=== PATIENT | female | born 1940 | race Caucasian/White ===

== ENCOUNTER 2017-02-08 01:44 | Emergency (ER) | payer MEDICARE, MEDICAID ==
[2017-02-08] MEDS ORDERED: LORazepam 2 MG/ML MDV IVPUSH ONE (02:10)
--- NOTE | 2017-02-08 02:16 | EDM.PDOC ---
ED HISTORY OF PRESENT ILLNESS - General Chief Complaint: Chest Pain Stated Complaint: Chest pain Time Seen by Provider: 02/08/17 02:05 Source of Information: Reports: Patient, EMS, custodial records - History of Present Illness INITIAL COMMENTS - FREE TEXT/NARRATIVE: patient brought over from care center by ambulance for chest pain. pain is localized to sternum does not radiate. onset was sudden. in route she was given ASA and also a nitro with no change in pain. no nausea, vomiting, SOB, diaphoresis. 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 - Related Data Allergies/ADRs: Allergies Allergy/AdvReac Type Severity Reaction Status Date / Time erythromycin base Allergy cannot Verified 12/22/16 23:35 [Erythromycin Base] remember] hydrochlorothiazide Allergy Cannot Verified 12/22/16 23:35 Remember Penicillins Allergy Cannot Verified 12/22/16 23:35 Remember Sulfa (Sulfonamide Allergy Cannot Verified 12/22/16 23:35 Antibiotics) Remember trimethoprim Allergy Cannot Verified 12/22/16 23:35 Remember Home Meds: Home Meds Acetaminophen [Acetaminophen Extra Strength] 500 mg PO BID 04/02/14 [History] Calcium Carbonate/Vitamin D3 [Calcium 250+D] 1 tab PO BID 04/02/14 [History] Cyanocobalamin (Vitamin B-12) [Vitamin B-12] 1,000 mcg PO DAILY 04/02/14 [ History] Docusate Sodium/Sennosides [Senna Plus] 2 tab PO BID 04/02/14 [History] Folic Acid 1 mg PO BEDTIME 04/02/14 [History] Gabapentin [Neurontin] 800 mg PO TID 04/02/14 [History] Levothyroxine [Synthroid] 50 mcg PO DAILY 04/02/14 [History] Losartan [Cozaar] 50 mg PO DAILY 04/02/14 [History] Multivitamin [Multi-Vitamin Daily] 1 tab PO DAILY 04/02/14 [History] Ranitidine [Zantac] 150 mg PO DAILY 04/02/14 [History] carBAMazepine [Carbatrol] 300 mg PO BID 04/02/14 [History] carBAMazepine [TEGretol XR] 200 mg PO BID 04/02/14 [History] Acetaminophen [Tylenol] 325 mg PO Q4HR PRN 09/28/14 [History] Bisacodyl [Dulcolax] 5 mg PO DAILY PRN 09/28/14 [History] Zinc Oxide [Desitin] 1 gm TOP DAILY 09/28/14 [History] Cranberry Fruit Concentrate [Cranberry] 450 mg PO TID 06/30/16 [History] Magnesium 250 mg PO DAILY 06/30/16 [History] Polyethylene Glycol 3350 [MiraLAX] 17 gm PO DAILY 06/30/16 [History] Trolamine Salicylate/Aloe Vera [Aspercreme 10%] 1 gm TOP BID 06/30/16 [History] Bisacodyl [Biscolax] 10 mg RC DAILY PRN 12/23/16 [History] Cyclobenzaprine [Flexeril] 5 mg PO DAILY 12/23/16 [History] Cyclobenzaprine [Flexeril] 5 mg PO Q8HR PRN 12/23/16 [History] Gabapentin [Neurontin] 200 mg PO TID 12/23/16 [History] Polyvinyl Alcohol/Povidone [Hm Artificial Tears Eye Drops] 1 drop EYEBOTH BID [History] Acetaminophen/HYDROcodone [[place] 325-5 MG] 0.5 tab PO BID #1 tablet 12/25/16 [Rx ] Nitrofurantoin Monohyd/M-Cryst [IJD: Nitrofurantoin Haakon-MCR] 100 mg PO BID #8 capsule 12/25/16 [Rx] Past Medical History HEENT History: Reports: Other (see below) Other HEENT History: Dry Eyes Cardiovascular History: Reports: Hypertension Gastrointestinal History: Reports: Chronic constipation, GERD Genitourinary History: Reports: Urinary incontinence, UTI, recurrent Musculoskeletal History: Reports: Osteoporosis, Other (see below) Other Musculoskeletal History: Chronic Pain. Flaccid Hemiplegia affecting right dominant side Neurological History: Reports: Cerebral palsy, Seizure, Other (see below) Other Neuro History: Aphasia (following unspecified Cerebrovascular Disease), flaccid hemiplegia affecting right dominant side, localization-related symptomatic epilepsy and epileptic syndromes with complex partial seizures, not intractable, without status epilepticus Psychiatric History: Reports: Other (see below) Other Psychiatric History: Unspecified Dementia Endocrine/Metabolic History: Reports: Hypothyroidism, Osteoporosis Hematologic History: Reports: Anemia Dermatologic History: Reports: Other (see below) Other Dermatologic History: contact dermatitis - Infectious Disease History Infectious Disease History: Reports: MRSA Other Infectious Disease History: hx of mrsa and ltc isolation Social & Family History - Family History Family Medical History: Unobtainable - Tobacco Use Smoking Status *Q: Never Smoker Second Hand Smoke Exposure: No - Caffeine Use Caffeine Use: Reports: None - Alcohol Use Days Per Week of Alcohol Use: 0 - Recreational Drug Use Recreational Drug Use: No ED ROS GENERAL - Review of Systems Review Of Systems: ROS reveals no pertinent complaints other than HPI. ED EXAM, GENERAL - Physical Exam Exam: See Below Exam Limited By: Language barrier Respiratory/Chest: no respiratory distress, lungs clear, normal breath sounds, other (chest tender upon palpation to sternum area) Cardiovascular: normal peripheral pulses, regular rate, rhythm, no gallop, tachycardia GI/Abdominal: normal bowel sounds, soft Skin Exam: Warm, Dry, Intact EKG INTERPRETATION EKG Date: 02/08/17 Time: 02:05 Rhythm: other (sinus tach) [place]: normal P-wave: present QRS: normal ST-T: normal QT: normal Course - Vital Signs Last Recorded V/S: Last Vital Signs Temp 35.8 C 02/08/17 01:45 Pulse 108 H 02/08/17 01:45 Resp 18 02/08/17 01:45 BP 147/95 H 02/08/17 01:45 Pulse Ox 95 02/08/17 01:45 - Orders/Labs/Meds Orders: Active Orders 24 hr Category Date Time Status EKG 12 Lead [EKG Documentation Completion] [RC] STAT Care 02/08/17 02:08 Active Labs: Laboratory Tests 02/08/17 02/08/17 02/08/17 Range/Units 02:30 02:30 02:30 WBC 6.5 (4.0-10.0) x10^3/uL RBC 3.14 L (4.00-5.50) x10^6/uL Hgb 9.5 L (12.0-16.0) g/dL Hct 30.0 L (33.0-47.0) % MCV 95.5 H (78.0-93.0) fL MCH 30.3 (26.0-32.0) pg MCHC 31.7 L (32.0-36.0) g/dL RDW Coeff of Gabrielle 13.3 (10.0-15.0) % Plt Count 344 (130-400) x10^3/uL Neut % (Auto) 65.8 (50.0-80.0) % Lymph % (Auto) 14.4 L (25.0-50.0) % Haakon % (Auto) 9.8 (2.0-11.0) % Eos % (Auto) 9.4 H (0.0-4.0) % Baso % (Auto) 0.6 (0.2-1.2) % Sodium 142 (136-145) mmol/L Potassium 3.8 (3.5-5.1) mmol/L Chloride 106 (98-107) mmol/L Carbon Dioxide 28 (21-32) mmol/L BUN 27 H (7-18) mg/dL Creatinine 1.2 H (0.55-1.02) mg/dL Est Cr Clr Drug Dosing TNP Estimated GFR (MDRD) 44 Glucose 109 H (74-106) mg/dL Calcium 9.1 (8.5-10.1) mg/dL Corrected Calcium 9.74 (8.5-10.1) mg/dL Total Bilirubin 0.2 (0.2-1.0) mg/dL AST 16 (15-37) U/L ALT 18 (14-59) U/L Alkaline Phosphatase 102 (46-116) U/L Creatine Kinase 24 L (26-192) U/L Troponin I < 0.017 (<=0.056) ng/mL Total Protein 6.8 (6.4-8.2) g/dL Albumin 3.2 L (3.4-5.0) g/dL Globulin 3.6 Albumin/Globulin Ratio 0.89 Meds: Medications Discontinued Medications Generic Name Dose Route Start Last Admin Trade Name Freq PRN Reason Stop Dose Admin Al Hydroxide/Mg Hydroxide 30 ml 02/08/17 02:18 02/08/17 02:30 Gi Cocktail PO 02/08/17 02:19 30 ml ONETIME ONE Administration Lorazepam 0.5 mg 02/08/17 02:10 02/08/17 02:44 Ativan IVPUSH 02/08/17 02:11 0.5 mg ONETIME ONE Administration Departure - Departure Time of Disposition: 03:20 Disposition: DC/[facility]fer to [facility] Reason for Transfer *Q: Other Condition: good Clinical Impression: Esophagitis, Gastroesophageal reflux disease Forms: ED Department Discharge - Problem List & Annotations (1) Gastritis SNOMED Code(s): 4145881 Code(s): K29.70 - GASTRITIS, UNSPECIFIED, WITHOUT BLEEDING Status: Acute Priority: Medium Qualifiers: Chronicity: acute - My Orders Last 24 Hours: My Active Orders 02/08/17 02:08 EKG 12 Lead [EKG Documentation Completion] [RC] STAT - Assessment/Plan Last 24 Hours: My Active Orders 02/08/17 02:08 EKG 12 Lead [EKG Documentation Completion] [RC] STAT Plan: discharge back to [facility]. use antacids PRN omeprazole 20mg daily.
[2017-02-08] MEDS ORDERED: GI Cocktail Oral Solution 30 ML PO ONE (02:18)
[2017-02-08 03:01] LABS: CHLORIDE,CL 106 mmol/L (98-107); SODIUM,NA 142 mmol/L (136-145)
[2017-02-08 06:17] VITALS: BP 118/64
== END 2017-02-08 03:45 ==
LOC: VM.ED 01:44
DX: K20.9 Esophagitis, unspecified (principal); K21.9 Gastro-esophageal reflux disease without esophagitis; I10 Essential (primary) hypertension; Z88.8 Allergy status to other drugs, medicaments and biological substances; Z79.899 Other long term (current) drug therapy; Z88.2 Allergy status to sulfonamides
CPT/HCPCS: 36415; 80053; 82550; 84484; 85025; 93005; 96374; 99285; A9270; J2060

== ENCOUNTER 2017-04-22 21:10 | Emergency (ER) | payer MEDICARE, MEDICAID ==
[2017-04-22] MEDS ORDERED: Sodium Chloride 0.9% 10 ML Syringe FLUSH PRN (21:26)
[2017-04-22] MEDS ORDERED: Sodium Chloride 0.9% 1,000 ML IV SCH (21:30)
--- NOTE | 2017-04-22 21:49 | EDM.PDOC ---
ED HPI GENERAL MEDICAL PROBLEM - General Chief Complaint: Genitourinary Problem Stated Complaint: Possible UTI Time Seen by Provider: 04/22/17 21:11 Source of Information: Reports: EMS Notes Reviewed, Jail Records, RN, RN Notes Reviewed History Limitations: Reports: No Limitations - History of Present Illness INITIAL COMMENTS - FREE TEXT/NARRATIVE: Patient is brought to the ED at [facility] via EMS for possible UTI, fever, and tachycardia. According to [facility] records, patient had been running a low grade temp and seemed more lethargic that usual most of the day. [facility] staff felt the patient needed further assessment and work up, so she was brought to the ED. 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 Patient is very slow to respond. She is able to respond by one-word answers. Onset: Today - Related Data Allergies Allergy/AdvReac Type Severity Reaction Status Date / Time erythromycin base Allergy cannot Verified 12/22/16 23:35 [Erythromycin Base] remember] hydrochlorothiazide Allergy Cannot Verified 12/22/16 23:35 Remember Penicillins Allergy Cannot Verified 12/22/16 23:35 Remember Sulfa (Sulfonamide Allergy Cannot Verified 12/22/16 23:35 Antibiotics) Remember trimethoprim Allergy Cannot Verified 12/22/16 23:35 Remember Home Meds: Home Meds Acetaminophen [Acetaminophen Extra Strength] 500 mg PO BID 04/02/14 [History] Calcium Carbonate/Vitamin D3 [Calcium 250+D] 1 tab PO BID 04/02/14 [History] Cyanocobalamin (Vitamin B-12) [Vitamin B-12] 1,000 mcg PO DAILY 04/02/14 [ History] Docusate Sodium/Sennosides [Senna Plus] 2 tab PO BID 04/02/14 [History] Folic Acid 1 mg PO BEDTIME 04/02/14 [History] Gabapentin [Neurontin] 800 mg PO TID 04/02/14 [History] Levothyroxine [Synthroid] 50 mcg PO DAILY 04/02/14 [History] Losartan [Cozaar] 50 mg PO DAILY 04/02/14 [History] Multivitamin [Multi-Vitamin Daily] 1 tab PO DAILY 04/02/14 [History] Ranitidine [Zantac] 150 mg PO DAILY 04/02/14 [History] carBAMazepine [Carbatrol] 300 mg PO BID 04/02/14 [History] carBAMazepine [TEGretol XR] 200 mg PO BID 04/02/14 [History] Acetaminophen [Tylenol] 325 mg PO Q4HR PRN 09/28/14 [History] Bisacodyl [Dulcolax] 5 mg PO DAILY PRN 09/28/14 [History] Zinc Oxide [Desitin] 1 gm TOP DAILY 09/28/14 [History] Cranberry Fruit Concentrate [Cranberry] 450 mg PO TID 06/30/16 [History] Magnesium 250 mg PO DAILY 06/30/16 [History] Polyethylene Glycol 3350 [MiraLAX] 17 gm PO DAILY 06/30/16 [History] Trolamine Salicylate/Aloe Vera [Aspercreme 10%] 1 gm TOP BID 06/30/16 [History] Bisacodyl [Biscolax] 10 mg RC DAILY PRN 12/23/16 [History] Cyclobenzaprine [Flexeril] 5 mg PO DAILY 12/23/16 [History] Cyclobenzaprine [Flexeril] 5 mg PO Q8HR PRN 12/23/16 [History] Gabapentin [Neurontin] 200 mg PO TID 12/23/16 [History] Polyvinyl Alcohol/Povidone [Hm Artificial Tears Eye Drops] 1 drop EYEBOTH BID [History] Acetaminophen/HYDROcodone [[place] 325-5 MG] 0.5 tab PO BID #1 tablet 12/25/16 [Rx ] Nitrofurantoin Monohyd/M-Cryst [IJD: Nitrofurantoin [place]-MCR] 100 mg PO BID #8 capsule 12/25/16 [Rx] Omeprazole 20 mg PO DAILY #30 cap.cr 02/08/17 [Rx] Ciprofloxacin HCl [Cipro] 500 mg PO BID #10 tablet 04/22/17 [Rx] Past Medical History HEENT History: Reports: Other (See Below) Other HEENT History: Dry Eyes Cardiovascular History: Reports: Hypertension Gastrointestinal History: Reports: Chronic Constipation, GERD Genitourinary History: Reports: Urinary Incontinence, UTI, Recurrent Musculoskeletal History: Reports: Osteoporosis, Other (See Below) Other Musculoskeletal History: Chronic Pain. Flaccid Hemiplegia affecting right dominant side Neurological History: Reports: Cerebral Palsy, Seizure, Other (See Below) Other Neuro History: Aphasia (following unspecified Cerebrovascular Disease), flaccid hemiplegia affecting right dominant side, localization-related symptomatic epilepsy and epileptic syndromes with complex partial seizures, not intractable, without status epilepticus Psychiatric History: Reports: Other (See Below) Other Psychiatric History: Unspecified Dementia Endocrine/Metabolic History: Reports: Hypothyroidism, Osteoporosis Hematologic History: Reports: Anemia Dermatologic History: Reports: Other (See Below) Other Dermatologic History: contact dermatitis - Infectious Disease History Infectious Disease History: Reports: MRSA Other Infectious Disease History: hx of mrsa and ltc isolation Social & Family History - Family History Family Medical History: Noncontributory - Tobacco Use Smoking Status *Q: Never Smoker Second Hand Smoke Exposure: No - Caffeine Use Caffeine Use: Reports: None - Alcohol Use Days Per Week of Alcohol Use: 0 - Recreational Drug Use Recreational Drug Use: No ED ROS GENERAL - Review of Systems Review Of Systems: ROS reveals no pertinent complaints other than HPI. ( obtained from [facility] staff and EMS report) Constitutional: Reports: Fever. Denies: Chills, Weakness Respiratory: Denies: Shortness of Breath, Cough Cardiovascular: Denies: Chest Pain, Palpitations GI/Abdominal: Denies: Abdominal Pain, Nausea, Vomiting : Reports: Pain Skin: Reports: No Symptoms Neurological: Reports: Other (seemed a little more lethargic) ED EXAM, RENAL/ - Physical Exam Exam: See Below Exam Limited By: No Limitations General Appearance: Alert, No Apparent Distress Respiratory/Chest: No Respiratory Distress, Lungs Clear, Normal Breath Sounds Cardiovascular: Normal Peripheral Pulses, Regular Rate, Rhythm, Tachycardia GI/Abdominal: Soft, Non-Tender, Abnormal Bowel Sounds (Hypoactive) (Female) Exam: Deferred Neurological: Alert, Other (unable to fully asses due to previous CVA; patient is able to answer with one word answers) Skin Exam: Warm, Dry, Intact, Normal Color, No Rash Course - Orders/Labs/Meds Orders: Active Orders 24 hr Category Date Time Status Ciprofloxacin in D5W [Cipro in D5W 400 MG/200 ML] 400 Med 04/22/17 22:29 Ordered mg Premix Bag 1 bag IV ONETIME Sodium Chloride 0.9% [Normal Saline] 1,000 ml Med 04/22/17 21:30 Active IV ASDIRECTED Sodium Chloride 0.9% [Saline Flush] Med 04/22/17 21:26 Active 10 ml FLUSH ASDIRECTED PRN Peripheral IV Insertion Adult [OM.PC] Routine Oth 04/22/17 21:26 Ordered Medication Orders Sodium Chloride (Normal Saline) 1,000 mls @ 999 mls/hr IV ASDIRECTED ELLIOTT Sodium Chloride (Saline Flush) 10 ml FLUSH ASDIRECTED PRN PRN Reason: Keep Vein Open Labs: Laboratory Tests 04/22/17 04/22/17 04/22/17 Range/Units 21:51 21:51 21:51 WBC 12.8 H (4.0-10.0) x10^3/uL RBC 3.14 L (4.00-5.50) x10^6/uL Hgb 9.3 L (12.0-16.0) g/dL Hct 28.5 L (33.0-47.0) % MCV 90.8 D (78.0-93.0) fL MCH 29.6 (26.0-32.0) pg MCHC 32.6 (32.0-36.0) g/dL RDW Coeff of Gabrielle 13.4 (10.0-15.0) % Plt Count 314 (130-400) x10^3/uL Neut % (Auto) 86.8 H (50.0-80.0) % Lymph % (Auto) 6.7 L (25.0-50.0) % [place] % (Auto) 4.8 (2.0-11.0) % Eos % (Auto) 1.5 (0.0-4.0) % Baso % (Auto) 0.2 (0.2-1.2) % Sodium 143 (136-145) mmol/L Potassium 4.5 (3.5-5.1) mmol/L Chloride 109 H (98-107) mmol/L Carbon Dioxide 24 (21-32) mmol/L BUN 30 H (7-18) mg/dL Creatinine 1.1 H (0.55-1.02) mg/dL Est Cr Clr Drug Dosing TNP Estimated GFR (MDRD) 48 Glucose 119 H (74-106) mg/dL Lactic Acid 1.9 (0.4-2.0) mmol/L Calcium 8.9 (8.5-10.1) mg/dL C-Reactive Protein 4.1 H (<=0.9) mg/dL Urine Color (YELLOW) Urine Appearance (CLEAR) Urine pH (5.0-8.0) Ur Specific [place] Urine Protein (NEGATIVE) mg/dL Urine Glucose (UA) (NEGATIVE) mg/dL Urine Ketones (NEGATIVE) mg/dL Urine Occult Blood (NEGATIVE) Urine Nitrite (NEGATIVE) Urine Bilirubin (NEGATIVE) Urine Urobilinogen (0.2) EU/dL Ur Leukocyte Esterase (NEGATIVE) Urine RBC (NOT SEEN) /HPF Urine WBC (NOT SEEN) /HPF Ur Squamous Epith Cells (NEGATIVE) /HPF Amorphous Sediment Urine Bacteria (NEGATIVE) /HPF Urine Mucus (NEGATIVE) /LPF 04/22/17 Range/Units 21:51 WBC (4.0-10.0) x10^3/uL RBC (4.00-5.50) x10^6/uL Hgb (12.0-16.0) g/dL Hct (33.0-47.0) % MCV (78.0-93.0) fL MCH (26.0-32.0) pg MCHC (32.0-36.0) g/dL RDW Coeff of Gabrielle (10.0-15.0) % Plt Count (130-400) x10^3/uL Neut % (Auto) (50.0-80.0) % Lymph % (Auto) (25.0-50.0) % [place] % (Auto) (2.0-11.0) % Eos % (Auto) (0.0-4.0) % Baso % (Auto) (0.2-1.2) % Sodium (136-145) mmol/L Potassium (3.5-5.1) mmol/L Chloride (98-107) mmol/L Carbon Dioxide (21-32) mmol/L BUN (7-18) mg/dL Creatinine (0.55-1.02) mg/dL Est Cr Clr Drug Dosing Estimated GFR (MDRD) Glucose (74-106) mg/dL Lactic Acid (0.4-2.0) mmol/L Calcium (8.5-10.1) mg/dL C-Reactive Protein (<=0.9) mg/dL Urine Color Light yellow (YELLOW) Urine Appearance Turbid H (CLEAR) Urine pH 7.0 (5.0-8.0) Ur Specific [place] 1.020 Urine Protein 30 H (NEGATIVE) mg/dL Urine Glucose (UA) Negative (NEGATIVE) mg/dL Urine Ketones Negative (NEGATIVE) mg/dL Urine Occult Blood Trace-lysed H (NEGATIVE) Urine Nitrite Negative (NEGATIVE) Urine Bilirubin Negative (NEGATIVE) Urine Urobilinogen 0.2 (0.2) EU/dL Ur Leukocyte Esterase Small H (NEGATIVE) Urine RBC 0-5 (NOT SEEN) /HPF Urine WBC 10-20 H (NOT SEEN) /HPF Ur Squamous Epith Cells Few H (NEGATIVE) /HPF Amorphous Sediment Many Urine Bacteria Many H (NEGATIVE) /HPF Urine Mucus Few H (NEGATIVE) /LPF Meds: Medications Generic Name Dose Route Start Last Admin Trade Name Freq PRN Reason Stop Dose Admin Sodium Chloride 1,000 mls @ 999 mls/hr 04/22/17 21:30 Normal Saline IV ASDIRECTED ELLIOTT Sodium Chloride 10 ml 04/22/17 21:26 Saline Flush FLUSH ASDIRECTED PRN Keep Vein Open Departure - Departure Time of Disposition: 22:25 Disposition: DC/[facility]fer to [facility] Condition: good Clinical Impression: Dehydration Urinary tract infection Qualifiers: Urinary tract infection type: acute cystitis Hematuria presence: with hematuria Qualified Code(s): N30.01 - Acute cystitis with hematuria - Discharge Information Prescriptions: Ciprofloxacin HCl [Cipro] 500 mg PO BID #10 tablet Instructions: Urinary Tract Infection, Adult Referrals: Ivy Olson DO [Primary Care Provider] - Forms: ED Department Discharge Additional Instructions: 1. Stay well hydrated and rest 2. Take medications for the full coarse, even if you are feeling better 3. Recommend drinking cranberry juice 4. See your Primary as symptoms warrant - Problem List Review Problem List Initiated/Reviewed/Updated: Yes - My Orders Last 24 Hours: My Active Orders 04/22/17 21:26 Sodium Chloride 0.9% [Saline Flush] 10 ml FLUSH ASDIRECTED PRN Peripheral IV Insertion Adult [OM.PC] Routine 04/22/17 21:30 Sodium Chloride 0.9% [Normal Saline] 1,000 ml IV ASDIRECTED 04/22/17 22:29 Ciprofloxacin in D5W [Cipro in D5W 400 MG/200 ML] 400 mg Premix Bag 1 bag IV ONETIME - Assessment/Plan Last 24 Hours: My Active Orders 04/22/17 21:26 Sodium Chloride 0.9% [Saline Flush] 10 ml FLUSH ASDIRECTED PRN Peripheral IV Insertion Adult [OM.PC] Routine 04/22/17 21:30 Sodium Chloride 0.9% [Normal Saline] 1,000 ml IV ASDIRECTED 04/22/17 22:29 Ciprofloxacin in D5W [Cipro in D5W 400 MG/200 ML] 400 mg Premix Bag 1 bag IV ONETIME
[2017-04-22 22:16] LABS: CHLORIDE,CL 109 mmol/L (98-107); SODIUM,NA 143 mmol/L (136-145)
[2017-04-22] MEDS ORDERED: Ciprofloxacin in D5W 400 MG in Premix Bag 1 BAG IV ONE ×2 (22:29)
[2017-04-22 22:46] VITALS: BP 120/73
== END 2017-04-23 00:30 ==
LOC: VM.ED 21:10
DX: N30.01 Acute cystitis with hematuria (principal); E86.0 Dehydration; I10 Essential (primary) hypertension; K59.00 Constipation, unspecified; K21.9 Gastro-esophageal reflux disease without esophagitis; E03.9 Hypothyroidism, unspecified; D64.9 Anemia, unspecified; M81.0 Age-related osteoporosis without current pathological fracture; Z88.1 Allergy status to other antibiotic agents; Z88.0 Allergy status to penicillin; Z88.8 Allergy status to other drugs, medicaments and biological substances; Z88.2 Allergy status to sulfonamides; Z79.899 Other long term (current) drug therapy; Z87.440 Personal history of urinary (tract) infections
CPT/HCPCS: 36415; 80048; 81001; 83605; 85025; 86140; 96361; 96365; 99283; 99285; J0744; J7030

== ENCOUNTER 2018-02-05 15:34 | Inpatient (IN) | payer MEDICARE, MEDICAID ==
[2018-02-05] MEDS ORDERED: Levofloxacin/Dextrose 5%-Water 500 MG in Premix Bag 1 BAG IV SCH (16:00)
[2018-02-05] MEDS: Lactated Ringers 1,000 ML IV SCH (16:51)
[2018-02-05] MEDS ORDERED: Bisacodyl 10 MG Supp RECTAL PRN (17:33)
[2018-02-05] MEDS ORDERED: Cyclobenzaprine 10 MG Tab PO PRN (17:33)
[2018-02-05] MEDS ORDERED: Aluminum Hydroxide/Magnesium Hydroxide/Simethicone Susp 30 ML Cup PO PRN (17:33)
[2018-02-05] MEDS ORDERED: Acetaminophen 325 MG Tab PO PRN (17:33)
[2018-02-05] MEDS ORDERED: Bisacodyl 5 MG Tab PO PRN (17:33)
[2018-02-05] MEDS ORDERED: guaiFENesin/Dextromethorphan 100-10 MG/5 ML Soln 10 ML Cup PO PRN (17:33)
[2018-02-05 19:00] LABS: CHLORIDE,CL 105 mmol/L (98-107); SODIUM,NA 145 mmol/L (136-145)
[2018-02-05] MEDS ORDERED: carBAMazepine 100 MG Cap.ER PO SCH (20:00)
[2018-02-05] MEDS: Gabapentin 100 MG Cap PO SCH (20:45)
[2018-02-05] MEDS: carBAMazepine 100 MG Cap.ER PO SCH (20:45)
[2018-02-05] MEDS: Folic Acid 1 MG Tab PO SCH (20:45)
[2018-02-05] MEDS: Calcium Carbonate/Vitamin D3 1250 MG-200 Unit Tab PO SCH (20:45)
[2018-02-05] MEDS: Gabapentin 400 MG Cap PO SCH (20:45)
[2018-02-05] MEDS: Acetaminophen 500 MG Tab PO SCH (20:45)
[2018-02-05] MEDS: Enoxaparin 30 MG/0.3 ML Syringe SUBCUT SCH (21:06)
[2018-02-05] MEDS: Menthol/Methyl Salicylate 85 GM Tube TOP SCH (21:08)
--- NOTE | 2018-02-06 00:27 | HP ---
HISTORY OF PRESENT ILLNESS: The patient presented to the clinic feeling quite weak, fatigued with low blood pressure, elevated pulse, and low-grade temperature. To note, the patient was seen a week ago for weakness and decline of health, was seen by Melissa Larson on 01/27/2018 and found to have UTI with urinalysis showing cloudy urine, greater than 50 white blood cells per high- powered field, 3 to 5 red blood cells, few epithelial cells, many bacteria, white blood cells in clumps, crystals. No urine culture was done. She was placed on Cipro 250 b.i.d. for 5 days and told to push fluids. Assistant Passenger Locomotive Engineer from the [facility] said that the patient has been declining of health for the past month, feeling more weaker, confused, and unable to sit up. Today, she had had a loose stool right before lunch, but it is unclear if she has had multiple loose stools. The patient has had a history of MRSA before, but not C. difficile. The patient has poor swallowing in the past 24 hours. Her urine has been extremely foul smelling. She has been incontinent. She sleeps and naps quite a bit. Family is concerned about wanting her hospitalized, but nobody attended her today other than the [facility] Attendant. It was noted at the [facility], her blood pressure was 82/51, pulse was 115, temperature 99.4, respiratory rate 20, and sats are 96%. The patient had last been admitted for urosepsis in 12/2016. MEDICATIONS: The patient is currently on acetaminophen 325 1 every 4 hours as needed for fever, acetaminophen 500 mg 2 pills twice a day, Aspercreme lotion 10% to neck twice a day, bisacodyl tablet Delayed Release 5 mg p.r.n. constipation, bisacodyl suppository 10 mg as needed for constipation, calcium citrate with vitamin D 315/250 1 tablet twice a day, carbamazepine Extended Release 300 mg twice a day, Cozaar 50 mg 1 pill daily, cranberry 425 mg 1 pill 3 times a day, Desitin ointment applied to sabra-area 1 time a day, ferrous gluconate 1 pill 1 time a day, Flexeril 5 mg every 8 hours as needed for muscle spasm, Flexeril 5 mg 1 pill daily, folic acid 1 mg 1 pill daily, Good Sense Artificial Tears 1 drop both eyes twice a day, levothyroxine 50 mcg 1 pill daily, Maalox 10 mL p.r.n. upset stomach, magnesium 250 mg 1 pill a day, MiraLAX 17 g by mouth daily, multivitamin 1 pill a day, Neurontin 100 mg 2 pills 3 times a day, Neurontin 800 mg 1 pill 3 times a day, omeprazole 20 mg 1 pill a day, senna plus 2 tablets twice a day, Tegretol Extended Release 2 capsules by mouth 2 times a day, Tussin DM 10 mL q.4 h. p.r.n., and vitamin C 250 mg 1 pill daily. ALLERGIES: Erythromycin, hydrochlorothiazide, penicillin, trimethoprim sulfa antibiotics. Her diet is regular. Code level status is 1. The patient is in a wheelchair. PAST MEDICAL HISTORY: The patient has dementia with mental retardation with cognitive function declining. 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, she has had right femur fracture, Achilles tendon lengthening surgery at [facility] in 1993, she has had atrophic vaginitis, hallux valgus, hyponatremia in the past, hypertension, eczema, urticaria, heartburn, she has had MRSA and she had a furuncle; also had urine on 03/2015 and 11/2016, she has had urge incontinence, improved with Ditropan, in the past, she has osteoporosis, she has had mild anemia, hypothyroidism, femur fracture in 1991, lichen simplex chronicus, nocturnal leg cramps, cataracts, constipation, chronic pain, prediabetes, and partial symptomatic epilepsy with complex partial seizures, not intractable. PAST SURGICAL HISTORY: 02/1992 had shortening of her leg, she had breast biopsy in 1999. VACCINATIONS: She had Pneumovax 23 in 2006, tetanus in 1999, she has had pneumococcal 13 on 09/26/2016, and Tdap on 12/23/2016. She has not had a Zostavax shot. FAMILY HISTORY: Mother has had cataracts. Otherwise, remainder of family history is negative. SOCIAL HISTORY: The patient had lived with her parents until she was younger. She moved to [facility] in [facility] since 1990 until 2013, she had moved to [facility]. Her father is a retired cruz, lives on a [place] nearby. The patient sees Dr. Mccormack for seizure disorder, usually in a wheelchair, she can raise herself from the sink. REVIEW OF SYSTEMS: The patient has mild dysarthria, weakness, and some difficulty swallowing. No coughing. She denies pain right now. She is hemiparetic on the right-side with contractures. She has had a loose stool today. No cramping. She generally feels weak. She is not able to offer any history. History is obtained from caregiver who accompanies her today. PHYSICAL EXAMINATION: Vital Signs: Her vital signs show that her blood pressure here is 110/64, temperature is 99.3, pulse is 118, and sats are 94% on room air. General: The patient is sitting in a wheelchair. She is weak. She is leaning off to the right-side. She has a facial droop on one side. HEENT: Her pupils are equal and reactive to light. Mucous membranes are dry in her mouth. Heart: Tachycardic. Lungs: Have diminished breath sounds on bases. I do not appreciate any crackles or wheezes. The patient has a very difficult time sitting forward in a wheelchair. Abdomen: Bowel sounds are present. Soft, nontender. Extremities: No edema. Her right leg is in a brace as well as has an elevated shoe. Left leg, she can move around. Neurologic: She is hemiparetic on the right-side. She is intellectually delayed. She has had previous seizure disorder. Psych: She has had some dysarthria, difficult to tell her mood. IMPRESSION: 1. Sepsis, suspect urosepsis. 2. Tachycardia. 3. Hypotension. 4. Dehydration, mild. 5. Seizure disorder. 6. Hypertension. 7. Hypothyroidism. 8. Osteoporosis. PLAN: Because the patient has abnormal vital signs and recently treated for outpatient bladder infection, I do feel she should be placed on inpatient care to be closely monitored. She needs IV hydration. We will place her on IV Levaquin due to her multiple allergies. She will be placed on Lovenox for DVT prophylaxis. We will check an EKG on her. Because of her increasing weakness, we will make certain that her levels of her seizure medications are within normal range. The patient's code level status is full level code and this is confirmed with the [facility]. The patient will be cared for by myself tomorrow and on-call provider and she will be turned over to Dr. Ivy Olson's care when she returns on 02/09/2018 if she is still here. Lab was delayed and results not available at time of dictation. GM02/05/2018 17:04:00 MODL: 02/06/2018 00:12:27 /[id number] MTDD
[2018-02-06] MEDS: Lactated Ringers 1,000 ML IV SCH ×2 (04:55→15:10)
[2018-02-06] MEDS ORDERED: Levothyroxine 50 MCG Tab PO SCH (08:00)
[2018-02-06] MEDS: Cyclobenzaprine 10 MG Tab PO SCH (08:00)
[2018-02-06] MEDS ORDERED: Omeprazole 20 MG Cap.CR PO SCH (08:00)
[2018-02-06] MEDS: Ascorbic Acid 500 MG Tab PO SCH (08:02)
[2018-02-06] MEDS: Calcium Carbonate/Vitamin D3 1250 MG-200 Unit Tab PO SCH ×2 (08:06→20:27)
[2018-02-06] MEDS: Polyethylene Glycol 3350 Powder 17 GM Packet PO SCH (08:07)
[2018-02-06] MEDS: Ferrous Sulfate 325 MG Tab PO SCH (08:08)
[2018-02-06] MEDS: carBAMazepine 100 MG Cap.ER PO SCH ×2 (08:09→20:26)
[2018-02-06] MEDS: Gabapentin 100 MG Cap PO SCH ×3 (08:11→20:27)
[2018-02-06] MEDS: Gabapentin 400 MG Cap PO SCH ×3 (08:11→20:27)
[2018-02-06] MEDS: Acetaminophen 500 MG Tab PO SCH ×2 (08:12→20:26)
[2018-02-06] MEDS: Magnesium Oxide 400 MG Tab PO SCH (08:13)
[2018-02-06] MEDS: Multivitamins with Iron/Calcium/Folic Acid/Minerals Tab PO SCH (08:14)
[2018-02-06] MEDS: Menthol/Methyl Salicylate 85 GM Tube TOP SCH ×2 (08:15→20:27)
[2018-02-06] MEDS: Losartan 50 MG Tab PO SCH (08:22)
[2018-02-06] MEDS: Enoxaparin 30 MG/0.3 ML Syringe SUBCUT SCH (08:23)
--- NOTE | 2018-02-06 09:25 | PN ---
Progress Note for CHERYLE JAMES Date: 02/06/2018 Room #: VM.218 SUBJECTIVE: The patient has had a stable night. She is a little bit more alert, arousable. She is not coughing or short of breath. She has only had one formed stool since being admitted. OBJECTIVE: Vital Signs: Her pulses stayed around 110 for her, the patient's pulse was strong, sinus rhythm. Her temperature is 37.2. Blood pressure is better at 126/68, respiratory rate 16, saturations are 95 on room air. General: The patient is more alert, sitting in the bed, does smile, does recognize me. Heart: Tachycardic. Lungs: Clear to auscultation. Abdomen: Soft. Extremities: Lower extremities are slender, thin. She is hemiparetic on the right side. LABORATORY DATA: Shows her white blood cell count is improved to 5.2 from 8.0, hemoglobin has dropped to 9.2 from 10.0, platelets are 423 with 68 segs, 1 band, 19 lymphocytes. Sodium was 144, potassium 3.8, creatinine is improved slightly to 1.3, BUN 20, glucose is 100. Lactic acid was normal on admit at 1.9; was checked 4 hours later, was 0.9. Her calcium was 10.2, which has improved. Her CRP was 20.1 on admission. IMPRESSION: 1. Systemic inflammatory response syndrome. 2. Most likely urosepsis. 3. Tachycardia with dehydration. 4. Dementia. PLAN: We will continue IV fluids at the same rate. We will continue her on Levaquin, but we will reduce her dose to 250 mg q.24 hours per pharmacy's recommendations and Dr. Mena will cover over the weekend, do anticipate she will probably need to stay over the weekend. GM02/06/2018 08:42:31 MODL: 02/06/2018 09:10:10 /[id number]
[2018-02-06] MEDS: Levofloxacin/Dextrose 5%-Water 250 MG in Premix Bag 1 BAG IV SCH (15:09)
[2018-02-06] MEDS: Dextran 70/Hypromellose/PF Ophth Soln 0.9 ML UD EYEBOTH SCH ×3 (15:46→20:29)
[2018-02-06] MEDS: Folic Acid 1 MG Tab PO SCH (20:27)
[2018-02-07] MEDS: Lactated Ringers 1,000 ML IV SCH (02:47)
[2018-02-07] MEDS: Omeprazole 20 MG Cap.CR PO SCH (06:04)
[2018-02-07] MEDS: Levothyroxine 50 MCG Tab PO SCH (06:05)
[2018-02-07] MEDS: Enoxaparin 30 MG/0.3 ML Syringe SUBCUT SCH (08:18)
[2018-02-07] MEDS: Calcium Carbonate/Vitamin D3 1250 MG-200 Unit Tab PO SCH ×2 (08:18→20:14)
[2018-02-07] MEDS: Acetaminophen 500 MG Tab PO SCH ×2 (08:19→20:14)
[2018-02-07] MEDS: Gabapentin 100 MG Cap PO SCH ×3 (08:19→20:14)
[2018-02-07] MEDS: Multivitamins with Iron/Calcium/Folic Acid/Minerals Tab PO SCH (08:19)
[2018-02-07] MEDS: Cyclobenzaprine 10 MG Tab PO SCH (08:20)
[2018-02-07] MEDS: Ferrous Sulfate 325 MG Tab PO SCH (08:20)
[2018-02-07] MEDS: Dextran 70/Hypromellose/PF Ophth Soln 0.9 ML UD EYEBOTH SCH ×2 (08:21→20:14)
[2018-02-07] MEDS: Gabapentin 400 MG Cap PO SCH ×3 (08:21→20:14)
[2018-02-07] MEDS: Losartan 50 MG Tab PO SCH (08:22)
[2018-02-07] MEDS: Ascorbic Acid 500 MG Tab PO SCH (08:22)
[2018-02-07] MEDS: Menthol/Methyl Salicylate 85 GM Tube TOP SCH ×2 (08:24→20:16)
[2018-02-07] MEDS: Magnesium Oxide 400 MG Tab PO SCH (08:24)
[2018-02-07] MEDS: carBAMazepine 100 MG Cap.ER PO SCH ×2 (08:25→20:14)
[2018-02-07] MEDS: Polyethylene Glycol 3350 Powder 17 GM Packet PO SCH (08:26)
--- NOTE | 2018-02-07 11:05 | PCM.PN ---
- General Info Date of Service: 02/07/18 Admission Dx/Problem (Free Text): History: Admitted 2 days ago with hypotension, fever, lethargy, presumed urosepsis. She says she feels better now but does not remember getting sick or coming to the hospital. Her creatinine is improved and her BP is normal, she is fairly alert now. She is getting IV fluid but had good intake of food and fluids this morning. She is getting IV Levaquin because initially she was not able to take in orally very well. Exam: -She remembers me and speaks clearly and smiles appropriately, seems oriented, although she is known to have mild dementia along with her mild intellectual disability -Lungs clear -Heart sounds normal and regular, VS OK Impression: -Urosepsis with hypotension and fever, now improved Plan: -Switch to saline lock plus regular diet -Plan to switch to oral Levaquin tomorrow and probably discharge on 02/09 - Patient Data Vitals - Most Recent: Last Vital Signs Temp 36.4 C 02/07/18 09:45 Pulse 89 02/07/18 09:45 Resp 16 02/07/18 09:45 BP 116/72 02/07/18 09:45 Pulse Ox 96 02/07/18 09:45 Weight - Most Recent: 65.227 kg I&O - Last 24 Hours: Intake & Output 02/06/18 02/07/18 02/07/18 22:59 06:59 14:59 Intake Total 1916 1627 425 Output Total 200 Balance 1716 1627 425 Lab Results Last 24 Hours: Laboratory Results - last 24 hr 02/05/18 02/06/18 02/07/18 Range/Units 18:04 14:25 07:01 WBC 5.3 (4.0-10.0) x10^3/uL RBC 2.64 L (4.00-5.50) x10^6/uL Hgb 8.3 L (12.0-16.0) g/dL Hct 26.2 L (33.0-47.0) % MCV 99.2 H (78.0-93.0) fL MCH 31.4 (26.0-32.0) pg MCHC 31.7 L (32.0-36.0) g/dL RDW Coeff of Gabrielle 13.4 (10.0-15.0) % Plt Count 400 (130-400) x10^3/uL Neut % (Auto) 66.5 (50.0-80.0) % Lymph % (Auto) 15.8 L (25.0-50.0) % [place] % (Auto) 11.4 H (2.0-11.0) % Eos % (Auto) 5.7 H (0.0-4.0) % Baso % (Auto) 0.6 (0.2-1.2) % Sodium (136-145) mmol/L Potassium (3.5-5.1) mmol/L Chloride (98-107) mmol/L Carbon Dioxide (21-32) mmol/L BUN (7-18) mg/dL Creatinine (0.55-1.02) mg/dL Est Cr Clr Drug Dosing mL/min Estimated GFR (MDRD) Glucose (74-106) mg/dL Calcium (8.5-10.1) mg/dL C-Reactive Protein (<=0.9) mg/dL Urine Color Yellow (YELLOW) Urine Appearance Slightly cloudy H (CLEAR) Urine pH 8.5 H (5.0-8.0) Ur Specific [place] 1.020 Urine Protein 30 H (NEGATIVE) mg/dL Urine Glucose (UA) Negative (NEGATIVE) mg/dL Urine Ketones Negative (NEGATIVE) mg/dL Urine Occult Blood Small H (NEGATIVE) Urine Nitrite Negative (NEGATIVE) Urine Bilirubin Negative (NEGATIVE) Urine Urobilinogen 0.2 (0.2) EU/dL Ur Leukocyte Esterase Large H (NEGATIVE) Urine RBC 10-20 H (NOT SEEN) /HPF Urine WBC Packed (NOT SEEN) /HPF Ur Squamous Epith Cells Moderate H (NEGATIVE) /HPF Urine Bacteria Many H (NEGATIVE) /HPF Urine Mucus Few H (NEGATIVE) /LPF Carbamazepine 9.8 (4.0-12.0) ug/mL //18 Range/Units 07:01 WBC (4.0-10.0) x10^3/uL RBC (4.00-5.50) x10^6/uL Hgb (12.0-16.0) g/dL Hct (33.0-47.0) % MCV (78.0-93.0) fL MCH (26.0-32.0) pg MCHC (32.0-36.0) g/dL RDW Coeff of Gabrielle (10.0-15.0) % Plt Count (130-400) x10^3/uL Neut % (Auto) (50.0-80.0) % Lymph % (Auto) (25.0-50.0) % [place] % (Auto) (2.0-11.0) % Eos % (Auto) (0.0-4.0) % Baso % (Auto) (0.2-1.2) % Sodium 140 (136-145) mmol/L Potassium 3.5 (3.5-5.1) mmol/L Chloride 105 (98-107) mmol/L Carbon Dioxide 28 (21-32) mmol/L BUN 16 (7-18) mg/dL Creatinine 1.2 H (0.55-1.02) mg/dL Est Cr Clr Drug Dosing 28.65 mL/min Estimated GFR (MDRD) 44 Glucose 95 (74-106) mg/dL Calcium 10.0 (8.5-10.1) mg/dL C-Reactive Protein 15.2 H (<=0.9) mg/dL Urine Color (YELLOW) Urine Appearance (CLEAR) Urine pH (5.0-8.0) Ur Specific [place] Urine Protein (NEGATIVE) mg/dL Urine Glucose (UA) (NEGATIVE) mg/dL Urine Ketones (NEGATIVE) mg/dL Urine Occult Blood (NEGATIVE) Urine Nitrite (NEGATIVE) Urine Bilirubin (NEGATIVE) Urine Urobilinogen (0.2) EU/dL Ur Leukocyte Esterase (NEGATIVE) Urine RBC (NOT SEEN) /HPF Urine WBC (NOT SEEN) /HPF Ur Squamous Epith Cells (NEGATIVE) /HPF Urine Bacteria (NEGATIVE) /HPF Urine Mucus (NEGATIVE) /LPF Carbamazepine (4.0-12.0) ug/mL David Results Last 24 Hours: Microbiology 02/06/18 05:00 Clostridium difficile (PCR) - Final Stool / Feces 02/05/18 18:04 Aerobic Blood Culture - Preliminary Blood - Venous - Lab Draw NO GROWTH AFTER 1 DAY Anaerobic Blood Culture - Preliminary NO GROWTH AFTER 1 DAY 02/05/18 17:46 Aerobic Blood Culture - Preliminary Blood - Venous NO GROWTH AFTER 1 DAY Anaerobic Blood Culture - Final Med Orders - Current: Current Medications Acetaminophen (Tylenol Extra Strength) 500 mg PO BID [facility] Last Admin: 02/07/18 08:19 Dose: 500 mg Acetaminophen (Tylenol) 325 mg PO Q4HR PRN PRN Reason: Pain/Fever Al Hydroxide/Mg Hydroxide (Mag-Al Plus) 10 ml PO DAILY PRN PRN Reason: reflux/upset stomach Artificial Tears (Tears Naturale Free) 1 each EYEBOTH BID [facility] Last Admin: 02/07/18 08:21 Dose: 1 each Ascorbic Acid (Vitamin C) 250 mg PO DAILY [facility] Last Admin: 02/07/18 08:22 Dose: 250 mg Bisacodyl (Dulcolax) 10 mg RECTAL DAILY PRN PRN Reason: Constipation Bisacodyl (Dulcolax) 5 mg PO DAILY PRN PRN Reason: Constipation Calcium Carbonate (Calcium Carbonate/Vitamin D 1250 Mg-200 Unit) 1 tab PO BID [facility] Last Admin: 02/07/18 08:18 Dose: 1 tab Carbamazepine (Tegretol Xr) 500 mg PO BID [facility] Last Admin: 02/07/18 08:25 Dose: 500 mg Cyclobenzaprine HCl (Flexeril) 5 mg PO DAILY [facility] Last Admin: 02/07/18 08:20 Dose: 5 mg Cyclobenzaprine HCl (Flexeril) 5 mg PO Q8HR PRN PRN Reason: Muscle Spasm Enoxaparin Sodium (Lovenox) 30 mg SUBCUT DAILY [facility] Last Admin: 02/07/18 08:18 Dose: 30 mg Ferrous Sulfate (Ferrous Sulfate) 325 mg PO DAILY [facility] Last Admin: 02/07/18 08:20 Dose: 325 mg Folic Acid (Folic Acid) 1 mg PO BEDTIME [facility] Last Admin: 02/06/18 20:27 Dose: 1 mg Gabapentin (Neurontin) 200 mg PO TID [facility] Last Admin: 02/07/18 08:19 Dose: 200 mg Gabapentin (Neurontin) 800 mg PO TID [facility] Last Admin: 02/07/18 08:21 Dose: 800 mg Guaifenesin/Dextromethorphan (Robitussin Dm) 10 ml PO Q4H PRN PRN Reason: cough and chest congestion Levofloxacin/Dextrose 250 mg/ (Premix) 50 mls @ 50 mls/hr IV Q24H [facility] Last Admin: 02/06/18 15:09 Dose: 50 mls/hr Levothyroxine Sodium (Synthroid) 50 mcg PO DAILY@0700 [facility] Last Admin: 02/07/18 06:05 Dose: 50 mcg Losartan Potassium (Cozaar) 50 mg PO DAILY [facility] Last Admin: 02/07/18 08:22 Dose: 50 mg Magnesium Oxide (Magnesium Oxide) 400 mg PO DAILY [facility] Last Admin: 02/07/18 08:24 Dose: 400 mg Methyl Salicylate (Icy Hot Cream) 0 gm TOP BID [facility] Last Admin: 02/07/18 08:24 Dose: Not Given Multi-Ingred Cream/Lotion/Oil/Oint (Zinc Oxide) 0 gm TOP QID PRN PRN Reason: Rash Multivitamins/Minerals (Thera M Plus) 1 tab PO DAILY [facility] Last Admin: 02/07/18 08:19 Dose: 1 tab Omeprazole (Omeprazole) 20 mg PO DAILY@0700 [facility] Last Admin: 02/07/18 06:04 Dose: 20 mg Polyethylene Glycol (Miralax) 17 gm PO DAILY [facility] Last Admin: 02/07/18 08:26 Dose: Not Given Senna/Docusate Sodium (Senna Plus) 2 tab PO BID [facility] Last Admin: 02/07/18 08:21 Dose: Not Given Discontinued Medications Carbamazepine (Tegretol Xr) 200 mg PO BID [facility] Lactated Ringer's (Ringers, Lactated) 1,000 mls @ 100 mls/hr IV ASDIRECTED [facility] Last Admin: 02/07/18 02:47 Dose: 100 mls/hr Levofloxacin/Dextrose 500 mg/ (Premix) 100 mls @ 100 mls/hr IV Q24H [facility] Last Admin: 02/05/18 18:40 Dose: 100 mls/hr Levothyroxine Sodium (Synthroid) 50 mcg PO DAILY [facility] Last Admin: 02/06/18 08:03 Dose: 50 mcg Omeprazole (Omeprazole) 20 mg PO DAILY [facility] Last Admin: 02/06/18 08:05 Dose: 20 mg - Problem List Review Problem List Initiated/Reviewed/Updated: Yes
[2018-02-07] MEDS: Levofloxacin/Dextrose 5%-Water 250 MG in Premix Bag 1 BAG IV SCH (15:51)
[2018-02-07] MEDS ORDERED: Sodium Chloride 0.9% 10 ML Syringe IV PRN (15:52)
[2018-02-07] MEDS: Folic Acid 1 MG Tab PO SCH (20:15)
[2018-02-08] MEDS: Levothyroxine 50 MCG Tab PO SCH (06:28)
[2018-02-08] MEDS: Omeprazole 20 MG Cap.CR PO SCH (06:28)
[2018-02-08] MEDS: Magnesium Oxide 400 MG Tab PO SCH (07:51)
[2018-02-08] MEDS: Gabapentin 400 MG Cap PO SCH ×3 (07:51→19:39)
[2018-02-08] MEDS: Multivitamins with Iron/Calcium/Folic Acid/Minerals Tab PO SCH (07:52)
[2018-02-08] MEDS: Ferrous Sulfate 325 MG Tab PO SCH (07:52)
[2018-02-08] MEDS: Calcium Carbonate/Vitamin D3 1250 MG-200 Unit Tab PO SCH ×2 (07:52→19:39)
[2018-02-08] MEDS: Ascorbic Acid 500 MG Tab PO SCH (07:54)
[2018-02-08] MEDS: carBAMazepine 100 MG Cap.ER PO SCH ×2 (07:54→19:39)
[2018-02-08] MEDS: Acetaminophen 500 MG Tab PO SCH ×2 (07:56→19:39)
[2018-02-08] MEDS: Losartan 50 MG Tab PO SCH (07:57)
[2018-02-08] MEDS: Gabapentin 100 MG Cap PO SCH ×3 (07:57→19:39)
[2018-02-08] MEDS: Cyclobenzaprine 10 MG Tab PO SCH (07:58)
[2018-02-08] MEDS: Enoxaparin 30 MG/0.3 ML Syringe SUBCUT SCH (07:59)
[2018-02-08] MEDS: Menthol/Methyl Salicylate 85 GM Tube TOP SCH ×2 (07:59→19:40)
[2018-02-08] MEDS: Polyethylene Glycol 3350 Powder 17 GM Packet PO SCH (07:59)
[2018-02-08] MEDS: Dextran 70/Hypromellose/PF Ophth Soln 0.9 ML UD EYEBOTH SCH ×2 (07:59→19:42)
[2018-02-08] MEDS ORDERED: Levofloxacin 250 MG Tab PO SCH (10:00)
--- NOTE | 2018-02-08 17:36 | PCM.PN ---
- General Info Date of Service: 02/08/18 Admission Dx/Problem (Free Text): History: She remains afebrile, alert, with good BP. She is still on Levaquin IV but is taking food and fluid well. Her IV was changed to saline lock yesterday. Exam: -Lung sounds clear, no respiratory distress -Heart sounds normal and regular -Alert and smiling Impression: -Urosepsis, can tolerate oral antibiotic -Others as in H&P Plan: -Switch to oral Levaquin today -Anticipate D/C back to [facility] tomorrow - Patient Data Vitals - Most Recent: Last Vital Signs Temp 35.9 C 02/08/18 17:12 Pulse 88 02/08/18 17:12 Resp 12 02/08/18 17:12 BP 128/64 02/08/18 17:12 Pulse Ox 97 02/08/18 17:12 Weight - Most Recent: 65.227 kg I&O - Last 24 Hours: Intake & Output 02/08/18 02/08/18 02/08/18 06:59 14:59 22:59 Intake Total 600 320 Output Total 100 Balance 600 320 -100 David Results Last 24 Hours: Microbiology 02/06/18 14:25 Urine Culture - Preliminary Urine, Catheterized Staphylococcus Coagulase Neg Alpha Hemolytic Strep Alpha Hemolytic Strep#2 02/05/18 18:04 Aerobic Blood Culture - Preliminary Blood - Venous - Lab Draw NO GROWTH AFTER 2 DAYS Anaerobic Blood Culture - Preliminary NO GROWTH AFTER 2 DAYS 02/05/18 17:46 Aerobic Blood Culture - Preliminary Blood - Venous NO GROWTH AFTER 2 DAYS Anaerobic Blood Culture - Final Med Orders - Current: Current Medications Acetaminophen (Tylenol Extra Strength) 500 mg PO BID [facility] Last Admin: 02/08/18 07:56 Dose: 500 mg Acetaminophen (Tylenol) 325 mg PO Q4HR PRN PRN Reason: Pain/Fever Al Hydroxide/Mg Hydroxide (Mag-Al Plus) 10 ml PO DAILY PRN PRN Reason: reflux/upset stomach Artificial Tears (Tears Naturale Free) 1 each EYEBOTH BID [facility] Last Admin: 02/08/18 07:59 Dose: 1 each Ascorbic Acid (Vitamin C) 250 mg PO DAILY [facility] Last Admin: 02/08/18 07:54 Dose: 250 mg Bisacodyl (Dulcolax) 10 mg RECTAL DAILY PRN PRN Reason: Constipation Bisacodyl (Dulcolax) 5 mg PO DAILY PRN PRN Reason: Constipation Calcium Carbonate (Calcium Carbonate/Vitamin D 1250 Mg-200 Unit) 1 tab PO BID [facility] Last Admin: 02/08/18 07:52 Dose: 1 tab Carbamazepine (Tegretol Xr) 500 mg PO BID [facility] Last Admin: 02/08/18 07:54 Dose: 500 mg Cyclobenzaprine HCl (Flexeril) 5 mg PO DAILY [facility] Last Admin: 02/08/18 07:58 Dose: 5 mg Cyclobenzaprine HCl (Flexeril) 5 mg PO Q8HR PRN PRN Reason: Muscle Spasm Enoxaparin Sodium (Lovenox) 30 mg SUBCUT DAILY [facility] Last Admin: 02/08/18 07:59 Dose: 30 mg Ferrous Sulfate (Ferrous Sulfate) 325 mg PO DAILY [facility] Last Admin: 02/08/18 07:52 Dose: 325 mg Folic Acid (Folic Acid) 1 mg PO BEDTIME [facility] Last Admin: 02/07/18 20:15 Dose: 1 mg Gabapentin (Neurontin) 200 mg PO TID [facility] Last Admin: 02/08/18 11:19 Dose: 200 mg Gabapentin (Neurontin) 800 mg PO TID [facility] Last Admin: 02/08/18 11:20 Dose: 800 mg Guaifenesin/Dextromethorphan (Robitussin Dm) 10 ml PO Q4H PRN PRN Reason: cough and chest congestion Levofloxacin (Levaquin) 250 mg PO Q24H [facility] Last Admin: 02/08/18 11:19 Dose: 250 mg Levothyroxine Sodium (Synthroid) 50 mcg PO DAILY@0700 [facility] Last Admin: 02/08/18 06:28 Dose: 50 mcg Losartan Potassium (Cozaar) 50 mg PO DAILY [facility] Last Admin: 02/08/18 07:57 Dose: 50 mg Magnesium Oxide (Magnesium Oxide) 400 mg PO DAILY [facility] Last Admin: 02/08/18 07:51 Dose: 400 mg Methyl Salicylate (Icy Hot Cream) 0 gm TOP BID [facility] Last Admin: 02/08/18 07:59 Dose: 1 applic Multi-Ingred Cream/Lotion/Oil/Oint (Zinc Oxide) 0 gm TOP QID PRN PRN Reason: Rash Multivitamins/Minerals (Thera M Plus) 1 tab PO DAILY [facility] Last Admin: 02/08/18 07:52 Dose: 1 tab Omeprazole (Omeprazole) 20 mg PO DAILY@0700 [facility] Last Admin: 02/08/18 06:28 Dose: 20 mg Polyethylene Glycol (Miralax) 17 gm PO DAILY [facility] Last Admin: 02/08/18 07:59 Dose: 17 gm Senna/Docusate Sodium (Senna Plus) 2 tab PO BID [facility] Last Admin: 02/08/18 07:56 Dose: 2 tab Sodium Chloride (Saline Flush) 10 ml IV ASDIRECTED PRN PRN Reason: Keep Vein Open Last Admin: 02/07/18 15:50 Dose: 10 ml Discontinued Medications Carbamazepine (Tegretol Xr) 200 mg PO BID [facility] Lactated Ringer's (Ringers, Lactated) 1,000 mls @ 100 mls/hr IV ASDIRECTED [facility] Last Admin: 02/07/18 02:47 Dose: 100 mls/hr Levofloxacin/Dextrose 500 mg/ (Premix) 100 mls @ 100 mls/hr IV Q24H [facility] Last Admin: 02/05/18 18:40 Dose: 100 mls/hr Levofloxacin/Dextrose 250 mg/ (Premix) 50 mls @ 50 mls/hr IV Q24H [facility] Last Admin: 02/07/18 15:51 Dose: 50 mls/hr Levothyroxine Sodium (Synthroid) 50 mcg PO DAILY [facility] Last Admin: 02/06/18 08:03 Dose: 50 mcg Omeprazole (Omeprazole) 20 mg PO DAILY [facility] Last Admin: 02/06/18 08:05 Dose: 20 mg - Problem List Review Problem List Initiated/Reviewed/Updated: Yes - My Orders Last 24 Hours: My Active Orders 02/08/18 09:42 Communication Order [RC] ROUTINE 02/08/18 10:00 Levofloxacin [Levaquin] 250 mg PO Q24H
[2018-02-08] MEDS: Folic Acid 1 MG Tab PO SCH (19:39)
[2018-02-09] MEDS: Omeprazole 20 MG Cap.CR PO SCH (06:35)
[2018-02-09] MEDS: Levothyroxine 50 MCG Tab PO SCH (06:35)
[2018-02-09] MEDS: carBAMazepine 100 MG Cap.ER PO SCH (08:20)
[2018-02-09] MEDS: Gabapentin 100 MG Cap PO SCH (08:20)
[2018-02-09] MEDS: Calcium Carbonate/Vitamin D3 1250 MG-200 Unit Tab PO SCH (08:21)
[2018-02-09] MEDS: Multivitamins with Iron/Calcium/Folic Acid/Minerals Tab PO SCH (08:21)
[2018-02-09] MEDS: Magnesium Oxide 400 MG Tab PO SCH (08:21)
[2018-02-09] MEDS: Ferrous Sulfate 325 MG Tab PO SCH (08:21)
[2018-02-09] MEDS: Acetaminophen 500 MG Tab PO SCH (08:22)
[2018-02-09] MEDS: Gabapentin 400 MG Cap PO SCH (08:23)
[2018-02-09] MEDS: Cyclobenzaprine 10 MG Tab PO SCH (08:24)
[2018-02-09] MEDS: Polyethylene Glycol 3350 Powder 17 GM Packet PO SCH (08:25)
[2018-02-09] MEDS: Losartan 50 MG Tab PO SCH (08:25)
[2018-02-09] MEDS: Ascorbic Acid 500 MG Tab PO SCH (08:25)
[2018-02-09] MEDS: Menthol/Methyl Salicylate 85 GM Tube TOP SCH (08:26)
[2018-02-09] MEDS: Dextran 70/Hypromellose/PF Ophth Soln 0.9 ML UD EYEBOTH SCH (08:27)
[2018-02-09 08:28] VITALS: BP 106/68
[2018-02-09] MEDS: Enoxaparin 30 MG/0.3 ML Syringe SUBCUT SCH (08:46)
--- NOTE | 2018-02-10 01:29 | DISCH ---
PRIMARY DISCHARGE DIAGNOSES: 1. Systemic inflammatory response syndrome related to a urinary tract infection with multiple organisms, recurrent. 2. Tachycardia and dehydration due to hypovolemia from poor oral intake due to illness. 3. History of seizure disorder with seizure med levels in range and no evidence of seizure during her stay. Neurontin level though is pending on discharge. Carbamazepine was 9.8. 4. Chronic anemia. Hemoglobin 9.3 on discharge. Her baseline hemoglobin has been between 9 and 10. She does have a history of iron deficiency and is on replacement. 5. Essential hypertension. 6. Hypothyroidism. 7. Urge incontinence. No longer on Ditropan due to urinary tract infections. 8. Cerebral palsy with right hemiparesis. 9. Dementia with cognitive dysfunction. 10.Osteoporosis. 11.Prediabetes. REASON FOR ADMISSION: On the date of admission, this 77-year-old did come into the clinic due to feeling unwell. She had some loose bowel movements. She was tested negative for C. diff. She was mildly hypotensive with blood pressures under 100 systolic and heart rates up over 115. Therefore, she was transferred over to [facility] and placed on IV fluids. She had a UA done which eventually did return positive and grew mixed microflora and multiple different organisms including coagulase-negative Staph. She had a previous UTI earlier this month that was treated with Cipro. Culture also grew mixed microflora but in December, she had 3 days of Cipro again for enterococcus. Prior to that, it had been over 9 months since her UTIs. She otherwise currently declines any burning. No abdominal pain. She has not have any coughing. No fevers in the hospital. Her chest x-ray was not showing pneumonia. She seemed to improve significantly after just getting IV fluids. She was treated with Lovenox during her stay to prevent DVTs. She had no further episodes of diarrhea. She was having formed stools. She was eating and drinking okay in the hospital 90% to 100% of her meals. DISCHARGE PLANS AND INSTRUCTIONS: She is going back to [facility]. She will have 1 more dose of Levaquin to take to complete a full 5 days. She did receive IV Levaquin and yesterday was changed to oral. She will have a CBC, CMP, ferritin, and magnesium in 2 weeks. She will be started on potassium 20 mEq daily on discharge. She will stop the magnesium and vitamin C supplements. Otherwise, she did have a creatinine which was up to 1.4 on admission, it was down to 1.2. She remained on her losartan for blood pressure during her stay. Her creatinine was 0.07 back in early December. DISCHARGE PHYSICAL EXAMINATION: Vital Signs: Temperature of 98.3, pulse 86, blood pressure 106/68 previous 139/64, respiratory rate 19, O2 of 94% on room air. General: She is in no acute distress. Heart: Regular rate and rhythm. Lungs: Lung sounds are clear to auscultation bilaterally without crackles or wheezes. Abdomen: Nondistended, nontender. Extremities: Warm and dry. No edema. Mental Status: She is alert. She is aware she is in the hospital. She answers questions appropriately with yes or no. MKA: 02/09/2018 12:22:52 MODL: 02/10/2018 01:22:15 /[id number]
== END 2018-02-09 09:55 | DRG 690 ==
LOC: VM.MS 15:56
PROVIDERS: ADMIT Family Medicine; ATTEND Family Medicine
DX: N39.0 Urinary tract infection, site not specified (principal); R65.10 Systemic inflammatory response syndrome (SIRS) of non-infectious origin without acute organ dysfunction; E86.0 Dehydration; G40.909 Epilepsy, unspecified, not intractable, without status epilepticus; I10 Essential (primary) hypertension; E03.9 Hypothyroidism, unspecified; M81.0 Age-related osteoporosis without current pathological fracture; F03.90 Unspecified dementia, unspecified severity, without behavioral disturbance, psychotic disturbance, mood disturbance, and anxiety; F79 Unspecified intellectual disabilities; Z88.0 Allergy status to penicillin; Z88.1 Allergy status to other antibiotic agents; Z88.2 Allergy status to sulfonamides; Z88.8 Allergy status to other drugs, medicaments and biological substances; Z79.899 Other long term (current) drug therapy; N39.41 Urge incontinence; D64.9 Anemia, unspecified; G89.29 Other chronic pain; K59.00 Constipation, unspecified; G80.8 Other cerebral palsy; R73.03 Prediabetes
CPT/HCPCS: 36415; 71045; 80048; 80053; 80156; 80171; 81001; 83605; 83735; 84443; 85025; 86140; 87040; 87086; 87493; 93005; 94760; 97161-GP; A9270-GY; J1650; J1956; J7050; J7120

== ENCOUNTER 2018-02-20 11:38 | Emergency (ER) | payer MEDICARE, MEDICAID ==
[2018-02-20] MEDS ORDERED: Sodium Chloride 0.9% 10 ML Syringe FLUSH PRN (11:44)
[2018-02-20] MEDS ORDERED: Sodium Chloride 0.9% 1,000 ML IV ONE (11:45)
--- NOTE | 2018-02-20 12:06 | EDM.PDOC ---
ED HPI GENERAL MEDICAL PROBLEM - General Chief Complaint: General Stated Complaint: CODE GREEN Time Seen by Provider: 02/20/18 11:38 Source of Information: Reports: Other (caregiver from [facility]) History Limitations: Reports: Altered Mental Status - History of Present Illness INITIAL COMMENTS - FREE TEXT/NARRATIVE: Patient was taken over to the clinic for new onset of facial drooping and a history of nosebleed this morning. Patient was wheeled from the clinic over to the emergency department right away. Last known well time according to staff at the [facility] was at 1045 this a.m. when they were putting her in the bath they noticed that she began to have increased facial droop on the right side patient does have a history of a stroke greater than a year ago with significant deficits on the right side. She is unable to move the right hand independently normally or grasps things normally. Also has an orthotic on her right lower extremity and needs assistance to get up out of the wheelchair. However[facility] an increase of the facial drooping above the baseline on the right side of her face also severe twitching of her right arm muscles.Patient is also slower to respond than she normally is at her baseline mentation. Onset: Today, Sudden - Related Data Allergies Allergy/AdvReac Type Severity Reaction Status Date / Time erythromycin base Allergy cannot Verified 02/05/18 16:45 [Erythromycin Base] remember] hydrochlorothiazide Allergy Cannot Verified 02/05/18 16:45 Remember Penicillins Allergy Cannot Verified 02/05/18 16:45 Remember Sulfa (Sulfonamide Allergy Cannot Verified 02/05/18 16:45 Antibiotics) Remember trimethoprim Allergy Cannot Verified 02/05/18 16:45 Remember Home Meds: Home Meds Acetaminophen [Acetaminophen Extra Strength] 500 mg PO BID 04/02/14 [History] Folic Acid 1 mg PO BEDTIME 04/02/14 [History] Gabapentin [Neurontin] 800 mg PO TID 04/02/14 [History] Levothyroxine [Synthroid] 50 mcg PO DAILY 04/02/14 [History] Losartan [Cozaar] 50 mg PO DAILY 04/02/14 [History] carBAMazepine [TEGretol XR] 200 mg PO BID 04/02/14 [History] Acetaminophen [Tylenol] 325 mg PO Q4HR PRN 09/28/14 [History] Bisacodyl [Dulcolax] 5 mg PO DAILY PRN 09/28/14 [History] Magnesium 250 mg PO DAILY 06/30/16 [History] Polyethylene Glycol 3350 [MiraLAX] 17 gm PO DAILY 06/30/16 [History] Trolamine Salicylate/Aloe Vera [Aspercreme 10%] 1 gm TOP BID 06/30/16 [History] Bisacodyl [Biscolax] 10 mg RC DAILY PRN 12/23/16 [History] Cyclobenzaprine [Flexeril] 5 mg PO DAILY 12/23/16 [History] Cyclobenzaprine [Flexeril] 5 mg PO Q8HR PRN 12/23/16 [History] Gabapentin [Neurontin] 200 mg PO TID 12/23/16 [History] Polyvinyl Alcohol/Povidone [Hm Artificial Tears Eye Drops] 1 drop EYEBOTH BID [History] Omeprazole 20 mg PO DAILY #30 cap.cr 02/08/17 [Rx] Ferrous Gluconate 324 mg PO DAILY 02/05/18 [History] Mag Hydrox/Al Hydrox/Simeth [Alum-Mag Hydroxide-Simeth Liq] 10 ml PO DAILY PRN 02/05/18 [History] Sennosides/Docusate Sodium [Senna Plus Tablet] 2 tab PO BID 02/05/18 [History] Zinc Oxide [Desitin Creamy Diaper Rash Crm] 1 applic TP DAILY PRN 02/05/18 [ History] guaiFENesin/Dextromethorphan [Tussin Dm Syrup] 10 ml PO Q4H PRN 02/05/18 [ History] Calcium Citrate/Vitamin D3 [Calcitrate + Vit D Cap (315 MG/250 UNITS)] 1 tab PO BID 02/06/18 [History] Cranberry Fruit Extract [Cranberry] 425 mg PO TID 02/06/18 [History] carBAMazepine [TEGretol XR] 300 mg PO BID 02/06/18 [History] Levofloxacin [Levaquin] 250 mg PO Q24H #1 tablet 02/09/18 [Rx] Past Medical History HEENT History: Reports: Other (See Below) Other HEENT History: Dry Eyes Cardiovascular History: Reports: Hypertension Respiratory History: Reports: None Gastrointestinal History: Reports: Chronic Constipation, GERD Genitourinary History: Reports: Urinary Incontinence, UTI, Recurrent TOOL POLISHER History: 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 Flaccid Hemiplegia affecting right dominant side Neurological History: Reports: Cerebral Palsy, Seizure, Other (See Below) Other Neuro History: Aphasia (following unspecified Cerebrovascular Disease), flaccid hemiplegia affecting right dominant side, localization-related symptomatic epilepsy and epileptic syndromes with complex partial seizures, not intractable, without status epilepticus Psychiatric History: Reports: Other (See Below) Other Psychiatric History: Unspecified Dementia Endocrine/Metabolic History: Reports: Hypothyroidism, Osteoporosis Hematologic History: Reports: Anemia Dermatologic History: Reports: Eczema, Other (See Below) Other Dermatologic History: contact dermatitis - Infectious Disease History Infectious Disease History: Reports: MRSA Other Infectious Disease History: hx of mrsa and ltc isolation - Past Surgical History HEENT Surgical History: Reports: None Cardiovascular Surgical History: Reports: None Oncologic Surgical History: Reports: Biopsy of Breast Social & Family History - Family History Family Medical History: Noncontributory Cardiac: Reports: None Respiratory: Reports: None GI: Reports: None Musculoskeletal: Reports: Osteoporosis Neurological: Reports: Cerebral Palsy, Seizure Endocrine/Metabolic: Reports: Osteoporosis Hematologic: Reports: Anemia Dermatologic: Reports: Eczema Oncologic: Reports: None - Tobacco Use Smoking Status *Q: Never Smoker Second Hand Smoke Exposure: No - Caffeine Use Caffeine Use: Reports: None - Alcohol Use Days Per Week of Alcohol Use: 0 - Recreational Drug Use Recreational Drug Use: No ED ROS GENERAL - Review of Systems Review Of Systems: See Below Constitutional: Reports: Weakness HEENT: Reports: Nosebleed (this am controlled prior to arrival ) Respiratory: Reports: No Symptoms Cardiovascular: Reports: No Symptoms Musculoskeletal: Reports: No Symptoms Skin: Reports: No Symptoms Neurological: Reports: Seizure, Tremors, Trouble Speaking, Weakness, Change in Speech, Gait Disturbance Psychiatric: Reports: No Symptoms Immunologic: Reports: No Symptoms ED EXAM, NEURO - Physical Exam Exam: See Below Exam Limited By: Altered Mental Status General Appearance: Lethargic Eye Exam: Bilateral Eye: EOMI, PERRL Nose: Normal Inspection, Nasal Drainage Neck: Normal Inspection, Supple Respiratory/Chest: No Respiratory Distress, Lungs Clear, Normal Breath Sounds, No Accessory Muscle Use Cardiovascular: Normal Peripheral Pulses, Regular Rate, Rhythm, No Edema GI/Abdominal: Normal Bowel Sounds, Soft, Non-Tender, No Distention Neurological: Abnormal Gait, Ataxia, Abnormal Sensation, Abnormal Light Touch, Tremor (moderate upper right arm movement. ), Difficulty Walking (baseline difficulty uses assistive devices ), Other (facial droop right side- does have history ). No: No Response to Pain DTR: 2+: Bicep (R), Tricep (R), 3+: Bicep (L), Tricep (L) Extremities: Normal Inspection Psychiatric: Normal Affect Skin Exam: Warm, Dry, Intact EKG INTERPRETATION Rhythm: Other (sinus tach) Course - Orders/Labs/Meds Orders: Active Orders 24 hr Category Date Time Status Head wo Cont [CT] Stat Exams 02/20/18 11:42 Taken UA W/MICROSCOPIC [URIN] Stat Lab 02/20/18 12:26 Ordered Sodium Chloride 0.9% [Saline Flush] Med 02/20/18 11:44 Active 10 ml FLUSH ASDIRECTED PRN Peripheral IV Insertion Adult [OM.PC] Routine Oth 02/20/18 11:44 Ordered Medication Orders Sodium Chloride (Saline Flush) 10 ml FLUSH ASDIRECTED PRN PRN Reason: Keep Vein Open Labs: Laboratory Tests 02/20/18 02/20/18 02/20/18 Range/Units 11:50 11:54 12:01 WBC 9.8 (4.0-10.0) x10^3/uL RBC 3.39 L (4.00-5.50) x10^6/uL Hgb 10.9 L D (12.0-16.0) g/dL Hct 33.7 (33.0-47.0) % MCV 99.4 H (78.0-93.0) fL MCH 32.2 H (26.0-32.0) pg MCHC 32.3 (32.0-36.0) g/dL RDW Coeff of Gabrielle 14.2 (10.0-15.0) % Plt Count 401 H (130-400) x10^3/uL Neut % (Auto) 82.0 H (50.0-80.0) % Lymph % (Auto) 8.0 L (25.0-50.0) % [place] % (Auto) 8.5 (2.0-11.0) % Eos % (Auto) 1.3 (0.0-4.0) % Baso % (Auto) 0.2 (0.2-1.2) % PT 9.9 (9.8-11.8) SEC INR 0.9 L (2.0-3.5) Sodium (136-145) mmol/L Potassium (3.5-5.1) mmol/L Chloride (98-107) mmol/L Carbon Dioxide (21-32) mmol/L BUN (7-18) mg/dL Creatinine (0.55-1.02) mg/dL Est Cr Clr Drug Dosing Estimated GFR (MDRD) Glucose (74-106) mg/dL POC Glucose 113 H (74-106) mg/dL Calcium (8.5-10.1) mg/dL Corrected Calcium (8.5-10.1) mg/dL Total Bilirubin (0.2-1.0) mg/dL AST (15-37) U/L ALT (14-59) U/L Alkaline Phosphatase (46-116) U/L POC Troponin I (0.00-0.08) ng/mL Total Protein (6.4-8.2) g/dL Albumin (3.4-5.0) g/dL Globulin Albumin/Globulin Ratio Urine Color (YELLOW) Urine Appearance (CLEAR) Urine pH (5.0-8.0) Ur Specific [place] Urine Protein (NEGATIVE) mg/dL Urine Glucose (UA) (NEGATIVE) mg/dL Urine Ketones (NEGATIVE) mg/dL Urine Occult Blood (NEGATIVE) Urine Nitrite (NEGATIVE) Urine Bilirubin (NEGATIVE) Urine Urobilinogen (0.2) EU/dL Ur Leukocyte Esterase (NEGATIVE) Urine RBC (NOT SEEN) /HPF Urine WBC (NOT SEEN) /HPF Ur Squamous Epith Cells (NEGATIVE) /HPF Urine Bacteria (NEGATIVE) /HPF Urine Mucus (NEGATIVE) /LPF 02/20/18 02/20/18 02/20/18 Range/Units 12:01 12:05 12:26 WBC (4.0-10.0) x10^3/uL RBC (4.00-5.50) x10^6/uL Hgb (12.0-16.0) g/dL Hct (33.0-47.0) % MCV (78.0-93.0) fL MCH (26.0-32.0) pg MCHC (32.0-36.0) g/dL RDW Coeff of Gabrielle (10.0-15.0) % Plt Count (130-400) x10^3/uL Neut % (Auto) (50.0-80.0) % Lymph % (Auto) (25.0-50.0) % [place] % (Auto) (2.0-11.0) % Eos % (Auto) (0.0-4.0) % Baso % (Auto) (0.2-1.2) % PT (9.8-11.8) SEC INR (2.0-3.5) Sodium 142 (136-145) mmol/L Potassium 4.6 (3.5-5.1) mmol/L Chloride 106 (98-107) mmol/L Carbon Dioxide 29 (21-32) mmol/L BUN 27 H (7-18) mg/dL Creatinine 1.4 H (0.55-1.02) mg/dL Est Cr Clr Drug Dosing TNP Estimated GFR (MDRD) 37 Glucose 110 H (74-106) mg/dL POC Glucose (74-106) mg/dL Calcium 10.4 H (8.5-10.1) mg/dL Corrected Calcium 10.96 H (8.5-10.1) mg/dL Total Bilirubin 0.3 (0.2-1.0) mg/dL AST 15 (15-37) U/L ALT 17 (14-59) U/L Alkaline Phosphatase 123 H (46-116) U/L POC Troponin I 0.00 (0.00-0.08) ng/mL Total Protein 8.4 H (6.4-8.2) g/dL Albumin 3.3 L (3.4-5.0) g/dL Globulin 5.1 Albumin/Globulin Ratio 0.65 Urine Color Yellow (YELLOW) Urine Appearance Turbid H (CLEAR) Urine pH 8.5 H (5.0-8.0) Ur Specific [place] 1.020 Urine Protein >=300 H (NEGATIVE) mg/dL Urine Glucose (UA) Negative (NEGATIVE) mg/dL Urine Ketones Negative (NEGATIVE) mg/dL Urine Occult Blood Moderate H (NEGATIVE) Urine Nitrite Negative (NEGATIVE) Urine Bilirubin Negative (NEGATIVE) Urine Urobilinogen 0.2 (0.2) EU/dL Ur Leukocyte Esterase Moderate H (NEGATIVE) Urine RBC 30-40 H (NOT SEEN) /HPF Urine WBC 50-75 H (NOT SEEN) /HPF Ur Squamous Epith Cells Few H (NEGATIVE) /HPF Urine Bacteria Many H (NEGATIVE) /HPF Urine Mucus Few H (NEGATIVE) /LPF Meds: Medications Generic Name Dose Route Start Last Admin Trade Name Howard PRN Reason Stop Dose Admin Sodium Chloride 10 ml 02/20/18 11:44 Saline Flush FLUSH ASDIRECTED PRN Keep Vein Open Discontinued Medications Generic Name Dose Route Start Last Admin Trade Name Freq PRN Reason Stop Dose Admin Levetiracetam 1,000 mg/ Sodium 110 mls @ 400 mls/hr 02/20/18 12:48 Chloride IV 02/20/18 13:02 ONETIME ONE Departure - Departure Time of Disposition: 14:25 Disposition: DC/Tfer to Acute Hospital 02 Condition: Good Clinical Impression: Facial droop, Weakness UTI (urinary tract infection) Qualifiers: Urinary tract infection type: site unspecified Hematuria presence: with hematuria Qualified Code(s): N39.0 - Urinary tract infection, site not specified ; R31.9 - Hematuria, unspecified - Discharge Information Referrals: Ivy Olson DO [Primary Care Provider] - Forms: ED Department Discharge, Interfacility Transfer DINO - My Orders Last 24 Hours: My Active Orders 02/20/18 11:42 Head wo Cont [CT] Stat 02/20/18 11:44 Sodium Chloride 0.9% [Saline Flush] 10 ml FLUSH ASDIRECTED PRN Peripheral IV Insertion Adult [OM.PC] Routine 02/20/18 12:26 UA W/MICROSCOPIC [URIN] Stat - Assessment/Plan Last 24 Hours: My Active Orders 02/20/18 11:42 Head wo Cont [CT] Stat 02/20/18 11:44 Sodium Chloride 0.9% [Saline Flush] 10 ml FLUSH ASDIRECTED PRN Peripheral IV Insertion Adult [OM.PC] Routine 02/20/18 12:26 UA W/MICROSCOPIC [URIN] Stat Assessment:: 1. new onset facial droop 2. right arm tremor increase 3. Decrease mobility of right lower extremity 4. Increase length of response when answering question Plan: 1. Stroke code called 2. CT head complete. results shared with family 3. IV insertion with fluids hanging 4. Consultation with Neurology [place] after CT results. Recommends CTA-head/ neck. We are unable to do this test here. Patient is advised to be transported to a tertiary center with more capabilities 5. Neurology requested 1 g of Keppra be hung prior to patient's departure 6. Patient is stabilized prior to transport blood pressure 129/74 heart rate was 88 respirations were 16. Assessment findings remain the same NIH scale remains at a 13 fast ED score was a 4. Patient appears to be resting comfortably denies any pain is alert and oriented and willing to be transferred to [place] for further evaluation and management 7. Sister was contacted Missy- next of kin, who is an [place], phone numbers are on the face sheet.
[2018-02-20 12:31] LABS: CHLORIDE,CL 106 mmol/L (98-107); SODIUM,NA 142 mmol/L (136-145)
[2018-02-20] MEDS ORDERED: levETIRAcetam 1,000 MG in Sodium Chloride 0.9% 100 ML IV ONE (12:48)
== END 2018-02-20 13:25 | disposition short-term general hospital (02) ==
LOC: VM.ED 11:38
DX: R29.810 Facial weakness (principal); R25.1 Tremor, unspecified; N39.0 Urinary tract infection, site not specified; I10 Essential (primary) hypertension; E03.9 Hypothyroidism, unspecified; Z88.1 Allergy status to other antibiotic agents; Z88.0 Allergy status to penicillin; Z88.8 Allergy status to other drugs, medicaments and biological substances; Z88.2 Allergy status to sulfonamides; Z79.899 Other long term (current) drug therapy
CPT/HCPCS: 36415; 70450; 80053; 81001; 82962; 84484; 85025; 85610; 87086; 93005; 96361; 96374; 99285; J1953; J7030; J7050

== ENCOUNTER 2019-05-18 13:37 | Emergency (ER) | payer MEDICARE, MEDICAID ==
[2019-05-18] MEDS ORDERED: Sodium Chloride 0.9% 10 ML Syringe FLUSH PRN (13:55)
[2019-05-18] MEDS ORDERED: Sodium Chloride 0.9% 1,000 ML IV ONE (13:55)
[2019-05-18] MEDS ORDERED: cefTRIAXone 1 GM Vial IVPUSH ONE (13:56)
[2019-05-18] MEDS ORDERED: Ondansetron 4 MG/2 ML SDV IVPUSH ONE (14:16)
--- NOTE | 2019-05-18 14:28 | EDM.PDOC ---
ED HPI GENERAL MEDICAL PROBLEM - General Chief Complaint: General Stated Complaint: LETHARGIC, VOMITING, MILD TEMP Time Seen by Provider: 05/18/19 13:53 Source of Information: Reports: Patient History Limitations: Reports: No Limitations - History of Present Illness INITIAL COMMENTS - FREE TEXT/NARRATIVE: Patient is brought here from the [facility] center with complaints of nausea, lethargy , low grade temp. Was seen Friday by primary Dr. Ivy Olson and diagnosed with UTI. Started on macrobid which was resistant based on culture and switched to keflex. This was just started today. While seen on Friday, patient was also CT scanned due to recent fall. CT of head and cervical spine were negative for acute process. She does state she is nauseated today. Is drinking but not eating well. Patient does have history of cerebral palsy, with complicating factors of a prior CVA. Significant right sided deficits as well as deficits resulting from her disability. She is able to provide HPI, but does require patience for her responses. Denies ches pain, headache, SOB, no abdominal pain. Is nauseated with 1 bout of emesis at around 12 noon today. No fever or chills. She does have staff from [facility] with her today. Arrives in wheelchair. Is incontinent of urine and this is normal. No diarrhea. No reports of blood to urine or stool. Onset: Gradual Duration: Intermittent Location: Reports: Generalized - Related Data Allergies Allergy/AdvReac Type Severity Reaction Status Date / Time erythromycin base Allergy cannot Verified 02/05/18 16:45 [Erythromycin Base] remember] hydrochlorothiazide Allergy Cannot Verified 02/05/18 16:45 Remember Penicillins Allergy Cannot Verified 02/05/18 16:45 Remember Sulfa (Sulfonamide Allergy Cannot Verified 02/05/18 16:45 Antibiotics) Remember trimethoprim Allergy Cannot Verified 02/05/18 16:45 Remember Home Meds: Home Meds Acetaminophen [Acetaminophen Extra Strength] 500 mg PO BID 04/02/14 [History] Folic Acid 1 mg PO BEDTIME 04/02/14 [History] Gabapentin [Neurontin] 800 mg PO TID 04/02/14 [History] Levothyroxine [Synthroid] 50 mcg PO DAILY 04/02/14 [History] Losartan [Cozaar] 50 mg PO DAILY 04/02/14 [History] carBAMazepine [TEGretol XR] 200 mg PO BID 04/02/14 [History] Acetaminophen [Tylenol] 325 mg PO Q4HR PRN 09/28/14 [History] Bisacodyl [Dulcolax] 5 mg PO DAILY PRN 09/28/14 [History] Magnesium 250 mg PO DAILY 06/30/16 [History] Polyethylene Glycol 3350 [MiraLAX] 17 gm PO DAILY 06/30/16 [History] Trolamine Salicylate/Aloe Vera [Aspercreme 10%] 1 gm TOP BID 06/30/16 [History] Bisacodyl [Biscolax] 10 mg RC DAILY PRN 12/23/16 [History] Cyclobenzaprine [Flexeril] 5 mg PO DAILY 12/23/16 [History] Cyclobenzaprine [Flexeril] 5 mg PO Q8HR PRN 12/23/16 [History] Gabapentin [Neurontin] 200 mg PO TID 12/23/16 [History] Polyvinyl Alcohol/Povidone [Hm Artificial Tears Eye Drops] 1 drop EYEBOTH BID [History] Omeprazole 20 mg PO DAILY #30 cap.cr 02/08/17 [Rx] Ferrous Gluconate 324 mg PO DAILY 02/05/18 [History] Mag Hydrox/Al Hydrox/Simeth [Alum-Mag Hydroxide-Simeth Liq] 10 ml PO DAILY PRN 02/05/18 [History] Sennosides/Docusate Sodium [Senna Plus Tablet] 2 tab PO BID 02/05/18 [History] Zinc Oxide [Desitin Creamy Diaper Rash Crm] 1 applic TP DAILY PRN 02/05/18 [ History] guaiFENesin/Dextromethorphan [Tussin Dm Syrup] 10 ml PO Q4H PRN 02/05/18 [ History] Calcium Citrate/Vitamin D3 [Calcitrate + Vit D Cap (315 MG/250 UNITS)] 1 tab PO BID 02/06/18 [History] Cranberry Fruit Extract [Cranberry] 425 mg PO TID 02/06/18 [History] carBAMazepine [TEGretol XR] 300 mg PO BID 02/06/18 [History] levoFLOXacin [Levaquin] 250 mg PO Q24H #1 tablet 02/09/18 [Rx] Past Medical History HEENT History: Reports: Other (See Below) Other HEENT History: Dry Eyes Cardiovascular History: Reports: Hypertension Respiratory History: Reports: None Gastrointestinal History: Reports: Chronic Constipation, GERD Genitourinary History: Reports: Urinary Incontinence, UTI, Recurrent 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 Flaccid Hemiplegia affecting right dominant side Neurological History: Reports: Cerebral Palsy, Seizure, Other (See Below) Other Neuro History: Aphasia (following unspecified Cerebrovascular Disease), flaccid hemiplegia affecting right dominant side, localization-related symptomatic epilepsy and epileptic syndromes with complex partial seizures, not intractable, without status epilepticus Psychiatric History: Reports: Other (See Below) Other Psychiatric History: Unspecified Dementia Endocrine/Metabolic History: Reports: Hypothyroidism, Osteoporosis Hematologic History: Reports: Anemia Dermatologic History: Reports: Eczema, Other (See Below) Other Dermatologic History: contact dermatitis - Infectious Disease History Infectious Disease History: Reports: MRSA Other Infectious Disease History: hx of mrsa and ltc isolation - Past Surgical History HEENT Surgical History: Reports: None Cardiovascular Surgical History: Reports: None Oncologic Surgical History: Reports: Biopsy of Breast Social & Family History - Family History Family Medical History: Noncontributory Cardiac: Reports: None Respiratory: Reports: None GI: Reports: None Musculoskeletal: Reports: Osteoporosis Neurological: Reports: Cerebral Palsy, Seizure Endocrine/Metabolic: Reports: Osteoporosis Hematologic: Reports: Anemia Dermatologic: Reports: Eczema Oncologic: Reports: None - Caffeine Use Caffeine Use: Reports: None ED ROS GENERAL - Review of Systems Review Of Systems: See Below Constitutional: Reports: Weakness HEENT: Reports: No Symptoms Respiratory: Reports: No Symptoms Cardiovascular: Reports: No Symptoms Endocrine: Reports: No Symptoms GI/Abdominal: Reports: Nausea, Vomiting Musculoskeletal: Reports: No Symptoms Skin: Reports: No Symptoms Neurological: Reports: Weakness Psychiatric: Reports: No Symptoms Hematologic/Lymphatic: Reports: No Symptoms Immunologic: Reports: No Symptoms ED EXAM, GENERAL - Physical Exam Exam: See Below Exam Limited By: No Limitations General Appearance: Alert, WD/WN, No Apparent Distress Eye Exam: Bilateral Eye: EOMI, Normal Inspection, PERRL Ears: Normal TMs Nose: Normal Inspection, Normal Mucosa, No Blood Throat/Mouth: Normal Inspection, Normal Lips, Normal Teeth, Normal Gums, Normal Oropharynx, Normal Voice, No Airway Compromise, Other (oral mucosa seem dry) Head: Atraumatic, Normocephalic Neck: Normal Inspection, Supple, Non-Tender, Full Range of Motion Respiratory/Chest: No Respiratory Distress, Lungs Clear, Normal Breath Sounds, No Accessory Muscle Use, Chest Non-Tender Cardiovascular: Normal Peripheral Pulses, Regular Rate, Rhythm, No Edema, No Gallop, No JVD, No Murmur, No Rub Peripheral Pulses: 2+: Posterior Tibial (L), Posterior Tibial (R), Dorsalis Pedis (L), Dorsalis Pedis (R) GI/Abdominal: Normal Bowel Sounds, Soft, Non-Tender, No Organomegaly, No Distention, No Abnormal Bruit, No Mass Extremities: Normal Inspection, Normal Range of Motion, Non-Tender, Normal Capillary Refill, No Pedal Edema Neurological: Alert, Oriented, CN II-XII Intact, Normal Cognition, Normal Gait, Normal Reflexes, No Motor/Sensory Deficits Psychiatric: Normal Affect, Normal Mood Skin Exam: Wound/Incision (abrasion to right forehead from prior fall ) Lymphatic: No Adenopathy Course - Vital Signs Last Recorded V/S: Last Vital Signs Temp 36.5 C 05/18/19 13:40 Pulse 108 H 05/18/19 13:40 Resp 16 05/18/19 13:40 BP 117/83 05/18/19 13:40 Pulse Ox 96 05/18/19 13:40 - Orders/Labs/Meds Orders: Active Orders 24 hr Category Date Time Status Sodium Chloride 0.9% [Saline Flush] Med 05/18/19 13:55 Ordered 10 ml FLUSH ASDIRECTED PRN Saline Lock Insert [OM.PC] Routine Oth 05/18/19 13:55 Ordered Medication Orders Sodium Chloride (Saline Flush) 10 ml FLUSH ASDIRECTED PRN PRN Reason: Keep Vein Open Labs: Laboratory Tests 05/18/19 05/18/19 05/18/19 Range/Units 14:12 14:12 14:12 WBC 12.2 H (4.0-10.0) x10^3/uL RBC 3.53 L (4.00-5.50) x10^6/uL Hgb 11.0 L (12.0-16.0) g/dL Hct 34.6 (33.0-47.0) % MCV 98.0 H (78.0-93.0) fL MCH 31.2 (26.0-32.0) pg MCHC 31.8 L (32.0-36.0) g/dL RDW Coeff of Gabrielle 13.2 (10.0-15.0) % Plt Count 505 H D (130-400) x10^3/uL Neut % (Auto) 91.7 H (50.0-80.0) % Lymph % (Auto) 4.0 L (25.0-50.0) % [place] % (Auto) 3.4 (2.0-11.0) % Eos % (Auto) 0.7 (0.0-4.0) % Baso % (Auto) 0.2 (0.2-1.2) % Sodium 139 (136-145) mmol/L Potassium 5.2 H (3.5-5.1) mmol/L Chloride 102 (98-107) mmol/L Carbon Dioxide 24 (21-32) mmol/L Anion Gap 18.2 (10-20) mmol/L BUN 34 H (7-18) mg/dL Creatinine 1.5 H (0.55-1.02) mg/dL Est Cr Clr Drug Dosing TNP Estimated GFR (MDRD) 34 Glucose 139 H (74-106) mg/dL Lactic Acid 1.8 (0.4-2.0) mmol/L Calcium 10.2 H (8.5-10.1) mg/dL Corrected Calcium 11.08 H (8.5-10.1) mg/dL Magnesium 2.3 (1.8-2.4) mg/dL Total Bilirubin 0.4 (0.2-1.0) mg/dL AST 15 (15-37) U/L ALT 19 (14-59) U/L Alkaline Phosphatase 114 (46-116) U/L Total Protein 8.7 H (6.4-8.2) g/dL Albumin 2.9 L (3.4-5.0) g/dL Globulin 5.8 Albumin/Globulin Ratio 0.50 Meds: Medications Generic Name Dose Route Start Last Admin Trade Name Freq PRN Reason Stop Dose Admin Sodium Chloride 10 ml 05/18/19 13:55 Saline Flush FLUSH ASDIRECTED PRN Keep Vein Open Discontinued Medications Generic Name Dose Route Start Last Admin Trade Name Freq PRN Reason Stop Dose Admin Ceftriaxone Sodium 1 gm 06/25/19 13:56 05/18/19 14:15 Rocephin IVPUSH 05/18/19 13:57 1 gm STAT ONE Administration Sodium Chloride 1,000 mls @ 999 mls/hr 05/18/19 13:55 05/18/19 14:12 Normal Saline IV 05/18/19 14:55 999 mls/hr ONETIME ONE Administration Ondansetron HCl 4 mg 05/18/19 14:16 05/18/19 14:21 Zofran IVPUSH 05/18/19 14:17 4 mg ONETIME ONE Administration Departure - Departure Time of Disposition: 15:25 Disposition: DC/Tfer to SNF 03 Condition: Fair Clinical Impression: Dehydration - Discharge Information *PRESCRIPTION DRUG MONITORING PROGRAM REVIEWED*: Not Applicable *COPY OF PRESCRIPTION DRUG MONITORING REPORT IN PATIENT VILAM: Not Applicable Instructions: Dehydration, Elderly, [id number] Referrals: Ivy Olson, [Primary Care Provider] - Forms: ED Department Discharge Additional Instructions: Plan 1. Return to the care center 2. Do your best to stay hydrated 3. Take the zofran every 6 hours as needed for nausea 4. We did give you iv rocephin. This will help your UTI. Also make sure to take your next dose of Keflex 5. If you do not start feeling better in the next 1-2 days make sure to schedule an appointment with Dr. Olson at the clinic 6. Please feel free to call if you have any questions or concerns - Problem List & Annotations (1) Dehydration SNOMED Code(s): 14439645 Code(s): E86.0 - DEHYDRATION Status: Acute Priority: Medium Current Visit: Yes - Problem List Review Problem List Initiated/Reviewed/Updated: Yes - My Orders Last 24 Hours: My Active Orders 05/18/19 13:55 Sodium Chloride 0.9% [Saline Flush] 10 ml FLUSH ASDIRECTED PRN Saline Lock Insert [OM.PC] Routine - Assessment/Plan Last 24 Hours: My Active Orders 05/18/19 13:55 Sodium Chloride 0.9% [Saline Flush] 10 ml FLUSH ASDIRECTED PRN Saline Lock Insert [OM.PC] Routine Assessment:: dehydration Plan: Plan 1. Return to the care center 2. Do your best to stay hydrated 3. Take the zofran every 6 hours as needed for nausea 4. We did give you iv rocephin. This will help your UTI. Also make sure to take your next dose of Keflex 5. If you do not start feeling better in the next 1-2 days make sure to schedule an appointment with Dr. Olson at the clinic 6. Please feel free to call if you have any questions or concerns
[2019-05-18 14:38] LABS: CHLORIDE,CL 102 mmol/L (98-107); SODIUM,NA 139 mmol/L (136-145)
[2019-05-18 14:39] LABS: ANION GAP 18.2 mmol/L (10-20)
[2019-05-18 15:14] VITALS: BP 117/83
== END 2019-05-18 15:35 ==
LOC: VM.ED 13:37
DX: E86.0 Dehydration (principal); I10 Essential (primary) hypertension; Z88.1 Allergy status to other antibiotic agents; Z88.0 Allergy status to penicillin; Z88.2 Allergy status to sulfonamides; Z79.899 Other long term (current) drug therapy
CPT/HCPCS: 80053; 83605; 83735; 85025; 96361; 96374; 96375; 99284; J0696; J2405; J7030

== ENCOUNTER 2020-04-07 17:29 | Inpatient (IN) | payer MEDICARE, MEDICAID ==
[2020-04-07] MEDS ORDERED: Sodium Chloride 0.9% 10 ML Syringe FLUSH PRN (17:46)
[2020-04-07] MEDS ORDERED: cefTRIAXone 1 GM Vial IVPUSH ONE (17:46)
[2020-04-07] MEDS ORDERED: Sodium Chloride 0.9% 1,000 ML IV ONE (17:46)
--- NOTE | 2020-04-07 17:53 | EDM.PDOC ---
ED HPI GENERAL MEDICAL PROBLEM - General Chief Complaint: General Stated Complaint: Lethargy Time Seen by Provider: 04/07/20 17:35 Source of Information: Reports: Patient, EMS Notes Reviewed, RN History Limitations: Reports: Altered Mental Status - History of Present Illness INITIAL COMMENTS - FREE TEXT/NARRATIVE: Patient comes into the emergency department via EMS with concerns of worsening UTI symptoms. Patient was in the clinic 24 hours ago and was diagnosed with a UTI still pending cultures. However longterm had contacted the patient's primary care provider today stating that the patient continues to decline. She is not as alert as she normally is, turns with nausea and urine continues to produce large amount of mucus. Signs at the longterm are also 106/70, is increased at 106 respirations 20 temperature is 99.2 SPO2 is 98% on 2 L was given Tylenol to help with the slight fever. Patient's primary care provider request that the patient be transported to the emergency department for further evaluation and medical management regarding worsening signs and symptoms of her UTI. Patient does have a significant history of UTI sepsis history. She has been hospitalized multiple times requiring IV antibiotic and rehydration for her UTI symptoms. Currently denies any pain or concerns she states that she is tired and does not feel well. Onset: Gradual Improves with: Reports: None Worsens with: Reports: None Context: Reports: Other Associated Symptoms: Reports: Fever/Chills, Loss of Appetite, Malaise, Nausea/ Vomiting Treatments STICK WELDER: Reports: Acetaminophen - Related Data Allergies Allergy/AdvReac Type Severity Reaction Status Date / Time erythromycin base Allergy cannot Verified 05/18/19 16:50 [Erythromycin Base] remember] hydrochlorothiazide Allergy Cannot Verified 05/18/19 16:50 Remember Penicillins Allergy Cannot Verified 05/18/19 16:50 Remember Sulfa (Sulfonamide Allergy Cannot Verified 05/18/19 16:50 Antibiotics) Remember trimethoprim Allergy Cannot Verified 05/18/19 16:50 Remember Home Meds: Home Meds Acetaminophen 500 mg BID 05/18/19 [History] Albuterol Sulfate [Albuterol Sulfate Hfa] 2.5 mg Q4H PRN 05/18/19 [History] Ascorbic Acid [Vitamin C] 250 mg DAILY 05/18/19 [History] Cranberry Fruit Extract [Cranberry] 450 mg DAILY 05/18/19 [History] Cyanocobalamin (Vitamin B12) [Vitamin B12] 1,000 mcg DAILY 05/18/19 [History] Cyclobenzaprine [Flexeril] 5 mg DAILY 05/18/19 [History] Ferrous Gluconate 325 mg DAILY 05/18/19 [History] Folic Acid 1 mg BEDTIME 05/18/19 [History] Gabapentin [Neurontin] 800 mg TID 05/18/19 [History] Levothyroxine [Synthroid] 50 mcg DAILY 05/18/19 [History] Losartan [Cozaar] 50 mg DAILY 05/18/19 [History] Metoprolol Tartrate 25 mg BID 05/18/19 [History] Omeprazole 20 mg DAILY 05/18/19 [History] Potassium Chloride 20 meq DAILY 05/18/19 [History] Trolamine Salicylate/Aloe Vera [Aspercreme 10%] 1 applic TOP ASDIRECTED [History] Zinc Oxide [Desitin Creamy Diaper Rash Crm] 1 applic TOP DAILY 05/18/19 [History ] carBAMazepine [Carbamazepine ER] 200 mg PO BID 05/18/19 [History] carBAMazepine [Carbamazepine ER] 300 mg BID 05/18/19 [History] cephALEXin [Cephalexin] 500 mg QID 05/18/19 [History] polyethylene glycoL 3350 [MiraLAX] 1 packet DAILY 05/18/19 [History] Past Medical History HEENT History: Reports: Other (See Below) Other HEENT History: Dry Eyes Cardiovascular History: Reports: Hypertension Respiratory History: Reports: None Gastrointestinal History: Reports: Chronic Constipation, GERD Genitourinary History: Reports: Urinary Incontinence, UTI, Recurrent 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 Flaccid Hemiplegia affecting right dominant side Neurological History: Reports: Cerebral Palsy, Seizure, Other (See Below) Other Neuro History: Aphasia (following unspecified Cerebrovascular Disease), flaccid hemiplegia affecting right dominant side, localization-related symptomatic epilepsy and epileptic syndromes with complex partial seizures, not intractable, without status epilepticus Psychiatric History: Reports: Other (See Below) Other Psychiatric History: Unspecified Dementia Endocrine/Metabolic History: Reports: Hypothyroidism, Osteoporosis Other Endocrine/Metabolic History: hypomagnesemia. hypercalcemia Hematologic History: Reports: Anemia Dermatologic History: Reports: Eczema, Other (See Below) Other Dermatologic History: contact dermatitis - Infectious Disease History Infectious Disease History: Reports: MRSA Other Infectious Disease History: hx of mrsa and ltc isolation - Past Surgical History HEENT Surgical History: Reports: None Cardiovascular Surgical History: Reports: None Oncologic Surgical History: Reports: Biopsy of Breast Social & Family History - Family History Family Medical History: Noncontributory Cardiac: Reports: None Respiratory: Reports: None GI: Reports: None Musculoskeletal: Reports: Osteoporosis Neurological: Reports: Cerebral Palsy, Seizure Endocrine/Metabolic: Reports: Osteoporosis Hematologic: Reports: Anemia Dermatologic: Reports: Eczema Oncologic: Reports: None - Caffeine Use Caffeine Use: Reports: None ED ROS GENERAL - Review of Systems Review Of Systems: See Below Constitutional: Reports: Fever, Chills, Malaise, Weakness, Fatigue, Decreased Appetite HEENT: Reports: No Symptoms Respiratory: Reports: No Symptoms Cardiovascular: Reports: No Symptoms Endocrine: Reports: No Symptoms GI/Abdominal: Reports: No Symptoms Musculoskeletal: Reports: No Symptoms Skin: Reports: No Symptoms Neurological: Reports: No Symptoms Psychiatric: Reports: No Symptoms Hematologic/Lymphatic: Reports: No Symptoms Immunologic: Reports: No Symptoms ED EXAM, GENERAL - Physical Exam Exam: See Below Exam Limited By: No Limitations General Appearance: Alert, WD/WN Head: Atraumatic, Normocephalic Neck: Normal Inspection, Supple, Non-Tender, Full Range of Motion Respiratory/Chest: No Respiratory Distress, Lungs Clear, Normal Breath Sounds, No Accessory Muscle Use, Chest Non-Tender Cardiovascular: Normal Peripheral Pulses, Regular Rate, Rhythm, No Edema Extremities: Normal Inspection, Normal Range of Motion, Non-Tender, No Pedal Edema, Normal Capillary Refill Neurological: Oriented Psychiatric: Normal Affect, Normal Mood Skin Exam: Warm, Dry, Intact Course - Orders/Labs/Meds Orders: Active Orders 24 hr Category Date Time Status Admission Status [Patient Status] [ADT] Routine ADT 04/07/20 18:14 Ordered CBC WITH AUTO DIFF [HEME] Stat Lab 04/07/20 17:32 Ordered COMPREHENSIVE METABOLIC PN,CMP [CHEM] Stat Lab 04/07/20 17:32 Ordered CULTURE BLOOD [BC] Stat Lab 04/07/20 17:47 Ordered CULTURE BLOOD [BC] Stat Lab 04/07/20 17:47 Ordered LACTIC ACID [CHEM] Stat Lab 04/07/20 17:46 Ordered TROPONIN I [CHEM] Stat Lab 04/07/20 17:32 Ordered UA RFX MAREN AND CULT IF INDIC [URIN] Stat Lab 04/07/20 18:06 Ordered Sodium Chloride 0.9% [Normal Saline] 1,000 ml Med 04/07/20 17:46 Active IV ONETIME Sodium Chloride 0.9% [Saline Flush] Med 04/07/20 17:46 Active 10 ml FLUSH ASDIRECTED PRN Blood Culture x2 Reflex Set [OM.PC] Stat Oth 04/07/20 17:46 Ordered Peripheral IV Insertion Adult [OM.PC] Stat Oth 04/07/20 17:32 Ordered Medication Orders Sodium Chloride (Normal Saline) 1,000 mls @ 1,000 mls/hr IV ONETIME ONE Stop: 04/07/20 18:45 Sodium Chloride (Saline Flush) 10 ml FLUSH ASDIRECTED PRN PRN Reason: Keep Vein Open Meds: Medications Generic Name Dose Route Start Last Admin Trade Name Freq PRN Reason Stop Dose Admin Sodium Chloride 1,000 mls @ 1,000 mls/hr 04/07/20 17:46 Normal Saline IV 04/07/20 18:45 ONETIME ONE Sodium Chloride 10 ml 04/07/20 17:46 Saline Flush FLUSH ASDIRECTED PRN Keep Vein Open Discontinued Medications Generic Name Dose Route Start Last Admin Trade Name Freq PRN Reason Stop Dose Admin Ceftriaxone Sodium 1 gm 04/07/20 17:46 Rocephin IVPUSH 04/07/20 17:47 ONETIME ONE Departure - Departure Time of Disposition: 18:00 Disposition: Admitted As Inpatient 67 Condition: Good Clinical Impression: Lethargic, Nausea UTI (urinary tract infection) Qualifiers: Urinary tract infection type: site unspecified Hematuria presence: with hematuria Qualified Code(s): N39.0 - Urinary tract infection, site not specified - Discharge Information *PRESCRIPTION DRUG MONITORING PROGRAM REVIEWED*: Not Applicable *COPY OF PRESCRIPTION DRUG MONITORING REPORT IN PATIENT VILMA: Not Applicable Forms: ED Department Discharge Sepsis Event Note - Focused Exam Date Exam was Performed: 04/07/20 Time Exam was Performed: 18:15 - My Orders Last 24 Hours: My Active Orders 04/07/20 17:32 CBC WITH AUTO DIFF [HEME] Stat COMPREHENSIVE METABOLIC PN,CMP [CHEM] Stat TROPONIN I [CHEM] Stat Peripheral IV Insertion Adult [OM.PC] Stat 04/07/20 17:46 LACTIC ACID [CHEM] Stat Sodium Chloride 0.9% [Normal Saline] 1,000 ml IV ONETIME Sodium Chloride 0.9% [Saline Flush] 10 ml FLUSH ASDIRECTED PRN Blood Culture x2 Reflex Set [OM.PC] Stat 04/07/20 17:47 CULTURE BLOOD [BC] Stat CULTURE BLOOD [BC] Stat 04/07/20 18:06 UA RFX MAREN AND CULT IF INDIC [URIN] Stat 04/07/20 18:14 Admission Status [Patient Status] [ADT] Routine - Assessment/Plan Last 24 Hours: My Active Orders 04/07/20 17:32 CBC WITH AUTO DIFF [HEME] Stat COMPREHENSIVE METABOLIC PN,CMP [CHEM] Stat TROPONIN I [CHEM] Stat Peripheral IV Insertion Adult [OM.PC] Stat 04/07/20 17:46 LACTIC ACID [CHEM] Stat Sodium Chloride 0.9% [Normal Saline] 1,000 ml IV ONETIME Sodium Chloride 0.9% [Saline Flush] 10 ml FLUSH ASDIRECTED PRN Blood Culture x2 Reflex Set [OM.PC] Stat 04/07/20 17:47 CULTURE BLOOD [BC] Stat CULTURE BLOOD [BC] Stat 04/07/20 18:06 UA RFX MAREN AND CULT IF INDIC [URIN] Stat 04/07/20 18:14 Admission Status [Patient Status] [ADT] Routine Assessment:: 1. UTI 2. Nauseated 3. Lethargic Plan: 1. Sepsis protocol initiated and followed 2. Labs/UA completed in the ER. Results reviewed with the patient 3. Blood cultures completed 4. IV initiated in the emergency department 5. IV fluids provided 6. Rocephin 1gm given 7. Consultation completed with-Dr. Koo who is willing to admit the patient to acute care 8. Patient and nursing staff was updated regarding the plan of care 9. Patient and family are agreeable to the above plan of care 10. All questions and concerns were addressed with the patient and family prior to discharge
[2020-04-07 19:18] LABS: CHLORIDE,CL 111 mmol/L (98-107); SODIUM,NA 147 mmol/L (136-145)
[2020-04-07 19:26] LABS: ANION GAP 17.6 mmol/L (10-20)
[2020-04-07] MEDS ORDERED: Sodium Chloride 0.9% 500 ML IV SCH (19:45)
[2020-04-07] MEDS ORDERED: Enoxaparin 30 MG/0.3 ML Syringe SUBCUT SCH (20:00)
[2020-04-07] MEDS: Pantoprazole 40 MG Vial IVPUSH SCH (20:42)
--- NOTE | 2020-04-07 21:56 | HP ---
CHIEF COMPLAINT: Failed outpatient treatment for UTI with dehydration. SUMMARY OF HISTORY AND PHYSICAL: The patient is a 79-year-old resident of [facility]. She is a patient of Dr. Ivy Olson. She has been treated with Cipro as an outpatient for a few days for presumed bladder infection. She had given a urine sample earlier this week and it showed mixed lesly, but I am not certain if she had been on antibiotics prior to that or not. The patient was noted to be feeling more weaker, more lethargic, and family was interested in having her being acutely treated even though she was "code level 3" status at the senior living. Her lab work that had been done on 04/04/2020 showed her white blood cell count 6.2, hemoglobin 10.7, which was slightly higher than her baseline. Platelet count 438 with 78 segs, 11 lymphocytes, 9 monocytes. Her sodium 148 and potassium 3.8, glucose 116,. Cr 1.28, BUN 40 , GFR 40 LFTs were noted to be slightly elevated, AST 130 and ALT 90, alk phos 118, T whit 0.2. The patient was seen by Lindsay Rush NP in the emergency room and she received a liter bolus of normal saline as well as 1 g of Rocephin IV. The patient is a very poor historian and not able to give any history of her current problems. When asked if she has pain, she says no. [facility] paperwork showed that her temperature had been 99.2. Her sats were 98%, blood pressure is 106/70, heart rate was 106. MEDICATIONS: That she is currently on are Carbamazepine extended release 100 mg capsules, she takes 2 pills twice a day and 300 mg twice a day, zinc oxide 1 applicator p.r.n., Aspercreme 10% topically as needed, potassium chloride 20 mEq 1 pill daily, MiraLAX 1 packet daily, omeprazole 20 mg 1 pill daily, metoprolol tartrate 25 mg 1 pill twice a day, losartan 50 mg daily, levothyroxine 50 mcg 1 pill daily, gabapentin 800 mg 1 pill 3 times a day, folic acid 1 mg at bedtime, ferrous gluconate 325 one pill daily, Flexeril 5 mg 1 pill daily, vitamin B12, 1000 mcg daily, cranberry fruit extract 450 mg daily, vitamin C 250 mg chewable daily, albuterol 2.5 mg HFA q.4 hours p.r.n., acetaminophen 500 mg twice a day. ALLERGIES: Erythromycin, hydrochlorothiazide, penicillin, sulfa, trimethoprim. PAST MEDICAL HISTORY: The patient had acute CVA on 02/20/2018 with right facial droop. She has had a previous history of stroke in 2017, which she normally wears an orthotic on her right lower leg. Receives assistance. The patient has cerebral palsy. She has had MRSA. 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 She has had hypothyroidism, osteoporosis, anemia, eczema, contact dermatitis. She has hypertension, chronic pain, dementia with behavioral disturbances, cataracts. PAST SURGICAL HISTORY: In 1991,leg shortening surgery?. FAMILY MEDICAL HISTORY: Mother has had cataracts. Otherwise, history is noncontributory. SOCIAL HISTORY: The patient had lived with her parents when she was younger. She moved to [facility] and to [facility] since 1990 until 2013 when she moved to [facility]. FAMILY HISTORY: Father is a retired [employer]. Sister is Missy Carter.. She [place]. She sees Dr. Mccormack for her seizure disorder. The patient usually is in a wheelchair. REVIEW OF SYSTEMS: The patient cannot give any history. She has some dysarthria. No evidence of vomiting. No diarrhea. No shortness of breath. No hypoxemia. Possible recent melancholic mood. No bruises. No fever. PHYSICAL EXAMINATION: General: The patient was seen in the emergency department. She was home. Vital Signs: Showed that her weight was 53.5 kg, temperature 35.3, pulse 99, respirations 16, sats 95%, blood pressure is 132/91. HEENT: Objectively, her eyes were open. Mucous membranes were noted to be extremely dry. She was calm. Skin: Dry. Slight tenting. Neck: No anterior cervical lymphadenopathy. Heart: Regular rate and rhythm without murmurs or bruits. Lungs: Clear to auscultation. Abdomen: Bowel sounds present. Soft, nontender. Lower extremities: Have some mild abrasions, but no edema. Neurologic: The patient does not speak except for possibly a one-word sentence. Not certain if she comprehends questions that are asked of her. She is hemiparetic on her right side. Weak on her good side. Psych. Mood is calm. LABORATORY DATA: Shows her white blood cell count 6.3, hemoglobin 9.5, platelet count 364 with 74 segs, 14 lymphs, 9 monos. Sodium 147, potassium 3.6, creatinine 1.4, BUN 44, GFR 36, glucose 111, lactic acid 1.1, total bili 0.3, AST 25, ALT 43, alk phos 113. Troponin less than 0.017. Albumin 3.0. IMPRESSION: 1. Urinary tract infection, failed outpatient therapy. 2. Dehydration. 3. Recent elevated liver function tests, now normal. 4. 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 5. Seizure disorder. 6. Cerebral palsy. 7. Hypertension. 8. Hypothyroidism. 9. Dementia, without behavior problems. 10. Gastritis, PLAN: The patient will be admitted to acute care. We will continue IV Rocephin as well as IV fluids. The patient's resuscitation status is do not resuscitate/do not intubate. Intent would be to treat her infection. Urine culture obtained as well as blood culture obtained, and for her to be able to return to her senior living. The patient does seem to be acutely anemic as her previous hemoglobin had been 11. Possibly may have been somewhat dilutional from IV fluids. We will need to monitor this. The patient was placed on Lovenox for DVT prophylaxis. Her diet will be what she had been at the senior living. Will place her on protonix because of concern for GI issues, which may be influencing intake. GM04/07/2020 20:19:01 MODL: 04/07/2020 21:46:09 /[id number] MAGUE
[2020-04-08] MEDS: Sodium Chloride 0.9% 1,000 ML IV SCH ×2 (00:07→07:43)
[2020-04-08] MEDS: Levothyroxine 50 MCG Tab PO SCH (06:35)
[2020-04-08] MEDS ORDERED: CARBAMAZEPINE 300 MG PO SCH (08:00)
[2020-04-08] MEDS ORDERED: FERROUS GLUCONATE 325 MG PO SCH (08:00)
[2020-04-08] MEDS ORDERED: carBAMazepine 100 MG Cap.ER PO SCH (08:00)
[2020-04-08 08:42] LABS: ANION GAP 16.4 mmol/L (10-20)
--- NOTE | 2020-04-08 08:50 | PN ---
Progress Note for CHERYLE JAMES Date: 04/08/2020 Room #: VM.203 SUBJECTIVE: The patient had a fairly calm night. She has been fairly lethargic and sleepy. Her urine output has been very limited until just recently. OBJECTIVE: Vital Signs: Her temperature is 36.6, which is the highest it has been since admission. Weight 53.5 kg. Pulse 94, which is improved. Blood pressure is 125/63. Respiratory rate 16. Saturations are 94. Skin: More full. HEENT: Her mucous membranes are moist. Heart: Regular rate and rhythm. Lungs: Clear to auscultation. Abdomen: Soft and nontender. LABORATORY DATA: Her labs that is back so far shows her hemoglobin has dropped down to 8.4, white blood cell count 5.9, platelets 304, with 79 segs, and 9.7 lymphocytes. Her urine was dark, specific gravity 1.025, protein 100, large leukocyte esterase, 20 to 30 red blood cells, 40 to 50 white blood cells, moderate bacteria, and few epithelial cells. IMPRESSION: 1. Systemic inflammatory response syndrome. 2. Urinary tract infection. 3. Anemia, acute blood loss. 4. Gastritis. 5. Dehydration, improving. 6. Dementia. 7. Hemiplegia. 8. Seizure disorder. 9. Recently elevated LFTs. PLAN: We will stop Lovenox right now because of concern with GI bleeding. We will continue the IV Protonix. She is on IV Rocephin, and we will await the results of her comprehensive metabolic profile this morning as well as the iron storage studies; and her lactic acid and a TSH is still pending at the time of this dictation. GM04/08/2020 08:24:22 MODL: 04/08/2020 08:45:08 /[id number]
[2020-04-08] MEDS: carBAMazepine 100 MG Cap.ER PO SCH ×2 (10:40→20:36)
[2020-04-08] MEDS: Cyclobenzaprine 10 MG Tab PO SCH (10:41)
[2020-04-08] MEDS: Gabapentin 400 MG Cap PO SCH ×3 (10:41→20:38)
[2020-04-08] MEDS: Losartan 50 MG Tab PO SCH (10:42)
[2020-04-08] MEDS: Metoprolol Tartrate 25 MG Tab PO SCH ×2 (10:42→20:36)
[2020-04-08] MEDS: Cyanocobalamin (Vitamin B12) 1,000 MCG Tab PO SCH (10:42)
[2020-04-08] MEDS: Polyethylene Glycol 3350 Powder 17 GM Packet PO SCH (10:43)
[2020-04-08] MEDS: Pantoprazole 40 MG Vial IVPUSH SCH ×2 (10:49→20:38)
[2020-04-08] MEDS: Ferrous Sulfate 325 MG Tab PO SCH (10:51)
[2020-04-08] MEDS: Ondansetron 4 MG/2 ML SDV IVPUSH PRN (12:10)
[2020-04-08] MEDS: cefTRIAXone 1 GM Vial IVPUSH SCH (12:11)
[2020-04-08] MEDS: NS + KCl 20mEq/L 1,000 ML IV SCH ×2 (12:16→20:11)
[2020-04-08] MEDS: Folic Acid 1 MG Tab PO SCH (20:36)
[2020-04-09] MEDS: NS + KCl 20mEq/L 1,000 ML IV SCH ×2 (04:26→13:03)
[2020-04-09] MEDS: Levothyroxine 50 MCG Tab PO SCH (06:31)
[2020-04-09 08:45] LABS: ANION GAP 16.3 mmol/L (10-20); CHLORIDE,CL 116 mmol/L (98-107); SODIUM,NA 148 mmol/L (136-145)
[2020-04-09] MEDS: Pantoprazole 40 MG Vial IVPUSH SCH ×2 (09:42→19:52)
[2020-04-09] MEDS: Losartan 50 MG Tab PO SCH (09:42)
[2020-04-09] MEDS: carBAMazepine 100 MG Cap.ER PO SCH ×2 (09:43→20:32)
[2020-04-09] MEDS: Ondansetron 4 MG/2 ML SDV IVPUSH PRN (09:44)
[2020-04-09] MEDS: Cyclobenzaprine 10 MG Tab PO SCH (09:46)
[2020-04-09] MEDS: Gabapentin 400 MG Cap PO SCH ×3 (09:46→19:51)
[2020-04-09] MEDS: Metoprolol Tartrate 25 MG Tab PO SCH ×2 (09:48→19:51)
[2020-04-09] MEDS: Polyethylene Glycol 3350 Powder 17 GM Packet PO SCH (09:49)
[2020-04-09] MEDS: Ferrous Sulfate 325 MG Tab PO SCH (09:49)
[2020-04-09] MEDS: Cyanocobalamin (Vitamin B12) 1,000 MCG Tab PO SCH (09:49)
--- NOTE | 2020-04-09 12:24 | PN ---
Progress Note for CHERYLE JAMES Date: 04/09/2020 Room #: VM.203 SUBJECTIVE: This is the patient's third hospital day of being admitted with sepsis with dehydration. The patient seemed to be a little bit more calm, alert. Last evening and this morning, we had increased her IV fluid rate as well as added potassium. Hinojosa catheter was placed to measure accurate I's and O's. It was noted she had a significant hemoglobin drop and concerned for GI bleeding, so her Lovenox was stopped and IV Protonix was continued. Stool for heme was positive by FIT test. OBJECTIVE: Vital Signs: This morning, her temperature is 36.4, pulse 82, blood pressure 97/65, respirations 17, sats 93%. General: The patient is more alert and does acknowledge me. Heart: Regular rate and rhythm. Lungs: Clear to auscultation. Abdomen: Bowel sounds are present, more active. She does have some mild epigastric tenderness to palpation. No guarding. No rebound. Urine color is clear yellow. LABORATORY DATA: Lab is pending yet today. IMPRESSION: 1. Systemic inflammatory response syndrome. 2. Dehydration. 3. Acute blood loss anemia. 4. Recent elevated LFTs. 5. Dementia. 6. Hemiplegia due to cerebrovascular accident. 7. Seizure disorder. PLAN: We will reduce her IV fluid rate to 75 mL per hour. We will await the results of her blood work and we will check a lipase again today, and so far her cultures have been negative for her blood. Urine culture is still pending. She will be continued on IV Rocephin at the present time. GM04/09/2020 08:21:42 MODL: 04/09/2020 08:44:46 /[id number]
[2020-04-09] MEDS: cefTRIAXone 1 GM Vial IVPUSH SCH (13:00)
[2020-04-09] MEDS: Folic Acid 1 MG Tab PO SCH (19:51)
[2020-04-10] MEDS: NS + KCl 20mEq/L 1,000 ML IV SCH (02:18)
[2020-04-10] MEDS: Levothyroxine 50 MCG Tab PO SCH (06:15)
[2020-04-10 07:27] LABS: CHLORIDE,CL 115 mmol/L (98-107); SODIUM,NA 147 mmol/L (136-145)
[2020-04-10] MEDS ORDERED: Iron Sucrose Complex 100 MG/5 ML SDV IVPUSH ONE (08:47)
[2020-04-10] MEDS: Losartan 50 MG Tab PO SCH (11:20)
[2020-04-10] MEDS: Gabapentin 400 MG Cap PO SCH ×3 (11:20→19:34)
[2020-04-10] MEDS: Pantoprazole 40 MG Vial IVPUSH SCH (11:20)
[2020-04-10] MEDS: Cyclobenzaprine 10 MG Tab PO SCH (11:21)
[2020-04-10] MEDS: Cyanocobalamin (Vitamin B12) 1,000 MCG Tab PO SCH (11:21)
[2020-04-10] MEDS: Metoprolol Tartrate 25 MG Tab PO SCH ×2 (11:21→19:39)
[2020-04-10] MEDS: cefTRIAXone 1 GM Vial IVPUSH SCH (11:22)
[2020-04-10] MEDS: Polyethylene Glycol 3350 Powder 17 GM Packet PO SCH (11:26)
[2020-04-10] MEDS: Ferrous Sulfate 325 MG Tab PO SCH (11:30)
[2020-04-10] MEDS: carBAMazepine 100 MG Cap.ER PO SCH ×2 (11:31→19:34)
[2020-04-10] MEDS ORDERED: Sodium Ferric Gluconate Cmplex 125 MG in Sodium Chloride 0.9% 100 ML IV ONE (12:00)
[2020-04-10] MEDS ORDERED: Linezolid 600 MG Tab PO SCH (13:30)
--- NOTE | 2020-04-10 15:23 | PN ---
Progress Note for CHERYLE JAMES Date: 04/10/2020 Room #: VM.203 SUBJECTIVE: A 79-year-old seen today for hospital day #4 for a complicated UTI failing outpatient antibiotics and dehydration. The patient has had poor oral intake since her stay, eating 25% or less of meals. She has been on IV fluids. She has had a catheter in place. She has been afebrile. She has been getting her home blood pressure medications, but today blood pressures are elevated, 145/100. She denies that she is having any chest pain, cough, or shortness of breath. She is more sleepy this morning, but otherwise has been up and alert per staff over the weekend. She has not had diarrhea. OBJECTIVE: Vital Signs: Her temperature is 97.8, pulse 95, blood pressure 145/100, respiratory rate 17, and O2 of 93% on room air. Weight is 55.7 on the Nadia lift, 53.5 on admission. General: She is in no acute distress. Heart: Regular rate and rhythm. S1, S2 without murmur. Lungs: Sounds are clear to auscultation bilaterally without crackles or wheezes. Abdomen: Has positive bowel sounds. Soft, nontender. Extremities: Warm and dry. No edema. Mental Status: She seems to be alert. She is talking, but speech is more slow, but is answering questions. LABORATORY DATA: Lab work shows white count 4.8, hemoglobin down to 7.8, platelets 283. Sodium 147, potassium 4, chloride 115, bicarb 19, BUN 10, creatinine 0.8, glucose 95, calcium 8.4. Iron down to a ferritin of 38. Bilirubin 0.3, AST 14, ALT 23, alkaline phosphatase 99, albumin 2.4, lipase 220. TSH normal, 1.1 yesterday. Urine culture is showing Staphylococcus aureus. She has been on IV Rocephin now day #4. ASSESSMENT AND PLAN: 1. Complicated urinary tract infection in a patient with a history of urinary tract infections. We will remove her Hinojosa today and do bladder scan. Given her history of methicillin-resistant Staphylococcus aureus and Staphylococcus aureus in the urine, her blood cultures are already negative, I will stop the IV Rocephin and place her on oral Zyvox 600 twice daily. She was newly started on Zoloft, but has not been getting it here. We will hold off on starting further antidepressants at this time. 2. Dehydration due to poor oral intake. We will stop the patient's oral iron, see if this helps her intake at all. It is possible that she has had some depression given the current situation of no visitors. Her creatinine has improved from 1.4 now down to 0.8. 3. Renal insufficiency, improved. 4. Hypernatremia, probably due to poor oral intake. 5. Severe malnutrition. Diet will be encouraged. She has had a poor appetite and weight loss over several months. 6. Acute on chronic blood loss anemia. Hemoccult positive. She has a known history of gastritis. She is on IV Protonix. I will switch her over to oral. No transfusion indicated, but due to iron deficiency, I will order her some IV iron. This was discussed with her sister who was in agreement. 7. Adjustment disorder with depression. We will start her on Remeron once she completes Zyvox. 8. Elevated LFTs recently prior to admit. These have returned to normal. 9. Cerebral palsy and underlying dementia. She will continue on home medications. 10.Seizure disorder. She will continue Neurontin. 11.Deep vein thrombosis prophylaxis. She is off Lovenox due to concern for gastrointestinal bleeding. SCDs have been ordered. 12.Essential hypertension. Blood pressure is elevated. She is on her home medications, possibly due to the amount of fluid she has already gotten. We will continue to monitor and adjust blood pressure pills if needed. PLAN: The patient is admitted to continue with her acute cares. We will stop IV fluids today. We will give her IV iron. We will switch her over to oral antibiotics. We will switch her over to oral PPI agent. We will repeat lab work tomorrow. We will continue to encourage a diet. The patient will also be COVID tested for potential return to [facility] as soon as tomorrow. Her blood cultures have been negative. We will continue yogurt. She is having bowel movements. Addendum no Zyvox available so IV Vanco ordered for potential MRSA urine infection per lab clt won't return final for another 1-2 days. MKA: 04/10/2020 13:27:59 MODL: 04/10/2020 14:02:36 /[id number] MAGUE
[2020-04-10] MEDS: Omeprazole 20 MG Cap.CR PO SCH (16:11)
[2020-04-10] MEDS: Folic Acid 1 MG Tab PO SCH (19:35)
[2020-04-10] MEDS ORDERED: Mirtazapine 15 MG Tab PO SCH (20:00)
[2020-04-11] MEDS: Levothyroxine 50 MCG Tab PO SCH (06:34)
[2020-04-11] MEDS: Omeprazole 20 MG Cap.CR PO SCH (06:34)
[2020-04-11 07:00] LABS: CHLORIDE,CL 109 mmol/L (98-107); SODIUM,NA 143 mmol/L (136-145)
[2020-04-11 07:02] LABS: ANION GAP 14.4 mmol/L (10-20)
[2020-04-11] MEDS ORDERED: Potassium Chloride 10 MEQ Tab.ER PO ONE (08:24)
[2020-04-11] MEDS: Gabapentin 400 MG Cap PO SCH (08:50)
[2020-04-11] MEDS: Losartan 50 MG Tab PO SCH (08:50)
[2020-04-11] MEDS: carBAMazepine 100 MG Cap.ER PO SCH (08:50)
[2020-04-11] MEDS: Cyanocobalamin (Vitamin B12) 1,000 MCG Tab PO SCH (08:51)
[2020-04-11] MEDS: Cyclobenzaprine 10 MG Tab PO SCH (08:51)
[2020-04-11] MEDS: Metoprolol Tartrate 25 MG Tab PO SCH (08:52)
[2020-04-11] MEDS: Polyethylene Glycol 3350 Powder 17 GM Packet PO SCH (08:52)
[2020-04-11] MEDS ORDERED: Sodium Ferric Gluconate Cmplex 125 MG in Sodium Chloride 0.9% 100 ML IV ONE (10:00)
[2020-04-11 10:35] VITALS: BP 147/85; PULSE 92
--- NOTE | 2020-04-12 02:24 | DISCH ---
PRIMARY DISCHARGE DIAGNOSES: 1. Staphylococcus aureus urinary tract infection, unknown if it is methicillin- resistant Staphylococcus aureus or not. Culture will return in the next 1 to 2 days. Patient has a history of MRSA 2. Acute on chronic blood loss anemia with positive Hemoccult and known history of gastritis. Received IV Protonix, and hemoglobins were stable. 3. Dehydration due to poor oral intake with mild renal insufficiency. Creatinine 1.4 on admission, down to 0.8 on discharge. 4. Hypernatremia due to poor oral intake, resolved. 5. Severe malnutrition. We encouraged the diet. We adjusted her medications and she was actually eating better on discharge, up to 100% of her dinner meal last evening. 6. Adjustment disorder with depression. She will be started on Remeron on discharge. We held off on the hospital admission due to the concern that she would need to be on Zyvox. 7. Elevated liver function tests prior to admission, resolved. 8. Cerebral palsy and underlying dementia. She will continue her home medications. 9. Seizure disorder, on Neurontin. She had no seizures. 10.Deep venous thrombosis prophylaxis. She initially got some Lovenox, but due to concern for gastrointestinal bleeding, this was stopped. She was then placed on sequential compression devices. 11.Essential hypertension. Blood pressure is well controlled today. REASON FOR ADMISSION: On the date of admission, this 79-year-old female who lives at the group home had been doing poorly for quite some time. She had been diagnosed with a UTI. The culture showed mixed lesly and she had already been placed on and completed Cipro with no improvement in her symptoms. Therefore, she was sent over to the emergency room, low-grade fever, tachycardic, concern for sepsis, and dehydration. While in the emergency room, it was decided that she would stay inpatient for further cares. Her thyroid was checked during her stay here, which was normal. Her iron studies were also checked, which showed her to be deficient of iron, ferritin just 38. I felt it possible that the oral iron was making her sick and maybe even causing some stomach irritation. Therefore, this was discontinued and she received 2 doses of IV iron prior to transfer back to the [facility]. She also was receiving IV Rocephin, but on 04/10/2020 I switched her over to IV vancomycin, which she completed 2 days of as we did not have Zyvox available. Decision was made by myself that since there were no fevers and clinically she was doing so much better that I would hold off on starting her on that antibiotic on discharge back to the group home. I had a discussion with her sister about her overall condition. Decision was made to try her on Remeron. She had recently been initiated on Zoloft, but that had not been given to her during her hospital stay here. We also transitioned her IV Protonix that was started due to concern for GI bleeding over to Prilosec 20 mg twice daily. The patient has previously taken Prilosec as well. PHYSICAL EXAMINATION: Discharge Vitals: Do include a temperature 97.3, pulse 87, blood pressure 120/62, respiratory rate 16, O2 of 95% on room air. General: She is in no acute distress. Heart: Regular rate and rhythm. S1, S2 without murmur. Lungs: Lung sounds are clear to auscultation bilaterally without crackles or wheezes. Abdomen: Has positive bowel sounds. Soft, nontender. Extremities: Warm and dry. No edema. Mental Status: She is alert. She answered questions yes or no, but she was pretty sleepy still this morning, which is her norm since she has been here. She was sort of leaning off to the right, which is normal for her. She made good eye contact. She did smile a couple of times when we were visiting. DISCHARGE LABORATORY WORK: Shows the white count normal at 4.7, hemoglobin 7.9, it was 9.5 on admission. She received no blood transfusions. Platelets 286. Sodium 143, potassium 3.4, chloride 109, bicarb 23, BUN 6, creatinine 0.8, magnesium 1.8. A dose of oral potassium was ordered for her prior to discharge. DISCHARGE PLANS AND INSTRUCTIONS: She will see Dr. Olson on her next scheduled group home rounds. I recommend she stay on yogurt twice daily for 2 weeks to prevent C diff or other diarrhea from being on antibiotics. If she does not like yogurt, she could have a probiotic. Remeron 7.5 mg will be started at bedtime for mood. (Zoloft stopped) Prilosec 20 mg twice daily for 1 month and then daily to continue after that. BMP and CBC in 2 weeks. PT, OT, and Speech at the care center. Dietitian to follow and see how she is doing with her calorie counts. She will stop iron pills. Greater than 30 minutes spent on the discharge process. MKA: 04/11/2020 09:16:16 MODL: 04/12/2020 02:04:35 /[id number] MTDD
== END 2020-04-11 11:15 | DRG 871 ==
LOC: VM.ED 17:29 → VM.MS 18:14
PROVIDERS: ADMIT Family Medicine; ATTEND Internal Medicine
DX: A41.9 Sepsis, unspecified organism (principal); R11.2 Nausea with vomiting, unspecified; E43 Unspecified severe protein-calorie malnutrition; N39.0 Urinary tract infection, site not specified; D62 Acute posthemorrhagic anemia; E87.0 Hyperosmolality and hypernatremia; I69.351 Hemiplegia and hemiparesis following cerebral infarction affecting right dominant side; F03.91 Unspecified dementia, unspecified severity, with behavioral disturbance; H04.123 Dry eye syndrome of bilateral lacrimal glands; K21.9 Gastro-esophageal reflux disease without esophagitis; E86.0 Dehydration; B95.62 Methicillin resistant Staphylococcus aureus infection as the cause of diseases classified elsewhere; Z20.828 Contact with and (suspected) exposure to other viral communicable diseases; F03.90 Unspecified dementia, unspecified severity, without behavioral disturbance, psychotic disturbance, mood disturbance, and anxiety; F43.21 Adjustment disorder with depressed mood; R74.8 Abnormal levels of other serum enzymes; Z68.24 Body mass index [BMI] 24.0-24.9, adult; G80.9 Cerebral palsy, unspecified; Z88.8 Allergy status to other drugs, medicaments and biological substances; G40.909 Epilepsy, unspecified, not intractable, without status epilepticus; Z79.899 Other long term (current) drug therapy; I10 Essential (primary) hypertension; R19.5 Other fecal abnormalities; K59.09 Other constipation; R32 Unspecified urinary incontinence; M81.0 Age-related osteoporosis without current pathological fracture; E03.9 Hypothyroidism, unspecified; G89.29 Other chronic pain; K29.70 Gastritis, unspecified, without bleeding; Z88.1 Allergy status to other antibiotic agents; Z79.890 Hormone replacement therapy; Z88.2 Allergy status to sulfonamides; I69.320 Aphasia following cerebral infarction; Z86.14 Personal history of Methicillin resistant Staphylococcus aureus infection; Z88.0 Allergy status to penicillin
CPT/HCPCS: 36415; 51702; 51798; 80048; 80053; 81001; 81003; 82274; 82728; 83540; 83550; 83605; 83690; 83735; 84443; 84484; 85025; 86140; 86850; 86900; 86901; 87040; 87086; 87088; 87186; 96374; 99284-25; 99284-GF; A9270-GY; C9113; J0696; J1650; J2405; J2916; J3370; J3480; J7030; J7050; U0002

== ENCOUNTER 2020-08-27 13:01 | Inpatient (IN) | payer MEDICARE, MEDICAID ==
--- NOTE | 2020-08-27 13:36 | EDM.PDOC ---
ED HPI GENERAL MEDICAL PROBLEM - General Chief Complaint: Cardiovascular Problem Stated Complaint: BP ISSUES Time Seen by Provider: 08/27/20 13:05 Source of Information: Reports: EMS, Jail Records History Limitations: Reports: Altered Mental Status - History of Present Illness INITIAL COMMENTS - FREE TEXT/NARRATIVE: Melissa is a 79 year old female from the local skilled nursing who presents per EMS with concerns with hypotension. Staff at the care center noted a blood pressure of 60/40. Was not responding well, more lethargic today. Did arouse for EMS on their arrival, blood pressure was 109 systolic. Staff reports she did have a coffee ground emesis last evening. Normal colored soft stool this am. Patient maintain eye contact but does not verbalize any answers to questions asked. Oxygen sat for EMS was in the upper 80s. Is routinely on oxygen, increased to 3 liters today. Onset: Gradual Duration: Hour(s): Location: Reports: Chest, Generalized Associated Symptoms: Reports: Cough, Nausea/Vomiting, Shortness of Breath, Weakness. Denies: Fever/Chills Treatments LAMINATION BUILDER: Reports: Oxygen - Related Data Allergies Allergy/AdvReac Type Severity Reaction Status Date / Time erythromycin base Allergy cannot Verified 08/27/20 14:15 [Erythromycin Base] remember] hydrochlorothiazide Allergy Cannot Verified 08/27/20 14:15 Remember Penicillins Allergy Cannot Verified 08/27/20 14:15 Remember Sulfa (Sulfonamide Allergy Cannot Verified 08/27/20 14:15 Antibiotics) Remember trimethoprim Allergy Cannot Verified 08/27/20 14:15 Remember Home Meds: Home Meds Acetaminophen 500 mg BID 05/18/19 [History] Albuterol Sulfate [Albuterol Sulfate Hfa] 2.5 mg Q4H PRN 05/18/19 [History] Cranberry Fruit Extract [Cranberry] 450 mg DAILY 05/18/19 [History] Cyanocobalamin (Vitamin B12) [Vitamin B12] 1,000 mcg DAILY 05/18/19 [History] Cyclobenzaprine [Flexeril] 5 mg DAILY 05/18/19 [History] Folic Acid 1 mg BEDTIME 05/18/19 [History] Gabapentin [Neurontin] 800 mg TID 05/18/19 [History] Levothyroxine [Synthroid] 50 mcg DAILY 05/18/19 [History] Losartan [Cozaar] 50 mg DAILY 05/18/19 [History] Metoprolol Tartrate 25 mg BID 05/18/19 [History] carBAMazepine [Carbamazepine ER] 200 mg PO BID 05/18/19 [History] carBAMazepine [Carbamazepine ER] 300 mg BID 05/18/19 [History] polyethylene glycoL 3350 [MiraLAX] 1 packet DAILY 05/18/19 [History] Mirtazapine [Remeron] 7.5 mg PO BEDTIME #15 tab.dis 04/11/20 [Rx] Omeprazole 20 mg PO BIDAC cap.cr 04/11/20 [Rx] Past Medical History HEENT History: Reports: Cataract, Other (See Below) Other HEENT History: Dry Eyes Cardiovascular History: Reports: Hypertension Respiratory History: Reports: None Gastrointestinal History: Reports: Chronic Constipation, GERD Genitourinary History: Reports: Urinary Incontinence, UTI, Recurrent MANAGER OF IT History: 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 Flaccid Hemiplegia affecting right dominant side Neurological History: Reports: Cerebral Palsy, Seizure, Other (See Below) Other Neuro History: Aphasia (following unspecified Cerebrovascular Disease), flaccid hemiplegia affecting right dominant side, localization-related symptomatic epilepsy and epileptic syndromes with complex partial seizures, not intractable, without status epilepticus Psychiatric History: Reports: Other (See Below) Other Psychiatric History: Unspecified Dementia Endocrine/Metabolic History: Reports: Hypothyroidism, Osteoporosis Other Endocrine/Metabolic History: hypomagnesemia. hypercalcemia Hematologic History: Reports: Anemia Dermatologic History: Reports: Eczema, Other (See Below) Other Dermatologic History: contact dermatitis - Infectious Disease History Infectious Disease History: Reports: MRSA Other Infectious Disease History: hx of mrsa and ltc isolation - Past Surgical History HEENT Surgical History: Reports: None Cardiovascular Surgical History: Reports: None Oncologic Surgical History: Reports: Biopsy of Breast Social & Family History - Family History Family Medical History: Noncontributory Cardiac: Reports: None Respiratory: Reports: None GI: Reports: None Musculoskeletal: Reports: Osteoporosis Neurological: Reports: Cerebral Palsy, Seizure Endocrine/Metabolic: Reports: Osteoporosis Hematologic: Reports: Anemia Dermatologic: Reports: Eczema Oncologic: Reports: None - Tobacco Use Smoking Status *Q: Unknown Ever Smoked - Caffeine Use Caffeine Use: Reports: None ED ROS GENERAL - Review of Systems Review Of Systems: See Below Reason Not Obtained: obtained per nursing staff/EMS Constitutional: Reports: Malaise, Weakness, Fatigue, Decreased Appetite. Denies: Fever Respiratory: Reports: Shortness of Breath, Wheezing, Cough Cardiovascular: Reports: Blood Pressure Problem Endocrine: Reports: Fatigue GI/Abdominal: Reports: Hematemesis, Nausea, Vomiting : Reports: Incontinence Neurological: Reports: Pre-Existing Deficit (right sided weakness from previous CVA. Has spastisty related to CP) ED EXAM, GENERAL - Physical Exam Exam: See Below Exam Limited By: Altered Mental Status General Appearance: Alert, WD/WN Ears: Normal External Exam, Normal TMs Nose: Normal Inspection, Normal Mucosa, No Blood Throat/Mouth: Other (mucous membranes dry) Head: Normocephalic Neck: Normal Inspection, Supple Respiratory/Chest: Decreased Breath Sounds, Wheezing, Other (tachypnea) Cardiovascular: Tachycardia GI/Abdominal: Normal Bowel Sounds, Soft, Non-Tender Extremities: Other (right arm is double-jointed, flaccid but does have spontaneous spasms. RLE flaccid. ) Neurological: Alert, Other (aphasic, does not answer any questions. Maintains good eye contact). No: CN II-XII Intact (unable to test) Skin Exam: Warm, Dry Course - Vital Signs Last Recorded V/S: Last Vital Signs Temp 99.2 F 08/27/20 13:05 Pulse 104 H 08/27/20 13:05 Resp 24 H 08/27/20 13:05 BP 120/71 08/27/20 13:05 Pulse Ox 3 L 08/27/20 13:05 - Orders/Labs/Meds Orders: Active Orders 24 hr Category Date Time Status Patient Status Manage Transfer [TRANSFER] Routine ADT 08/27/20 14:24 Active CULTURE BLOOD [BC] Stat Lab 08/27/20 13:20 Received CULTURE BLOOD [BC] Stat Lab 08/27/20 13:42 Received CULTURE URINE [RM] Stat Lab 08/27/20 13:30 Received Sodium Chloride 0.9% [Normal Saline] 1,000 ml Med 08/27/20 13:30 Active IV ASDIRECTED cefTRIAXone [Rocephin] Med 08/27/20 13:30 Active 1 gm IVPUSH Q24H Blood Culture x2 Reflex Set [OM.PC] Stat Oth 08/27/20 13:13 Ordered Medication Orders Ceftriaxone Sodium (Rocephin) 1 gm IVPUSH Q24H [facility] Last Admin: 08/27/20 13:41 Dose: 1 gm Documented by: PAKO Sodium Chloride (Normal Saline) 1,000 mls @ 500 mls/hr IV ASDIRECTED [facility] Last Admin: 08/27/20 13:41 Dose: 150 mls/hr Documented by: PAKO Labs: Laboratory Tests 08/27/20 08/27/20 08/27/20 Range/Units 13:20 13:30 13:42 WBC 10.4 H (4.0-10.0) x10^3/uL RBC 3.25 L (4.00-5.50) x10^6/uL Hgb 10.2 L D (12.0-16.0) g/dL Hct 32.1 L (33.0-47.0) % MCV 98.8 H (78.0-93.0) fL MCH 31.4 (26.0-32.0) pg MCHC 31.8 L (32.0-36.0) g/dL RDW Coeff of Gabrielle 12.5 (10.0-15.0) % Plt Count 398 D (130-400) x10^3/uL Neut % (Auto) 91.5 H (50.0-80.0) % Lymph % (Auto) 3.7 L (25.0-50.0) % [place] % (Auto) 4.6 (2.0-11.0) % Eos % (Auto) 0.1 (0.0-4.0) % Baso % (Auto) 0.1 L (0.2-1.2) % Sodium (136-145) mmol/L Potassium (3.5-5.1) mmol/L Chloride (98-107) mmol/L Carbon Dioxide (21-32) mmol/L Anion Gap (10-20) mmol/L BUN (7-18) mg/dL Creatinine (0.55-1.02) mg/dL Est Cr Clr Drug Dosing Estimated GFR (MDRD) Glucose (74-106) mg/dL Lactic Acid (0.4-2.0) mmol/L Calcium (8.5-10.1) mg/dL Corrected Calcium (8.5-10.1) mg/dL Total Bilirubin (0.2-1.0) mg/dL AST (15-37) U/L ALT (14-59) U/L Alkaline Phosphatase (46-116) U/L Troponin I (<=0.056) ng/mL C-Reactive Protein (<=0.9) mg/dL NT-Pro-B Natriuret Pep (<=450) pg/mL Total Protein (6.4-8.2) g/dL Albumin (3.4-5.0) g/dL Globulin Albumin/Globulin Ratio Urine Color Dark yellow H (YELLOW) Urine Appearance Turbid H (CLEAR) Urine pH 7.0 (5.0-8.0) Ur Specific [place] 1.025 Urine Protein 100 H (NEGATIVE) mg/dL Urine Glucose (UA) Negative (NEGATIVE) mg/dL Urine Ketones 15 H (NEGATIVE) mg/dL Urine Occult Blood Moderate H (NEGATIVE) Urine Nitrite Negative (NEGATIVE) Urine Bilirubin Small H (NEGATIVE) Urine Urobilinogen 0.2 (0.2) EU/dL Ur Leukocyte Esterase Large H (NEGATIVE) Urine RBC 40-50 H (NOT SEEN) /HPF Urine WBC >100 H (NOT SEEN) /HPF Ur Squamous Epith Cells Few H (NEGATIVE) /HPF Amorphous Sediment Moderate Urine Bacteria Few H (NEGATIVE) /HPF Urine Mucus Few H (NEGATIVE) /LPF SARS CoV-2 RNA Rapid CHRISTELLE Negative (NEGATIVE) 08/27/20 08/27/20 08/27/20 Range/Units 13:42 13:42 13:42 WBC (4.0-10.0) x10^3/uL RBC (4.00-5.50) x10^6/uL Hgb (12.0-16.0) g/dL Hct (33.0-47.0) % MCV (78.0-93.0) fL MCH (26.0-32.0) pg MCHC (32.0-36.0) g/dL RDW Coeff of Gabrielle (10.0-15.0) % Plt Count (130-400) x10^3/uL Neut % (Auto) (50.0-80.0) % Lymph % (Auto) (25.0-50.0) % [place] % (Auto) (2.0-11.0) % Eos % (Auto) (0.0-4.0) % Baso % (Auto) (0.2-1.2) % Sodium 138 (136-145) mmol/L Potassium 4.6 (3.5-5.1) mmol/L Chloride 103 (98-107) mmol/L Carbon Dioxide 25 (21-32) mmol/L Anion Gap 14.6 (10-20) mmol/L BUN 34 H D (7-18) mg/dL Creatinine 1.9 H (0.55-1.02) mg/dL Est Cr Clr Drug Dosing TNP Estimated GFR (MDRD) 26 Glucose 128 H (74-106) mg/dL Lactic Acid 4.2 H* (0.4-2.0) mmol/L Calcium 9.1 (8.5-10.1) mg/dL Corrected Calcium 9.82 (8.5-10.1) mg/dL Total Bilirubin 0.3 (0.2-1.0) mg/dL AST 16 (15-37) U/L ALT 15 (14-59) U/L Alkaline Phosphatase 101 (46-116) U/L Troponin I 0.126 H* (<=0.056) ng/mL C-Reactive Protein 7.9 H (<=0.9) mg/dL NT-Pro-B Natriuret Pep 2200 H (<=450) pg/mL Total Protein 7.7 (6.4-8.2) g/dL Albumin 3.1 L (3.4-5.0) g/dL Globulin 4.6 Albumin/Globulin Ratio 0.67 Urine Color (YELLOW) Urine Appearance (CLEAR) Urine pH (5.0-8.0) Ur Specific [place] Urine Protein (NEGATIVE) mg/dL Urine Glucose (UA) (NEGATIVE) mg/dL Urine Ketones (NEGATIVE) mg/dL Urine Occult Blood (NEGATIVE) Urine Nitrite (NEGATIVE) Urine Bilirubin (NEGATIVE) Urine Urobilinogen (0.2) EU/dL Ur Leukocyte Esterase (NEGATIVE) Urine RBC (NOT SEEN) /HPF Urine WBC (NOT SEEN) /HPF Ur Squamous Epith Cells (NEGATIVE) /HPF Amorphous Sediment Urine Bacteria (NEGATIVE) /HPF Urine Mucus (NEGATIVE) /LPF SARS CoV-2 RNA Rapid CHRISTELLE (NEGATIVE) Meds: Medications Generic Name Dose Route Start Last Admin Trade Name Freq PRN Reason Stop Dose Admin Ceftriaxone Sodium 1 gm 08/27/20 13:30 08/27/20 13:41 Rocephin IVPUSH 1 gm Q24H ELLIOTT Administration Sodium Chloride 1,000 mls @ 500 mls/hr 08/27/20 13:30 08/27/20 13:41 Normal Saline IV 150 mls/hr ASDIRECTED ELLIOTT Administration - Re-Assessments/Exams Free Text/Narrative Re-Assessment/Exam: 08/27/20 14:29 Dr. Koo contacted in regards to patient status, need for admission. 1444 Dr. Koo here for admission. Departure - Departure Time of Disposition: 14:45 Disposition: Admitted As Inpatient 67 Condition: Fair Clinical Impression: UTI, Urinary tract infectious disease, Sepsis, CHF, Congestive heart failure Sepsis Event Note (ED) - Focused Exam Vital Signs: Vital Signs Temp Pulse Resp BP Pulse Ox 08/27/20 13:05 99.2 F 104 H 24 H 120/71 3 L - My Orders Last 24 Hours: My Active Orders 08/27/20 13:13 Blood Culture x2 Reflex Set [OM.PC] Stat 08/27/20 13:20 CULTURE BLOOD [BC] Stat 08/27/20 13:30 CULTURE URINE [RM] Stat Sodium Chloride 0.9% [Normal Saline] 1,000 ml IV ASDIRECTED cefTRIAXone [Rocephin] 1 gm IVPUSH Q24H 08/27/20 13:42 CULTURE BLOOD [BC] Stat 08/27/20 14:24 Patient Status Manage Transfer [TRANSFER] Routine - Assessment/Plan Last 24 Hours: My Active Orders 08/27/20 13:13 Blood Culture x2 Reflex Set [OM.PC] Stat 08/27/20 13:20 CULTURE BLOOD [BC] Stat 08/27/20 13:30 CULTURE URINE [RM] Stat Sodium Chloride 0.9% [Normal Saline] 1,000 ml IV ASDIRECTED cefTRIAXone [Rocephin] 1 gm IVPUSH Q24H 08/27/20 13:42 CULTURE BLOOD [BC] Stat 08/27/20 14:24 Patient Status Manage Transfer [TRANSFER] Routine
[2020-08-27] MEDS: Sodium Chloride 0.9% 1,000 ML IV SCH ×3 (13:41→22:43)
[2020-08-27] MEDS: cefTRIAXone 1 GM Vial IVPUSH SCH (13:41)
--- NOTE | 2020-08-27 14:20 | CR ---
[id number] RAD/RAD Chest PA or AP 1V EXAM: FRONTAL CHEST INDICATION: SHORTNESS OF BREATH. COMPARISON: February 05, 2018. DISCUSSION: Cardiomegaly with development of mild central vascular congestion. Possible small right effusion. Chronic elevation of the right hemidiaphragm. Tortuous thoracic aorta. Degenerative changes right shoulder with loose bodies overlying the humeral head. IMPRESSION: 1. Cardiomegaly with development of mild central vascular congestion and possible small right pleural effusion. Jacky Greenberg MD 08/27/20 1412 Thank you for allowing us to participate in the care of your patient.
[2020-08-27 14:31] LABS: ANION GAP 14.6 mmol/L (10-20); CHLORIDE,CL 103 mmol/L (98-107); SODIUM,NA 138 mmol/L (136-145)
[2020-08-27] MEDS: Pantoprazole 40 MG Vial IVPUSH SCH (15:41)
[2020-08-27] MEDS ORDERED: Bisacodyl 10 MG Supp RECTAL PRN (15:45)
[2020-08-27] MEDS ORDERED: Polyethylene Glycol 3350 Powder 17 GM Packet PO PRN (15:45)
[2020-08-27] MEDS ORDERED: Bisacodyl 5 MG Tab PO PRN (15:45)
[2020-08-27] MEDS ORDERED: Ondansetron 4 MG Tab.DIS PO PRN (16:08)
[2020-08-27] MEDS ORDERED: carBAMazepine 100 MG Cap.ER PO SCH (20:00)
--- NOTE | 2020-08-27 20:29 | HP ---
CHIEF COMPLAINT: Lethargic with low blood pressure. HISTORY OF PRESENT ILLNESS: The patient is a 79-year-old patient of Dr. Ivy Olson some . I had received a call about 1:30 that the patient's blood pressure was extremely low. It was around 40/60. She was very lethargic. It had been checked manually as well as with machine. To note, earlier in the day, she has had an emesis at 3:30 in the morning and orders were obtained for Zofran. However, information was obtained at 1:30 that it was a coffee-grounds emesis. The patient has had a remote history of gastritis. She was noted to be much more lethargic than her usual self. The patient is not able to give a history. She was brought over by ambulance. The patient does have cognitive deficits from previous stroke with dementia. To note, the patient had last been admitted with similar circumstances on 04/07/2020, where she had failed outpatient treatment for UTI and she had been dehydrated. When the patient was brought over by ambulance, her blood pressure was 100 systolic, and the first blood pressure in the emergency room was 120; however, she did drop down to 78 systolic in the emergency room. She had been seen by Alma Nolasco, nurse practitioner, and she had been given 500 mL bolus of normal saline as well as Rocephin, and labs have been obtained. MEDICATIONS: The patient is currently on oxygen at 2 L at bedtime, acetaminophen 500 mg 2 times a day, Artificial Tears 1 drop both eyes twice a day, bisacodyl 5 mg tablet by mouth p.r.n. constipation, bisacodyl suppository 10 mg 1 per rectum p.r.n. constipation, Colace 100 mg 1 pill once a day, Cozaar 50 mg 1 pill a day, cranberry tablets 425 one pill a day, cyclobenzaprine 5 mg 1 pill a day for muscle spasms, folic acid 1 mg 1 time a day, levothyroxine 50 mcg 1 pill a day, metoprolol 25 mg 1 pill twice a day, MiraLAX powder 17 g as needed for constipation and 17 g daily for constipation, Neurontin 800 mg 1 pill 3 times a day, omeprazole 20 mg 1 pill twice a day, Remeron 7.5 mg 1 pill a day for mood, Tegretol 200 mg extended release 1 pill twice a day, Tegretol 300 mg 1 pill twice a day, vitamin B12 extended release 1000 mcg 1 pill once a day, Zofran 4 mg 1 pill every 6 hours as needed for vomiting. ALLERGIES: Erythromycin, hydrochlorothiazide, penicillin, trimethoprim, and sulfa antibiotics. PAST MEDICAL HISTORY: The patient has hypertension. She had a CVA on 02/20/2018 with right facial droop and a prior stroke in 2017. She wears an orthotics on her right lower leg, requires assistance. She has had cerebral palsy. 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 PAST SURGICAL HISTORY: She has had a breast biopsy in 1999; it was benign. She has had shortening of her legs, and she has worn a built-up shoe. FAMILY MEDICAL HISTORY: Father is a retired cruz. Sister is Missy Carter and [place]. Her mother has had cataracts. SOCIAL HISTORY: The patient has lived with her parents since she was younger. She moved to [facility], then to [facility] in 1990, until 2013, when she moved to . The patient sees Dr. Mccormack for her seizure disorder. She normally is in a wheelchair. REVIEW OF SYSTEMS: The patient cannot give any history due to her lethargy. She had minimal eye opening in the ER per ER staff. She has not been coughing or short of breath. Oxygen sats have been reduced than normal. PHYSICAL EXAMINATION: Vital Signs: Her temperature is 37.3; pulse is 104; blood pressure had been 120/71 on first coming to the ER, then dropped to 78/35, then improved to 98; respiratory rate is 24; saturations are 92 on 3 L. Her weight is 62.16 kg. General: The patient is lethargic, lying in the emergency room. Skin: [place], warm, and dry. HEENT: Pupils are equal and reactive to light. Mucous membranes are dry. Neck: No anterior cervical lymphadenopathy. Heart: Regular rate and rhythm without murmurs or bruits. Lungs: Do reveal some inspiratory crackles on base. Abdomen: No epigastric tenderness appreciated. No hepatosplenomegaly. Abdomen is soft. Extremities: Lower extremities are slender thin. Neurologic: She is hemiparetic on her right side, was withdrawn. LABORATORY RESULTS: Her COVID test was negative. White blood cell count 10.4, hemoglobin 10.2, hematocrit 32.1, and platelets 398 with 91.5 segs, 3.7 lymphocytes. Sodium 138, potassium 4.6, creatinine 1.9, BUN 34, GFR is 26, glucose 128. Lactic acid elevated at 4.2. LFTs normal. Troponin elevated at 0.126. CRP elevated at 7.9. ProBNP elevated at 2200. Albumin low at 3.1. Urinalysis shows dark turbid urine, protein 100 mg/dL, 15 ketones, moderate amount of blood, small bilirubin, large leukocyte esterase, 40 to 50 red blood cells, greater than 100 white blood cells, few epithelial cells, few bacteria. Chest x-ray shows elevated right hemidiaphragm, some mild vascular congestion noted. EKG shows sinus rhythm with no ST elevation. Her recent lab that had been done at the clinic on 08/11/2020 showed that her ferritin was 59. Her hemoglobin was 11.0, white blood cell count 5.4, hematocrit 35.1, MCV is 101.2, platelets 373. Her TSH was 2.65. Sodium is 142, potassium 4.3, creatinine 1.0, BUN 28, glucose 115, GFR 53. IMPRESSION: 1. Sepsis. 2. Urinary tract infection. 3. Hypotension. 4. Congestive heart failure exacerbation. 5. Elevated troponin. 6. Upper gastrointestinal bleed suspected. 7. Seizure disorder. 8. Dementia. 9. Dehydration. 10.Cerebral palsy. 11.Cerebrovascular disease. PLAN: The patient is admitted to acute care. She will be given fluid resuscitation. She had been given Rocephin 1 g in the emergency room, and this will be continued. We will monitor serial troponins on her. We will monitor serial lactic acid on her. We will hold her Cozaar for the time-being. We will place her on a Protonix drip. We will not place her on medications for DVT prophylaxis because of concerns with active GI bleeding, but she will have knee- high compression hosiery. She will continue on oxygen supplementation. We will place her on telemetry. She will have a Hinojosa catheter placed for more accurate I and Os for her. The patient could possibly from current health illness with her severe sepsis. To note, the patient's status is do not resuscitate/do not intubate. If she would become more hypotensive and septic, she would require pressors and may require transfer to a higher level hospital; however, since her referral hospital has been quite high, so would prefer to try to treat here. GM08/27/2020 15:45:11 MODL: 08/27/2020 20:23:09 /[id number]
[2020-08-27] MEDS ORDERED: Gabapentin 400 MG Cap PO ONE (20:45)
[2020-08-27] MEDS: Hypromellose 0.3% Ophth Soln 15 ML Bottle EYEBOTH SCH (20:58)
[2020-08-27] MEDS: Metoprolol Tartrate 25 MG Tab PO SCH (20:59)
[2020-08-27] MEDS: Mirtazapine 15 MG Tab PO SCH (21:00)
[2020-08-27] MEDS: Acetaminophen 500 MG Tab PO SCH (21:01)
[2020-08-28] MEDS: Pantoprazole 40 MG Vial IVPUSH SCH ×2 (02:52→16:23)
[2020-08-28] MEDS: Sodium Chloride 0.9% 1,000 ML IV SCH (02:59)
[2020-08-28] MEDS ORDERED: Furosemide 20 MG/2 ML VIAL IV ONE (05:19)
[2020-08-28] MEDS: Levothyroxine 50 MCG Tab PO SCH (06:50)
[2020-08-28 07:39] LABS: ANION GAP 11.9 mmol/L (10-20)
[2020-08-28] MEDS: Acetaminophen 500 MG Tab PO SCH ×2 (08:40→19:56)
[2020-08-28] MEDS: Gabapentin 400 MG Cap PO SCH ×3 (08:40→19:59)
[2020-08-28] MEDS: carBAMazepine 100 MG Cap.ER PO SCH ×2 (08:40→19:56)
[2020-08-28] MEDS: Metoprolol Tartrate 25 MG Tab PO SCH ×3 (08:41→19:57)
[2020-08-28] MEDS: Hypromellose 0.3% Ophth Soln 15 ML Bottle EYEBOTH SCH ×2 (08:41→19:54)
--- NOTE | 2020-08-28 09:25 | CR ---
[id number] RAD/RAD Chest PA or AP 1V EXAM: FRONTAL CHEST INDICATION: CHF FOLLOW-UP. COMPARISON: February 05, 2018. DISCUSSION: The heart is mildly enlarged with development of mild central vascular congestion and possible small right pleural effusion. Peripheral infiltrates or not excluded on the right. Moderate elevation of the right hemidiaphragm has increased. Chronic healed right rib fractures. IMPRESSION: 1. Mild congestive heart failure with mild edema and possible small right effusion. 2. Early peripheral right upper lobe infiltrates are not excluded. Jacky Greenberg MD 08/28/20 0924 Thank you for allowing us to participate in the care of your patient.
--- NOTE | 2020-08-28 10:47 | PN ---
Progress Note for CHERYLE JAMES Date: 08/28/2020 Room #: VM.203 SUBJECTIVE: This is hospital day #2 on a 79-year-old admitted with sepsis and vomiting due to a gram-negative UTI. She has been afebrile, but her white count did increase. She is much more alert today and has taken in some Jell-O last evening. She has had good urine output almost 1000 since admission. She has had a bowel movement. She is denying any pain or cough or breathing issues; however, she was on 8 L of oxygen, just turned down to 4 L, saturating around 92%. Due to her respiratory distress, she got a dose of IV Lasix early this morning and repeat chest x-ray is showing significant fluid. Fluid was given to resuscitate for significantly low blood pressures in the 80s, even 72/35. OBJECTIVE: Vital Signs: Her temperature is 97.4, pulse 108, blood pressure 102/56, respiratory rate 18, O2 of 96% on room air, weight is 57.8 kg, O2 of 92% on 4 L. General: She is in no acute distress. Heart: Regular rate and rhythm. Lungs: Sounds are decreased in both bases with crackles. Upper lungs are clear. Abdomen: Nondistended, nontender. Extremities: Warm and dry. No edema. She does have some atrophy due to her underlying cerebral palsy. She is able to answer some simple questions with yes or no. LABORATORY DATA: Lab work shows white count 14, hemoglobin down to 7.7, and platelets are 314. Sodium 141, potassium 3.9, chloride 110, bicarb 23, BUN 32, creatinine down to 1.5, glucose 122. Lactic improved down to 3.1 yesterday. Calcium 8.2. ALT and AST 11 and 14. Troponin normal now 0.024. ProBNP up to 7000. CRP 27.9, albumin 2.4. Again, urine is growing the gram-negative rods and gram-positive cocci. The patient has a history of recurrent UTIs. ASSESSMENT: 1. Sepsis due to a gram-negative urinary tract infection. She is doing IV Rocephin. She is afebrile. White count went up, but she had been under significant stress. We will repeat tomorrow. 2. Acute on chronic anemia, possibly due to some hemodilution, but there was report of a coffee-ground emesis initially. She has not had ongoing bleeding. We will repeat a hemoglobin later today and transfuse if hemoglobin is less than 7. Discussed with her sister. 3. Non ST-elevation myocardial infarction, possibly due to hypotension and stress from her current infection. Troponin is now normal. She cannot have any heparin or Lovenox due to her concern for gastrointestinal bleeding. She is on a beta-franky. We will lower the dose, so that we can give it safely given her hypotension. Given her age and palliative care goals, I will not start her on any statins. 4. Cerebral palsy, stable. 5. Seizure disorder. We will try to get her medications in as she is more alert and swallowing. 6. Acute renal failure, probably due to acute illness, improving. We stopped IV fluids. We will hold on further Lasix. 7. Moderate malnutrition. 8. Essential hypertension, now hypotensive. 9. History of methicillin-resistant Staphylococcus aureus. 10.Urinary incontinence and need for strict I's and O's. We will continue the catheter. 11.Hypothyroidism, treated. PLAN: The patient will continue on acute cares. We will continue with IV Rocephin. We will continue holding her blood pressure pills, but try to give her metoprolol due to tachycardia. Discussed she may need a transfusion, especially if she remains tachycardic later today. We will repeat lab work tomorrow and a hemoglobin this afternoon. For DVT prophylaxis, she is on SCDs. MKA: 08/28/2020 09:28:38 MODL: 08/28/2020 10:40:52 /[id number]
[2020-08-28] MEDS: cefTRIAXone 1 GM Vial IVPUSH SCH (13:32)
[2020-08-28] MEDS: Mirtazapine 15 MG Tab PO SCH (19:58)
[2020-08-29] MEDS: Pantoprazole 40 MG Vial IVPUSH SCH ×2 (03:36→15:25)
[2020-08-29] MEDS ORDERED: Albuterol 0.083% 2.5 MG/3 ML Neb Soln NEB ONE (05:24)
[2020-08-29] MEDS: Acetaminophen 500 MG Tab PO SCH ×3 (05:55→20:52)
[2020-08-29] MEDS: Levothyroxine 50 MCG Tab PO SCH (06:40)
[2020-08-29] MEDS: Metoprolol Tartrate 25 MG Tab PO SCH ×3 (06:40→20:55)
--- NOTE | 2020-08-29 06:43 | PCM.SN.2 ---
- Free Text/Narrative Note: S: Called by nurse early this morning due to patient being in respiratory distress. Patient can only answer simple yes/no questions due to prior CVA and underlying dementia. Answers yes to being short of breath, no to chest pain. Is not coughing. Has not had any fever in the past 24 hours. I had given an order for a neb treatment due to wheezing heard by the nurse; it was felt this resulted in little improvement so I did come in to see the patient. O: Vitals reviewed. Patient is resting in bed. Mildly tachypneic but otherwise not in any respiratory distress. Lungs are now CTAB. Heart with tachycardia but regular rhythm; normal S1 and S2. Abdomen soft, nontender, nondistended. No pedal edema. A/P: #1 Respiratory distress, resolved #2 Tachycardia - Patient is doing much better after the neb. - Lungs are clear and she has no leg edema; therefore, I do not feel she would benefit from an urgent dose of lasix this morning. - Will have the nurse give her am metoprolol slightly early to see if this will improve her tachycardia. - Labs are also pending this morning and depending on her hemoglobin, she may need a blood transfusion. - Tachycardia is not felt to be sepsis related in the absence of a recurrent fever and the fact that she is on appropriate antibiotics at this time.
[2020-08-29 07:26] LABS: ANION GAP 15.6 mmol/L (10-20)
[2020-08-29] MEDS: Hypromellose 0.3% Ophth Soln 15 ML Bottle EYEBOTH SCH ×2 (08:04→20:54)
[2020-08-29] MEDS: Gabapentin 400 MG Cap PO SCH ×3 (08:05→20:50)
[2020-08-29] MEDS: carBAMazepine 100 MG Cap.ER PO SCH ×2 (08:05→20:52)
[2020-08-29] MEDS ORDERED: Albuterol 2.5 MG/0.5 ML UD Neb NEB PRN (08:10)
--- NOTE | 2020-08-29 10:05 | PN ---
Progress Note for CHERYLE JAMES Date: 08/29/2020 Room #: VM.203 SUBJECTIVE: This is hospital day #3 on a 79-year-old admitted with sepsis and vomiting due to a gram-negative UTI. Then, she got IV fluids and had a mild heart failure exacerbation, then she got Lasix and was hypotensive. She has continued to be tachycardic, but was able to take her 12.5 of metoprolol b.i.d. This morning, she had an episode of respiratory distress. It was relieved by a neb. Her heart rate was 123 and her metoprolol was given earlier. She states she is feeling okay now. She does feel she is getting better. She has had no fevers. Her T-max though was 99.4 around the time of the event this morning. She is denying pain, but she is holding her hand over her stomach. Yesterday, she was weaned down to 2 L of oxygen, but now is back up to 4 L. She is coughing when we are in the room. X-ray yesterday was showing fluid. We held off on further IV fluids and currently, she is not on Lasix. She is also on day #3 of IV Rocephin, but she has a history of MRSA. OBJECTIVE: Vital Signs: Her temperature 99.4, pulse 92, blood pressure 123/67, respiratory rate 22, O2 of 94% on 4 L. General: She is in no acute distress. Heart: Regular rate and rhythm. S1, S2 without murmur. Lungs: Sounds are decreased over that right lung. Left lung has fine crackles in the base. Good air movement in both upper lungs. Abdomen: Nondistended. Positive bowel sounds. Nontender. Extremities: No edema. Mental Status: She is alert. She answers most questions yes or no, but we did not get her to answer more detailed questions. LABORATORY DATA: Lab work shows white count down to 12. Hemoglobin 7.7, it was up to 8.1 yesterday afternoon. Platelets 279. Sodium 142, potassium 3.6, chloride 108, bicarb 22, BUN 27, creatinine 1.3, glucose 131, lactic 1, calcium 8. TSH mildly elevated 4.1. ASSESSMENT AND PLAN: 1. Sepsis due to urinary tract infection with concern for also pneumonia. We will repeat her chest x-ray today. We will continue IV Rocephin for now as she is improving. 2. Acute hypoxic respiratory failure. We will reorder her nebulizers. Her respiratory status is improving again. 3. Sinus tachycardia. This has improved with her metoprolol dosing. If blood pressures stay normal, we will increase her back up to home dose of 25 b.i.d. 4. Tvssg-ec-bgczlbq anemia. She has not had any active bleeding. We will continue to follow hemoglobins. No indication for transfusion. 5. Aiq-HT-ocngzpfge myocardial infarction. Due to hypertension and stress from her infection, her troponins have decreased. 6. Heart failure exacerbation due to IV fluids given. She did get a dose of Lasix. At this point, we have not continued with further IV Lasix, but we will see what her chest x-ray looks like today. 7. Cerebral palsy, stable. 8. Seizure disorder. She is on her home medications. 9. Acute renal failure due to her acute illness. Her creatinine has improved down to 1.3. 10.Moderate malnutrition. 11.Essential hypertension, controlled. 12.History of methicillin-resistant Staphylococcus aureus, colonization. 13.Urinary tract infection and urinary incontinence. We have a Hinojosa in for strict I's and O's. We will likely remove later today. 14.Hypothyroidism, treated. PLAN: The patient will continue acute cares with IV Rocephin. We will repeat a chest x-ray today. For DVT prophylaxis, she is on SCDs due to concern for anemia and bleeding. MKA: 08/29/2020 08:55:56 MODL: 08/29/2020 09:59:17 /[id number]
--- NOTE | 2020-08-29 13:07 | CR ---
[id number] RAD/RAD Chest PA or AP 1V EXAM: FRONTAL CHEST INDICATION: COUGH. COMPARISON: August 28, 2020. DISCUSSION: Hyperinflation of the left lung suggests underlying COPD. There is chronic moderate elevation of the right hemidiaphragm with associated volume loss in the right lung base. There is also volume loss in the left lung base. Patchy right lung and possible mild left base infiltrates. Stable cardiomegaly with interval improved central vascular congestion. IMPRESSION: 1. There is stable cardiomegaly with interval improvement in central vascular ingestion. 2. Mild patchy multifocal right lung and possible mild left base infiltrates. Jacky Greenberg MD 08/29/20 0251 Thank you for allowing us to participate in the care of your patient.
[2020-08-29] MEDS: cefTRIAXone 1 GM Vial IVPUSH SCH (13:11)
[2020-08-29] MEDS: Sodium Chloride 0.9% 10 ML Syringe IV PRN ×3 (13:11→21:22)
--- NOTE | 2020-08-29 13:19 | CT ---
[id number] CT/CT Chest Abdomen Pelvis WO IV EXAM: CHEST ABDOMEN AND PELVIS CT WITHOUT CONTRAST INDICATION: URINARY TRACT INFECTION. COMPARISON: Chest radiograph same date. DISCUSSION: This evaluation is limited by motion artifact. Findings are within this limitation. Evaluation of the right lung is somewhat limited by chronic elevation of the right hemidiaphragm with volume loss in the right middle and lower lobes. Groundglass infiltrates and consolidation in the right upper and lower lobes and mild scattered groundglass opacities and infiltrates in the left upper and lower lobes are most consistent with pneumonia. Mild dependent atelectasis in the left lower lobe. Moderate hiatus hernia. Mild cardiomegaly. Trace left pleural effusion. No right effusion or pericardial effusion. A 13 mm hepatic hypodensity adjacent to the diaphragm is indeterminate by density. The liver is otherwise normal in appearance. A staghorn calculus in the left renal pelvis and extending into multiple calyces contributes to moderate hydronephrosis. Calculus is irregular in shape, but measures about 23 x 20 x 15 mm. There are other small nonobstructing calculi in the mid to lower pole on the right and in the lower pole on the left. The urinary bladder is decompressed by a Hinojosa catheter. Mild chronic L1 compression fracture. Unenhanced images of the pancreas, spleen, adrenal glands, gallbladder and bowel are normal in appearance. No adenopathy, free air free fluid. IMPRESSION: 1. Right greater than left-sided consolidation and groundglass infiltrates compatible with pneumonia. 2. A staghorn calculus in the right renal pelvis and multiple calyces results in moderate right hydronephrosis. Jacky Greenberg MD 08/29/20 2123 Thank you for allowing us to participate in the care of your patient.
[2020-08-29] MEDS: Mirtazapine 15 MG Tab PO SCH (20:53)
[2020-08-30] MEDS: Pantoprazole 40 MG Vial IVPUSH SCH ×2 (03:58→14:53)
[2020-08-30] MEDS: Levothyroxine 50 MCG Tab PO SCH (06:40)
[2020-08-30 06:58] LABS: ANION GAP 13.5 mmol/L (10-20)
[2020-08-30] MEDS: Hypromellose 0.3% Ophth Soln 15 ML Bottle EYEBOTH SCH ×2 (08:13→20:04)
[2020-08-30] MEDS: carBAMazepine 100 MG Cap.ER PO SCH ×2 (08:14→20:04)
[2020-08-30] MEDS: Metoprolol Tartrate 25 MG Tab PO SCH ×2 (08:14→20:07)
[2020-08-30] MEDS: Gabapentin 400 MG Cap PO SCH ×3 (08:15→20:05)
[2020-08-30] MEDS: Acetaminophen 500 MG Tab PO SCH ×2 (08:15→20:06)
[2020-08-30] MEDS ORDERED: Furosemide 20 MG/2 ML VIAL IVPUSH ONE (08:43)
[2020-08-30] MEDS: Sodium Chloride 0.9% 10 ML Syringe IV PRN ×3 (09:05→14:53)
[2020-08-30] MEDS: Potassium Chloride 10 MEQ Tab.ER PO SCH (09:22)
[2020-08-30] MEDS: cefTRIAXone 1 GM Vial IVPUSH SCH (12:31)
--- NOTE | 2020-08-30 19:49 | PN ---
Progress Note for CHERYLE JAMES Date: 08/30/2020 Room #: VM.203 SUBJECTIVE: This is hospital day #4 on a 79-year-old admitted with vomiting and sepsis secondary to a UTI. Cultures were showing Proteus. The patient was sort of grimacing. There was some concern for abdominal pain. She does have underlying dementia and can verbalize things, but did not really report abdominal pain. She is getting Tylenol. Yesterday, she underwent a CT, which showed a staghorn calculus in the right renal pelvis extending into multiple calices contributing to moderate hydronephrosis. The patient has been afebrile. She has been getting IV Rocephin. Her culture is susceptible. She has required oxygen ever since she was given IV fluids for resuscitation. She has required some Lasix initially as well. She also has some right greater than left consolidations in the lungs that were seen on CT. Otherwise, the patient is alert. She is taking her pills this morning. She is drinking some pop with the help of the nurse through a straw. She was not choking on it. She has not had any black stools reported, but hemoglobin did drop down to 6.8 today. Her initial presentation did have some coffee-ground emesis. OBJECTIVE: Vital Signs: Her weight is 53.8 kg, pulse 85, temperature 97.4, blood pressure 112/58, respiratory rate 17, and O2 of 95% on 5 L. General: She is in no acute distress. Heart: Regular rate and rhythm. S1, S2 without murmur. Lungs: Sounds decreased with crackles in both bases. Abdomen: Nondistended, nontender. Extremities: Warm and dry. No edema. No flank pain noted. Mental Status: She is alert. LABORATORY WORK: Today did show her white count to normalize down to 6.7, hemoglobin 6.8, platelets 267. Sodium 143, potassium 3.5, chloride 109, bicarb 24, BUN 21, creatinine down to 1.2, calcium 8.7. ASSESSMENT: 1. Sepsis due to a Proteus urinary tract infection with staghorn right renal calculus. Sepsis is improving. 2. Proteus urinary tract infection, on intravenous antibiotics, day #4. We will continue intravenous Rocephin. 3. Acute on chronic anemia with concern for gastritis and gastrointestinal bleeding. We will give her 1 unit of packed red blood cells today and repeat a hemoglobin tomorrow. 4. Hypoxic respiratory failure secondary to fluids she has been given. We will give her some intravenous Lasix after the blood. Her blood pressures are above 100 now and should tolerate it. 5. Non ST-elevation myocardial infarction due to the stress from her infection and possible gastrointestinal bleeding. Her troponin is now normal. 6. Acute heart failure exacerbation due to intravenous fluids given during resuscitation for sepsis. She has no echo on file. She has not required daily diuresis. We will continue to monitor. 7. Cerebral palsy, stable. 8. Seizure disorder. She is on home medications. 9. Acute renal failure due to acute illness, resolved. 10.Moderate malnutrition. 11.Essential hypertension, controlled. 12.History of methicillin-resistant Staphylococcus aureus colonization. We are still following her urine culture, but I feel the Proteus was the primary source. 13.Hypothyroidism, treated. PLAN: The patient will continue acute cares with IV Rocephin. She will get a blood transfusion and IV Lasix today. We will repeat lab work tomorrow and anticipate she could be sent back to the [facility] as soon as tomorrow. Did discuss with Urology the options include surgical removal of the kidney versus long-term antibiotics. Had already discussed this with her sister yesterday and no surgery is planned given the patient's age and other comorbidities plus I do not think she is in any critical pain from the stones, but at risk for further infections. We will continue her on scheduled Tylenol. MKA: 08/30/2020 09:12:36 MODL: 08/30/2020 19:44:55 /[id number]
[2020-08-30] MEDS: Mirtazapine 15 MG Tab PO SCH (20:05)
[2020-08-31] MEDS: Pantoprazole 40 MG Vial IVPUSH SCH (03:10)
[2020-08-31] MEDS: Levothyroxine 50 MCG Tab PO SCH (06:27)
[2020-08-31 06:49] LABS: ANION GAP 15.4 mmol/L (10-20)
[2020-08-31] MEDS: Sodium Chloride 0.9% 10 ML Syringe IV PRN ×2 (08:12→09:56)
[2020-08-31] MEDS: Hypromellose 0.3% Ophth Soln 15 ML Bottle EYEBOTH SCH (08:12)
[2020-08-31] MEDS: Acetaminophen 500 MG Tab PO SCH (08:13)
[2020-08-31] MEDS: carBAMazepine 100 MG Cap.ER PO SCH (08:13)
[2020-08-31] MEDS: Gabapentin 400 MG Cap PO SCH (08:13)
[2020-08-31] MEDS: Metoprolol Tartrate 25 MG Tab PO SCH (08:13)
[2020-08-31] MEDS: Potassium Chloride 10 MEQ Tab.ER PO SCH (08:13)
[2020-08-31] MEDS ORDERED: cefTRIAXone 1 GM Vial IVPUSH SCH (08:45)
[2020-08-31] MEDS ORDERED: Cephalexin 250 MG Cap PO SCH ×2 (08:45→20:00)
[2020-08-31 10:58] VITALS: BP 121/69; PULSE 86
[2020-08-31] MEDS ORDERED: Amoxicillin/Clavulanate K 500-125 MG Tab PO SCH (20:00)
--- NOTE | 2020-08-31 21:49 | DISCH ---
PRIMARY DISCHARGE DIAGNOSES: 1. Sepsis secondary to a Proteus urinary tract infection with staghorn calculus. 2. Bilateral pneumonia due to aspiration from vomiting. 3. Recurrent urinary tract infections due to Proteus and Aerococcus in the setting of staghorn right renal calculus. 4. Acute on chronic anemia, likely related to gastritis, but no acute gastrointestinal bleeding. Given 1 unit of packed red blood cells with hemoglobin up to 9.9 on discharge. She is on a proton pump inhibitor. 5. Rhy-XH-yjfrizlff myocardial infarction due to stress from her infection and anemia. Troponins normalized. She never had any chest pain. 6. Acute on chronic heart failure exacerbation. The patient did receive intravenous Lasix. She went into heart failure due to fluids given for resuscitation of sepsis. She also got some Lasix after her blood transfusion. No echo on file. No echo planned for this patient. 7. Cerebral palsy, chronic and stable. 8. Seizure disorder, stable on home medications. 9. Acute renal failure. Due to her acute illness, her creatinine was up to 1.9 on admission and came down to 1.2 on discharge. 10.Moderate malnutrition. 11.Essential hypertension with hypotension, which was limiting her diuresis. Blood pressures improved on discharge. 12.Hypothyroidism, treated. TSH was around 4, nearly normal. 13.History of methicillin-resistant Staphylococcus aureus colonization. No methicillin-resistant Staphylococcus aureus was found in her urine. REASON FOR ADMISSION: On the date of admission, this 79-year-old female was vomiting during the night and was found to be hypotensive, tachycardic, and febrile, so was sent over for further treatment. On arrival, the patient did have an elevated troponin and her lactic acid was 4.2. The patient received IV fluid rehydration. The lactic acid eventually normalized, but her proBNP went up from 2200 to 7000, and she was requiring more oxygen up to 15 L non- rebreather. The patient responded to diuresis with IV Lasix. She also received some nebulizers. At no time did the patient actually complain of abdominal pain, but given that she had Proteus and some blood in her urine, we did do a CT scan which showed the right renal staghorn calculus. I discussed with the specialist, who made recommendations to continue antibiotic for further suppression of UTIs and other option would be to remove the kidney, which I did talk to her sister and I do not recommend her to go through that surgery. Otherwise, the patient had improvement in breathing. She was able to be weaned down to 3 L. She was treated with IV Rocephin even though there was concern for aspiration. She does carry allergies to penicillin, and with seizure disorder, wanted to avoid Flagyl. The patient received 5 full days of IV Rocephin and will be discharged on oral Keflex twice daily for the rest of her life unless antibiotics need to be adjusted based on cultures. The patient was alert. She was smiling. She was tolerating a breakfast. Did go on a clear liquid diet initially due to the vomiting, but she had no further vomiting. She had a Hinojosa catheter also. DISCHARGE PLANS AND INSTRUCTIONS: The patient is being discharged back to [facility]. I will see her on her next rounds. She had a COVID test that was negative prior to discharge. She will go on Keflex 250 b.i.d. forever basically until any changes need to be made. She will be on 3 L of oxygen to keep sats over 90%. She will have mag, CBC, and BMP in 2 weeks' time. She will have PT, OT, and speech at the [facility]. PHYSICAL EXAMINATION: Discharging Vitals: Included temperature of 98.1, pulse 86, blood pressure 121/69, respiratory rate 17, O2 of 95% on 3 L. Weight 53.8 kg. General: She is in no acute distress. Heart: Regular rate and rhythm. S1, S2 without murmur. Lungs: Sounds are clear to auscultation in the upper lungs, but decreased in both bases, but no crackles or wheezes. Abdomen: Has positive bowel sounds. It is soft, nontender, nondistended. She has no flank pain. Extremities: Warm and dry. No edema. She has some contracture changes over her right side, which is not new. Mental Status: She is alert. She is oriented. She seems to realize she is in the hospital and looks forward to going home. Greater than 30 minutes spent on this discharge process. MKA: 08/31/2020 14:05:23 MODL: 08/31/2020 21:37:59 /[id number]
== END 2020-08-31 12:16 | disposition home or self-care (01) | DRG 871 ==
LOC: VM.ED 13:01 → VM.MS 14:25
PROVIDERS: ADMIT Family Medicine; ATTEND Internal Medicine
DX: A41.9 Sepsis, unspecified organism (principal); A41.59 Other Gram-negative sepsis; J69.0 Pneumonitis due to inhalation of food and vomit; H04.129 Dry eye syndrome of unspecified lacrimal gland; I10 Essential (primary) hypertension; I21.4 Non-ST elevation (NSTEMI) myocardial infarction; K21.9 Gastro-esophageal reflux disease without esophagitis; R32 Unspecified urinary incontinence; Z87.440 Personal history of urinary (tract) infections; J96.01 Acute respiratory failure with hypoxia; G89.29 Other chronic pain; I69.351 Hemiplegia and hemiparesis following cerebral infarction affecting right dominant side; I69.320 Aphasia following cerebral infarction; N39.0 Urinary tract infection, site not specified; N17.9 Acute kidney failure, unspecified; E44.0 Moderate protein-calorie malnutrition; G81.01 Flaccid hemiplegia affecting right dominant side; Z20.828 Contact with and (suspected) exposure to other viral communicable diseases; L30.9 Dermatitis, unspecified; N20.0 Calculus of kidney; Z98.890 Other specified postprocedural states; Z82.0 Family history of epilepsy and other diseases of the nervous system; Z82.62 Family history of osteoporosis; D64.9 Anemia, unspecified; K29.70 Gastritis, unspecified, without bleeding; G40.909 Epilepsy, unspecified, not intractable, without status epilepticus; E03.9 Hypothyroidism, unspecified; G80.9 Cerebral palsy, unspecified; K59.09 Other constipation; I50.9 Heart failure, unspecified; M81.0 Age-related osteoporosis without current pathological fracture; I11.0 Hypertensive heart disease with heart failure; F03.90 Unspecified dementia, unspecified severity, without behavioral disturbance, psychotic disturbance, mood disturbance, and anxiety; I67.9 Cerebrovascular disease, unspecified; R00.0 Tachycardia, unspecified; Z86.14 Personal history of Methicillin resistant Staphylococcus aureus infection; Z88.1 Allergy status to other antibiotic agents; Z88.0 Allergy status to penicillin; Z88.2 Allergy status to sulfonamides; Z88.8 Allergy status to other drugs, medicaments and biological substances; Z79.890 Hormone replacement therapy; Z79.899 Other long term (current) drug therapy; Z68.22 Body mass index [BMI] 22.0-22.9, adult
CPT/HCPCS: 36415; 36430; 71045; 71250; 74176; 80048; 80053; 81001; 83605; 83880; 84443; 84484; 85014; 85018; 85025; 86140; 86850; 86900; 86901; 86920; 86922; 87040; 87086; 87088; 87186; 93005; 94640; 94760; A9270-GY; C9113; J0696; J1940; J7030; J7613-GY; P9016; U0002

== ENCOUNTER 2021-04-16 12:49 | Emergency (ER) | payer MEDICARE, MEDICAID ==
--- NOTE | 2021-04-16 13:30 | EDM.PDOC ---
ED HPI GENERAL MEDICAL PROBLEM - General Time Seen by Provider: 04/16/21 13:29 Source of Information: Reports: Patient, EMS, EMS Notes Reviewed, Retirement Records, Provider (Dr. Ivy Olson), RN, RN Notes Reviewed - History of Present Illness INITIAL COMMENTS - FREE TEXT/NARRATIVE: Patient is a 80-year-old female who presents to ER per [facility] with complaint of vomiting episodes this morning. Patient states she does have some epigastric pain, rates the pain 3/10. Patient states she has vomited this morning, Zofran was given, and no vomiting episodes since then. EMS reports patient had eaten when they arrived to pick the patient up. Patient denies any diarrhea. States she has had a cough recently. Denies any fever chills that she is aware of, denies chest pains or shortness of breath. Patient is slow to respond and bedridden due to previous stroke. Previous records show chronic anemia, and frequent UTIs. Onset: Today - Related Data Allergies Allergy/AdvReac Type Severity Reaction Status Date / Time erythromycin base Allergy cannot Verified 08/27/20 14:15 [Erythromycin Base] remember] hydrochlorothiazide Allergy Cannot Verified 08/27/20 14:15 Remember Penicillins Allergy Cannot Verified 08/27/20 14:15 Remember Sulfa (Sulfonamide Allergy Cannot Verified 08/27/20 14:15 Antibiotics) Remember trimethoprim Allergy Cannot Verified 08/27/20 14:15 Remember Home Meds: Home Meds Acetaminophen 500 mg PO BID 05/18/19 [History] Cranberry Fruit Extract [Cranberry] 425 mg PO DAILY 05/18/19 [History] Cyanocobalamin (Vitamin B12) [Vitamin B12] 1,000 mcg PO DAILY 05/18/19 [History] Cyclobenzaprine [Flexeril] 5 mg PO DAILY 05/18/19 [History] Folic Acid 1 mg PO DAILY 05/18/19 [History] Gabapentin [Neurontin] 800 mg PO TID 05/18/19 [History] Levothyroxine [Synthroid] 50 mcg PO DAILY 05/18/19 [History] Losartan [Cozaar] 50 mg PO DAILY 05/18/19 [History] Metoprolol Tartrate 25 mg PO BID 05/18/19 [History] carBAMazepine [Carbamazepine ER] 200 mg PO BID 05/18/19 [History] polyethylene glycoL 3350 [MiraLAX] 1 packet PO DAILY 05/18/19 [History] Mirtazapine [Remeron] 7.5 mg PO BEDTIME #15 tab.dis 04/11/20 [Rx] Omeprazole 20 mg PO BIDAC cap.cr 04/11/20 [Rx] Bisacodyl [Laxative Suppository] 10 mg RECTAL DAILY PRN 08/27/20 [History] Carboxymethylcellulose Sodium [Artificial Tears] 1 drop EYEBOTH BID 08/27/20 [History] Docusate Sodium [Colace] 100 mg PO DAILY 08/27/20 [History] Ondansetron [Zofran] 4 mg PO Q6HR PRN 08/27/20 [History] bisacodyL [Dulcolax] 5 mg PO DAILY PRN 08/27/20 [History] polyethylene glycoL 3350 [MiraLAX] 17 gm PO DAILY PRN 08/27/20 [History] carBAMazepine [TEGretol XR] 300 mg PO BID 08/28/20 [History] Albuterol [Proventil Neb Soln] 2.5 mg NEB Q4HRRT PRN neb 08/31/20 [Rx] Potassium Chloride [Klor-Con 10] 10 meq PO DAILY #30 tab.er 08/31/20 [Rx] cephALEXin [Keflex] 250 mg PO BID #60 cap 08/31/20 [Rx] Levofloxacin 250 mg PO DAILY 10 Days #10 tablet 04/16/21 [Rx] Past Medical History HEENT History: Reports: Cataract, Other (See Below) Other HEENT History: Dry Eyes Cardiovascular History: Reports: Hypertension Respiratory History: Reports: None Gastrointestinal History: Reports: Chronic Constipation, GERD Genitourinary History: Reports: Urinary Incontinence, UTI, Recurrent BLEACH 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 Flaccid Hemiplegia affecting right dominant side Neurological History: Reports: Cerebral Palsy, Seizure, Other (See Below) Other Neuro History: Aphasia (following unspecified Cerebrovascular Disease), flaccid hemiplegia affecting right dominant side, localization-related symptomatic epilepsy and epileptic syndromes with complex partial seizures, not intractable, without status epilepticus Psychiatric History: Reports: Other (See Below) Other Psychiatric History: Unspecified Dementia Endocrine/Metabolic History: Reports: Hypothyroidism, Osteoporosis Other Endocrine/Metabolic History: hypomagnesemia. hypercalcemia Hematologic History: Reports: Anemia Dermatologic History: Reports: Eczema, Other (See Below) Other Dermatologic History: contact dermatitis - Infectious Disease History Infectious Disease History: Reports: MRSA Other Infectious Disease History: hx of mrsa and ltc isolation - Past Surgical History HEENT Surgical History: Reports: None Cardiovascular Surgical History: Reports: None Oncologic Surgical History: Reports: Biopsy of Breast Social & Family History - Family History Family Medical History: No Pertinent Family History Cardiac: Reports: None Respiratory: Reports: None GI: Reports: None Musculoskeletal: Reports: Osteoporosis Neurological: Reports: Cerebral Palsy, Seizure Endocrine/Metabolic: Reports: Osteoporosis Hematologic: Reports: Anemia Dermatologic: Reports: Eczema Oncologic: Reports: None - Caffeine Use Caffeine Use: Reports: None ED ROS GENERAL - Review of Systems Review Of Systems: Comprehensive ROS is negative, except as noted in HPI. ED EXAM, GI/ABD - Physical Exam Exam: See Below Exam Limited By: Physical Impairment (Hx stroke, difficulty with speech, slow to respond) General Appearance: Alert, WD/WN, No Apparent Distress Eyes: Bilateral: Normal Appearance, EOMI Ears: Normal External Exam, Hearing Grossly Normal Nose: Normal Inspection Throat/Mouth: Normal Inspection, Normal Voice, No Airway Compromise Head: Atraumatic, Normocephalic Neck: Limited Range of Motion Respiratory/Chest: No Respiratory Distress, No Accessory Muscle Use, Chest Non- Tender, Decreased Breath Sounds, Crackles (bases bilaterally) Cardiovascular: Normal Peripheral Pulses, Regular Rate, Rhythm, No Edema, No Gallop, No JVD, No Murmur, No Rub GI/Abdominal Exam: Normal Bowel Sounds, Soft, No Organomegaly, No Distention, No Abnormal Bruit, No Mass, Pelvis Stable, Tender (epigastrum) (Female) Exam: Deferred Rectal (Female) Exam: Deferred Back Exam: Normal Inspection, Decreased Range of Motion Extremities: Normal Inspection, Non-Tender, No Pedal Edema, Normal Capillary Refill, Limited Range of Motion Neurological: Alert, Oriented, Slow to Respond Psychiatric: Normal Affect, Normal Mood Skin Exam: Warm, Dry, Intact, No Rash, Pallor Lymphatic: No Adenopathy Course - Orders/Labs/Meds Orders: Active Orders 24 hr Category Date Time Status EKG Documentation Completion [RC] STAT Care 04/16/21 13:02 Active CULTURE BLOOD [BC] Stat Lab 04/16/21 13:22 Received CULTURE BLOOD [BC] Stat Lab 04/16/21 13:26 Received CULTURE URINE [RM] Stat Lab 04/16/21 13:45 Received Sodium Chloride 0.9% [Normal Saline] 1,000 ml Med 04/16/21 14:26 Active IV ONETIME Blood Culture x2 Reflex Set [OM.PC] Stat Oth 04/16/21 13:00 Ordered Medication Orders Sodium Chloride (Normal Saline) 1,000 mls @ 200 mls/hr IV ONETIME ONE Stop: 04/16/21 19:25 Last Admin: 04/16/21 14:37 Dose: 200 mls/hr Documented by: PAKO Labs: Laboratory Tests 04/16/21 04/16/21 04/16/21 Range/Units 13:22 13:22 13:22 WBC 7.5 (4.0-10.0) x10^3/uL RBC 2.84 L (4.00-5.50) x10^6/uL Hgb 8.8 L (12.0-16.0) g/dL Hct 27.4 L (33.0-47.0) % MCV 96.5 H (78.0-93.0) fL MCH 31.0 (26.0-32.0) pg MCHC 32.1 (32.0-36.0) g/dL RDW Coeff of Gabrielle 13.3 (10.0-15.0) % Plt Count 429 H D (130-400) x10^3/uL Neut % (Auto) 82.4 H (50.0-80.0) % Lymph % (Auto) 10.8 L (25.0-50.0) % [place] % (Auto) 5.2 (2.0-11.0) % Eos % (Auto) 1.3 (0.0-4.0) % Baso % (Auto) 0.3 (0.2-1.2) % PT 9.9 (9.9-12.5) SEC INR 0.9 L (2.0-3.5) Sodium 141 (136-145) mmol/L Potassium 4.5 (3.5-5.1) mmol/L Chloride 104 (98-107) mmol/L Carbon Dioxide 29 (21-32) mmol/L Anion Gap 12.5 (5-15) mmol/L BUN 26 H (7-18) mg/dL Creatinine 1.1 H (0.55-1.02) mg/dL Est Cr Clr Drug Dosing TNP Estimated GFR (MDRD) 48 Glucose 133 H (70-99) mg/dL Lactic Acid (0.4-2.0) mmol/L Calcium 9.5 (8.5-10.1) mg/dL Corrected Calcium 10.1 (8.5-10.1) mg/dL Total Bilirubin 0.1 L (0.2-1.0) mg/dL AST 15 (15-37) U/L ALT 23 (14-59) U/L Alkaline Phosphatase 123 H (46-116) U/L Troponin I High Sens 5 (<=51) ng/L C-Reactive Protein 3.5 H (<=0.9) mg/dL Total Protein 7.8 (6.4-8.2) g/dL Albumin 3.2 L (3.4-5.0) g/dL Globulin 4.6 Albumin/Globulin Ratio 0.70 Amylase 67 (25-115) U/L Lipase 168 (73-393) U/L Urine Color (YELLOW) Urine Appearance (CLEAR) Urine pH (5.0-8.0) Ur Specific [place] Urine Protein (NEGATIVE) mg/dL Urine Glucose (UA) (NEGATIVE) mg/dL Urine Ketones (NEGATIVE) mg/dL Urine Occult Blood (NEGATIVE) Urine Nitrite (NEGATIVE) Urine Bilirubin (NEGATIVE) Urine Urobilinogen (0.2) EU/dL Ur Leukocyte Esterase (NEGATIVE) Urine RBC (NOT SEEN) /HPF Urine WBC (NOT SEEN) /HPF Ur Squamous Epith Cells (NOT SEEN) /HPF Urine Bacteria (NOT SEEN) /HPF Urine Mucus (NOT SEEN) /LPF 04/16/21 04/16/21 Range/Units 13:22 13:45 WBC (4.0-10.0) x10^3/uL RBC (4.00-5.50) x10^6/uL Hgb (12.0-16.0) g/dL Hct (33.0-47.0) % MCV (78.0-93.0) fL MCH (26.0-32.0) pg MCHC (32.0-36.0) g/dL RDW Coeff of Gabrielle (10.0-15.0) % Plt Count (130-400) x10^3/uL Neut % (Auto) (50.0-80.0) % Lymph % (Auto) (25.0-50.0) % [place] % (Auto) (2.0-11.0) % Eos % (Auto) (0.0-4.0) % Baso % (Auto) (0.2-1.2) % PT (9.9-12.5) SEC INR (2.0-3.5) Sodium (136-145) mmol/L Potassium (3.5-5.1) mmol/L Chloride (98-107) mmol/L Carbon Dioxide (21-32) mmol/L Anion Gap (5-15) mmol/L BUN (7-18) mg/dL Creatinine (0.55-1.02) mg/dL Est Cr Clr Drug Dosing Estimated GFR (MDRD) Glucose (70-99) mg/dL Lactic Acid 1.7 (0.4-2.0) mmol/L Calcium (8.5-10.1) mg/dL Corrected Calcium (8.5-10.1) mg/dL Total Bilirubin (0.2-1.0) mg/dL AST (15-37) U/L ALT (14-59) U/L Alkaline Phosphatase (46-116) U/L Troponin I High Sens (<=51) ng/L C-Reactive Protein (<=0.9) mg/dL Total Protein (6.4-8.2) g/dL Albumin (3.4-5.0) g/dL Globulin Albumin/Globulin Ratio Amylase (25-115) U/L Lipase (73-393) U/L Urine Color Light yellow (YELLOW) Urine Appearance Cloudy H (CLEAR) Urine pH 7.0 (5.0-8.0) Ur Specific [place] 1.020 Urine Protein 30 H (NEGATIVE) mg/dL Urine Glucose (UA) Negative (NEGATIVE) mg/dL Urine Ketones Negative (NEGATIVE) mg/dL Urine Occult Blood Small H (NEGATIVE) Urine Nitrite Positive H (NEGATIVE) Urine Bilirubin Negative (NEGATIVE) Urine Urobilinogen 0.2 (0.2) EU/dL Ur Leukocyte Esterase Large H (NEGATIVE) Urine RBC 0-5 (NOT SEEN) /HPF Urine WBC >100 H (NOT SEEN) /HPF Ur Squamous Epith Cells Few H (NOT SEEN) /HPF Urine Bacteria Few H (NOT SEEN) /HPF Urine Mucus Occasional H (NOT SEEN) /LPF Meds: Medications Generic Name Dose Route Start Last Admin Trade Name Freq PRN Reason Stop Dose Admin Sodium Chloride 1,000 mls @ 200 mls/hr 04/16/21 14:26 04/16/21 14:37 Normal Saline IV 04/16/21 19:25 200 mls/hr ONETIME ONE Administration Discontinued Medications Generic Name Dose Route Start Last Admin Trade Name Freq PRN Reason Stop Dose Admin Levofloxacin/Dextrose 500 mg/ 100 mls @ 100 mls/hr 04/16/21 14:27 04/16/21 14:36 Premix IV 04/16/21 15:26 100 mls/hr ONETIME ONE Administration - Radiology Interpretation Free Text/Narrative:: Chest xray: No acute findings See rad report - Re-Assessments/Exams Free Text/Narrative Re-Assessment/Exam: 04/16/21 15:50 Patient was found to have a UTI, IV Levaquin given as well as small amount of IV fluids. Patient will be discharged back to the care center with plan for Levaquin 250 mg once daily for 10 days. Departure - Departure Time of Disposition: 15:51 Disposition: DC/Tfer to Medicaid Nur Fac [facility] Condition: Good Clinical Impression: UTI, Urinary tract infectious disease - Discharge Information *PRESCRIPTION DRUG MONITORING PROGRAM REVIEWED*: No *COPY OF PRESCRIPTION DRUG MONITORING REPORT IN PATIENT VILMA: No Prescriptions: Levofloxacin 250 mg PO DAILY 10 Days #10 tablet Instructions: Urinary Tract Infection, Adult, [id number] Referrals: Ivy Olson DO [Primary Care Provider] - Additional Instructions: Levaquin 250 mg orally once daily for 10 days Encourage fluid intake Follow-up with primary care provider next week Return to the ER with any worsening of symptoms - My Orders Last 24 Hours: My Active Orders 04/16/21 13:00 Blood Culture x2 Reflex Set [OM.PC] Stat 04/16/21 13:02 EKG Documentation Completion [RC] STAT 04/16/21 13:22 CULTURE BLOOD [BC] Stat 04/16/21 13:26 CULTURE BLOOD [BC] Stat 04/16/21 13:45 CULTURE URINE [RM] Stat 04/16/21 14:26 Sodium Chloride 0.9% [Normal Saline] 1,000 ml IV ONETIME - Assessment/Plan Last 24 Hours: My Active Orders 04/16/21 13:00 Blood Culture x2 Reflex Set [OM.PC] Stat 04/16/21 13:02 EKG Documentation Completion [RC] STAT 04/16/21 13:22 CULTURE BLOOD [BC] Stat 04/16/21 13:26 CULTURE BLOOD [BC] Stat 04/16/21 13:45 CULTURE URINE [RM] Stat 04/16/21 14:26 Sodium Chloride 0.9% [Normal Saline] 1,000 ml IV ONETIME
[2021-04-16 13:58] LABS: ANION GAP 12.5 mmol/L (5-15); CHLORIDE,CL 104 mmol/L (98-107); SODIUM,NA 141 mmol/L (136-145)
[2021-04-16] MEDS ORDERED: Sodium Chloride 0.9% 1,000 ML IV ONE (14:26)
[2021-04-16] MEDS ORDERED: Levofloxacin/Dextrose 5%-Water 500 MG in Premix Bag 1 BAG IV ONE (14:27)
--- NOTE | 2021-04-16 15:11 | CR ---
[id number] RAD/RAD Chest PA or AP 1V EXAM: SINGLE VIEW CHEST. INDICATION: CHEST PAIN COMPARISON: CORRELATION IS MADE WITH AUGUST 29, 2020 FINDINGS: Elevation of the right hemidiaphragm again is seen The left lung is clear The cardiac silhouette is stable Scoliosis is identified IMPRESSION: NO ACUTE PROCESS NO NEW FINDINGS Herbie Brown MD 04/16/21 [id number] Thank you for allowing us to participate in the care of your patient.
[2021-04-16 20:41] VITALS: BP 145/73; PULSE 89
== END 2021-04-16 16:25 ==
LOC: VM.ED 12:49
DX: N39.0 Urinary tract infection, site not specified (principal); I10 Essential (primary) hypertension; K21.9 Gastro-esophageal reflux disease without esophagitis; G80.9 Cerebral palsy, unspecified; R56.9 Unspecified convulsions; Z88.1 Allergy status to other antibiotic agents; Z88.8 Allergy status to other drugs, medicaments and biological substances; Z88.0 Allergy status to penicillin; Z88.2 Allergy status to sulfonamides; Z79.899 Other long term (current) drug therapy
CPT/HCPCS: 36415; 71045; 80053; 81001; 82150; 83605; 83690; 84484; 85025; 85610; 86140; 87040; 87086; 87088; 87186; 93005; 96365; 99284; 99285-25; J1956; J7030

== ENCOUNTER 2021-07-04 18:45 | Observation (INO) | payer MEDICARE, MEDICAID ==
[2021-07-04] MEDS ORDERED: Ondansetron 4 MG/2 ML SDV IVPUSH ONE (18:57)
--- NOTE | 2021-07-04 18:59 | EDM.PDOC ---
ED HPI GENERAL MEDICAL PROBLEM - General Stated Complaint: altered mental status Time Seen by Provider: 07/04/21 18:45 Source of Information: Reports: EMS, EMS Notes Reviewed, Intermediate Records, Old Records History Limitations: Reports: Altered Mental Status - History of Present Illness INITIAL COMMENTS - FREE TEXT/NARRATIVE: Patient is a alf patient with spastic right sided cerebral palsy. She had an episode of unresponsiveness earlier today followed by lucid episode when she ate a large supper. After this she vomited and had decreased responsiveness again. She is chronically on 1 lpm of O2, EMS arrived and brought her here. IV fluids started and had an emesis en route, 4 lpm NC given . Patient is rousable to touch, leans to the right chronically Onset: Today - Related Data Allergies Allergy/AdvReac Type Severity Reaction Status Date / Time erythromycin base Allergy cannot Verified 07/04/21 19:50 [Erythromycin Base] remember] hydrochlorothiazide Allergy Cannot Verified 07/04/21 19:50 Remember Sulfa (Sulfonamide Allergy Cannot Verified 07/04/21 19:50 Antibiotics) Remember trimethoprim Allergy Cannot Verified 07/04/21 19:50 Remember Home Meds: Home Meds Acetaminophen 500 mg PO BID 05/18/19 [History] Cranberry Fruit Extract [Cranberry] 425 mg PO DAILY 05/18/19 [History] Cyanocobalamin (Vitamin B12) [Vitamin B12] 1,000 mcg PO DAILY 05/18/19 [History] Cyclobenzaprine [Flexeril] 5 mg PO DAILY 05/18/19 [History] Folic Acid 1 mg PO DAILY 05/18/19 [History] Levothyroxine [Synthroid] 50 mcg PO DAILY 05/18/19 [History] polyethylene glycoL 3350 [MiraLAX] 17 gm PO DAILY 05/18/19 [History] Mirtazapine [Remeron] 7.5 mg PO BEDTIME #15 tab.dis 04/11/20 [Rx] Bisacodyl [Laxative Suppository] 10 mg RECTAL DAILY PRN 08/27/20 [History] Carboxymethylcellulose Sodium [Artificial Tears] 1 drop EYEBOTH BID 08/27/20 [History] Docusate Sodium [Colace] 100 mg PO DAILY 08/27/20 [History] Ondansetron [Zofran] 4 mg PO Q6HR PRN 08/27/20 [History] bisacodyL [Dulcolax] 5 mg PO DAILY PRN 08/27/20 [History] polyethylene glycoL 3350 [MiraLAX] 17 gm PO DAILY PRN 08/27/20 [History] Albuterol [Proventil Neb Soln] 2.5 mg NEB Q4HRRT PRN neb 08/31/20 [Rx] Ferrous Gluconate 324 mg PO Q48H 05/11/21 [History] Lactobacillus Rhamnosus GG [Culturelle] 1 cap PO DAILY 05/11/21 [History] carBAMazepine [Tegretol Suspension] 300 mg PO DAILY 05/11/21 [History] carBAMazepine [Tegretol Suspension] 350 mg PO BID 05/11/21 [History] Acetaminophen [Tylenol] 650 mg PO Q4H PRN 05/15/21 [History] Cefepime [Maxipime] 1 gm IVPUSH Q12H #3 vial 05/15/21 [Rx] Pantoprazole [ProTONIX] 40 mg PO ACBREAKFAST #30 tab.cr 05/15/21 [Rx] Potassium Chloride 7.5 ml PO DAILY 05/15/21 [History] Sodium Chloride 0.9% [Saline Flush] 10 ml FLUSH ASDIRECTED PRN syringe 05/15/21 [Rx] Gabapentin [Neurontin] 800 mg PO TID #0 05/16/21 [Rx] Past Medical History HEENT History: Reports: Cataract, Other (See Below) Other HEENT History: Dry Eyes Cardiovascular History: Reports: Heart Failure, Hypertension, [place] Respiratory History: Reports: Other (See Below) Gastrointestinal History: Reports: Chronic Constipation, GERD Genitourinary History: Reports: Urinary Incontinence, UTI, Recurrent LOCKSTITCH 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 Flaccid Hemiplegia affecting right dominant side Neurological History: Reports: Cerebral Palsy, Seizure, Other (See Below) Other Neuro History: Aphasia (following unspecified Cerebrovascular Disease), flaccid hemiplegia affecting right dominant side, localization-related symptomatic epilepsy and epileptic syndromes with complex partial seizures, not intractable, without status epilepticus Psychiatric History: Reports: Other (See Below) Other Psychiatric History: Unspecified Dementia Endocrine/Metabolic History: Reports: Hypothyroidism, Osteoporosis Other Endocrine/Metabolic History: hypomagnesemia. hypercalcemia Hematologic History: Reports: Anemia Dermatologic History: Reports: Eczema, Other (See Below) Other Dermatologic History: contact dermatitis - Infectious Disease History Infectious Disease History: Reports: MRSA Other Infectious Disease History: hx of mrsa and ltc isolation - Past Surgical History HEENT Surgical History: Reports: None Cardiovascular Surgical History: Reports: None Oncologic Surgical History: Reports: Biopsy of Breast Social & Family History - Family History Family Medical History: No Pertinent Family History Cardiac: Reports: None Respiratory: Reports: None GI: Reports: None Musculoskeletal: Reports: Osteoporosis Neurological: Reports: Cerebral Palsy, Seizure Endocrine/Metabolic: Reports: Osteoporosis Hematologic: Reports: Anemia Dermatologic: Reports: Eczema Oncologic: Reports: None - Caffeine Use Caffeine Use: Reports: None - Living Situation & Occupation Living situation: Reports: Single, Extended Care Facility Occupation: Disabled ED ROS GENERAL - Review of Systems Review Of Systems: Unable To Obtain Reason Not Obtained: patient not responsive ED EXAM, GENERAL - Physical Exam Exam: See Below Exam Limited By: Altered Mental Status General Appearance: No Apparent Distress Eye Exam: Bilateral Eye: EOMI, Normal Inspection, PERRL Ear Exam: Bilateral Ear: Auricle Normal, Canal Normal, TM normal Nose: Normal Inspection, Normal Mucosa, No Blood Throat/Mouth: Normal Inspection, Normal Lips, Normal Teeth, Normal Voice Head: Atraumatic, Normocephalic Respiratory/Chest: Decreased Breath Sounds (at bases), Crackles Cardiovascular: Normal Peripheral Pulses, Regular Rate, Rhythm, No Murmur GI/Abdominal: Normal Bowel Sounds, Soft, Non-Tender Extremities: Other (rigth sided flacid noted arm and leg, leg held in flexion) Neurological: Other (pateint leans to the right, even after correcting her. Did answer hello and yes to me when asked questions) Skin Exam: Warm #1 Interpretation EKG Date: 07/04/21 Time: 19:47 Rhythm: NSR Rate (Beats/Min): 96 Graham: Normal P-Wave: Present QRS: Normal ST-T: Normal QT: Normal Course - Vital Signs Last Recorded V/S: Last Vital Signs Temp 36.3 C 07/04/21 19:00 Pulse 98 07/04/21 19:00 Resp 22 H 07/04/21 19:00 BP 175/95 H 07/04/21 19:00 Pulse Ox 87 L 07/04/21 19:00 - Orders/Labs/Meds Orders: Active Orders 24 hr Category Date Time Status EKG Documentation Completion [RC] STAT Care 07/04/21 18:52 Active Insert Urinary Catheter [OM.PC] Q24H Care 07/04/21 19:00 Ordered Urinary Catheter Assessment [RC] ASDIRECTED Care 07/04/21 18:53 Active Chest 1V Frontal [CR] Stat Exams 07/04/21 18:52 Taken Head wo Cont [CT] Stat Exams 07/04/21 18:52 Taken C-REACTIVE PROTEIN [CHEM] Stat Lab 07/04/21 19:32 Received COMPREHENSIVE METABOLIC PN,CMP [CHEM] Stat Lab 07/04/21 19:32 Received CULTURE BLOOD [BC] Stat Lab 07/04/21 19:32 Results CULTURE BLOOD [BC] Stat Lab 07/04/21 19:42 Received LACTIC ACID [CHEM] Stat Lab 07/04/21 19:32 Received LACTIC ACID [CHEM] Timed Lab 07/04/21 23:00 Ordered TROPONIN I HIGH SENSITIVITY [CHEM] Stat Lab 07/04/21 19:32 Received TSH ULTRASENSITIVE [CHEM] Stat Lab 07/04/21 19:32 Received UA RFX MAREN AND CULT IF INDIC [URIN] Stat Lab 07/04/21 18:52 Ordered Sodium Chloride 0.9% [Normal Saline] 1,000 ml Med 07/04/21 19:00 Active IV ASDIRECTED cefTRIAXone [Rocephin] Med 07/04/21 20:32 Once 1 gm IVPUSH STAT ONE Blood Culture x2 Reflex Set [OM.PC] Stat Oth 07/04/21 18:52 Ordered Medication Orders Sodium Chloride (Normal Saline) 1,000 mls @ 1,000 mls/hr IV ASDIRECTED [facility] Labs: Laboratory Tests 07/04/21 07/04/21 Range/Units 18:53 19:32 WBC 8.4 (4.0-10.0) x10^3/uL RBC 3.95 L (4.00-5.50) x10^6/uL Hgb 11.9 L D (12.0-16.0) g/dL Hct 36.4 (33.0-47.0) % MCV 92.2 (78.0-93.0) fL MCH 30.1 (26.0-32.0) pg MCHC 32.7 (32.0-36.0) g/dL RDW Coeff of Gabrielle 15.4 H (10.0-15.0) % Plt Count 390 (130-400) x10^3/uL Neut % (Auto) 86.0 H (50.0-80.0) % Lymph % (Auto) 9.0 L (25.0-50.0) % Grayson % (Auto) 4.3 (2.0-11.0) % Eos % (Auto) 0.5 (0.0-4.0) % Baso % (Auto) 0.2 (0.2-1.2) % SARS CoV-2 RNA Rapid CHRISETLLE Negative (NEGATIVE) Meds: Medications Generic Name Dose Route Start Last Admin Trade Name Freq PRN Reason Stop Dose Admin Sodium Chloride 1,000 mls @ 1,000 mls/hr 07/04/21 19:00 Normal Saline IV ASDIRECTED ELLIOTT Discontinued Medications Generic Name Dose Route Start Last Admin Trade Name Freq PRN Reason Stop Dose Admin Ondansetron HCl 4 mg 07/04/21 18:57 Ondansetron 4 Mg/2 Ml Sdv IVPUSH 07/04/21 18:58 ONETIME ONE - Radiology Interpretation Free Text/Narrative:: chest x-ray with chronic elevation of right hemidiaphragm, otherwise stable Head CT with no acute change Both interpreted by Radiology - Re-Assessments/Exams Free Text/Narrative Re-Assessment/Exam: 07/04/21 19:31 Patient will be checked for covid, chest x-ray , o2 placed in mouth as a mouth breather. Ct of head to rule out intercranial bleed. EKG, barbosa cath and urine, labs, blood cultures x 2 07/04/21 20:33 fluids are infusing. no source for infection found yet. cath urine just done. lactic acid 2.4. repeat for 23:00 IV rocephin 1 gram 07/04/21 21:07 HAs UTI, sepsis from this in the past. Call from her sister found her interactive and talking this afternoon. Does have word finding problems .Will admit for concern for sepsis and UTI. last urine infection was pseudomonas and intermediate sensitivity to cipro and levaquin. Will start her inpatient on meropenem, already received Rocephin in the ED. Will see if improving in the morning. repeat lactic for 23:00 Departure - Departure Time of Disposition: 21:06 (Use this ER note as admission H&P) Disposition: Refer to Observation Clinical Impression: UTI (urinary tract infection), Elevated lactic acid level, Altered mental status, Vomiting Clinical Impression: (Ruled Out): UTI (urinary tract infection) due to Enterococcus - Discharge Information Referrals: Ivy Olson DO [Primary Care Provider] - Sepsis Event Note (ED) - Focused Exam Vital Signs: Vital Signs Temp Pulse Resp BP Pulse Ox 07/04/21 19:00 36.3 C 98 22 H 175/95 H 87 L - My Orders Last 24 Hours: My Active Orders 07/04/21 18:52 EKG Documentation Completion [RC] STAT Chest 1V Frontal [CR] Stat Head wo Cont [CT] Stat UA RFX MAREN AND CULT IF INDIC [URIN] Stat Blood Culture x2 Reflex Set [OM.PC] Stat 07/04/21 18:53 Urinary Catheter Assessment [RC] ASDIRECTED 07/04/21 19:00 Insert Urinary Catheter [OM.PC] Q24H Sodium Chloride 0.9% [Normal Saline] 1,000 ml IV ASDIRECTED 07/04/21 19:32 C-REACTIVE PROTEIN [CHEM] Stat COMPREHENSIVE METABOLIC PN,CMP [CHEM] Stat CULTURE BLOOD [BC] Stat LACTIC ACID [CHEM] Stat TROPONIN I HIGH SENSITIVITY [CHEM] Stat TSH ULTRASENSITIVE [CHEM] Stat 07/04/21 19:42 CULTURE BLOOD [BC] Stat 07/04/21 20:32 cefTRIAXone [Rocephin] 1 gm IVPUSH STAT ONE 07/04/21 23:00 LACTIC ACID [CHEM] Timed - Assessment/Plan Last 24 Hours: My Active Orders 07/04/21 18:52 EKG Documentation Completion [RC] STAT Chest 1V Frontal [CR] Stat Head wo Cont [CT] Stat UA RFX MAREN AND CULT IF INDIC [URIN] Stat Blood Culture x2 Reflex Set [OM.PC] Stat 07/04/21 18:53 Urinary Catheter Assessment [RC] ASDIRECTED 07/04/21 19:00 Insert Urinary Catheter [OM.PC] Q24H Sodium Chloride 0.9% [Normal Saline] 1,000 ml IV ASDIRECTED 07/04/21 19:32 C-REACTIVE PROTEIN [CHEM] Stat COMPREHENSIVE METABOLIC PN,CMP [CHEM] Stat CULTURE BLOOD [BC] Stat LACTIC ACID [CHEM] Stat TROPONIN I HIGH SENSITIVITY [CHEM] Stat TSH ULTRASENSITIVE [CHEM] Stat 07/04/21 19:42 CULTURE BLOOD [BC] Stat 07/04/21 20:32 cefTRIAXone [Rocephin] 1 gm IVPUSH STAT ONE 07/04/21 23:00 LACTIC ACID [CHEM] Timed
[2021-07-04] MEDS ORDERED: Sodium Chloride 0.9% 1,000 ML IV SCH (19:00)
[2021-07-04] MEDS ORDERED: cefTRIAXone 1 GM Vial IVPUSH ONE (20:32)
[2021-07-04 20:35] LABS: CHLORIDE,CL 101 mmol/L (98-107); SODIUM,NA 139 mmol/L (136-145)
[2021-07-04 20:36] LABS: ANION GAP 12.7 mmol/L (5-15)
--- NOTE | 2021-07-04 20:56 | CR ---
[id number] RAD/RAD Chest PA or AP 1V EXAM: SINGLE VIEW CHEST. INDICATION: HYPOXIA COMPARISON: CORRELATION IS MADE WITH MAY 11, 2021 FINDINGS: Elevation of the right hemidiaphragm again is seen The lungs otherwise are clear The cardiac silhouette is stable IMPRESSION: STABLE CHEST Herbie Brown MD [id number]/04/[id number] Thank you for allowing us to participate in the care of your patient.
--- NOTE | 2021-07-04 21:01 | CT ---
[id number] CT/CT Head WO IV EXAM: CT Head WO IV CLINICAL DATA: HYPOXIA COMPARISON: CORRELATION IS MADE WITH MAY 11, 2021 FINDINGS: There is ventriculomegaly This is stable since the last exam There is white matter hypodensity in the keys radiata on the left Likely there is a previous infarction There is no mass or mass effect There is no hemorrhage or extra-axial fluid collection IMPRESSION: No change since last exam Herbie Brown MD 07/04/21 2100 Thank you for allowing us to participate in the care of your patient.
[2021-07-04] MEDS ORDERED: Docusate Sodium 100 MG Cap PO PRN (21:18)
[2021-07-04] MEDS ORDERED: Ondansetron 4 MG Tab.DIS PO PRN (21:18)
[2021-07-04] MEDS ORDERED: Ondansetron 4 MG/2 ML SDV IV PRN (21:18)
[2021-07-04] MEDS ORDERED: Albuterol 2.5 MG/0.5 ML UD Neb NEB PRN (21:24)
[2021-07-04] MEDS ORDERED: Bisacodyl 10 MG Supp RECTAL PRN (21:24)
[2021-07-04] MEDS: Sodium Chloride 0.9% 1,000 ML IV SCH (23:41)
[2021-07-05] MEDS: Acetaminophen 325 MG Tab PO PRN ×2 (06:07→11:29)
[2021-07-05] MEDS: Pantoprazole 40 MG Tab.CR PO SCH (06:07)
[2021-07-05 07:12] LABS: ANION GAP 13.9 mmol/L (5-15)
[2021-07-05] MEDS: CARBAMAZEPINE 100 MG/5 ML PO SCH ×2 (07:49→20:30)
[2021-07-05] MEDS: Potassium Chloride 10% 20 MEQ/15 ML Soln 15 ML UD Cup PO SCH (07:53)
[2021-07-05] MEDS: Gabapentin 400 MG Cap PO SCH ×3 (07:55→20:30)
--- NOTE | 2021-07-05 07:56 | PCM.PN ---
- General Info Date of Service: 07/05/21 Admission Dx/Problem (Free Text): UTI R/O Sepsis Subjective Update: Patient is alert this am, good eye contact. No real verbal responses this am. Is moving the remote around with her left arm. HIstory of CP with left side spasticity, chronically leans to the right. Highest temp 99.0. Functional Status: Reports: Pain Controlled. Denies: Ambulating - Review of Systems General: Reports: Weakness, Other (ROS difficult to obtain due to limited verbal responses) - Patient Data Vitals - Most Recent: Last Vital Signs Temp 99.0 F 07/05/21 05:31 Pulse 110 H 07/05/21 05:31 Resp 18 07/05/21 05:31 BP 134/87 07/05/21 05:31 Pulse Ox 95 07/05/21 05:49 Weight - Most Recent: 123 lb 0.8 oz I&O - Last 24 Hours: Intake & Output 07/04/21 07/05/21 07/05/21 22:59 06:59 14:59 Intake Total 1500 Output Total 550 Balance 950 Lab Results Last 24 Hours: Laboratory Results - last 24 hr 07/04/21 07/04/21 07/04/21 Range/Units 18:53 19:32 19:32 WBC 8.4 (4.0-10.0) x10^3/uL RBC 3.95 L (4.00-5.50) x10^6/uL Hgb 11.9 L D (12.0-16.0) g/dL Hct 36.4 (33.0-47.0) % MCV 92.2 (78.0-93.0) fL MCH 30.1 (26.0-32.0) pg MCHC 32.7 (32.0-36.0) g/dL RDW Coeff of Gabrielle 15.4 H (10.0-15.0) % Plt Count 390 (130-400) x10^3/uL Neut % (Auto) 86.0 H (50.0-80.0) % Lymph % (Auto) 9.0 L (25.0-50.0) % [place] % (Auto) 4.3 (2.0-11.0) % Eos % (Auto) 0.5 (0.0-4.0) % Baso % (Auto) 0.2 (0.2-1.2) % Sodium 139 (136-145) mmol/L Potassium 3.7 (3.5-5.1) mmol/L Chloride 101 (98-107) mmol/L Carbon Dioxide 29 (21-32) mmol/L Anion Gap 12.7 (5-15) mmol/L BUN 25 H (7-18) mg/dL Creatinine 1.2 H (0.55-1.02) mg/dL Est Cr Clr Drug Dosing TNP Estimated GFR (MDRD) 43 Glucose 165 H (70-99) mg/dL Lactic Acid (0.4-2.0) mmol/L Calcium 9.4 (8.5-10.1) mg/dL Corrected Calcium 10.0 (8.5-10.1) mg/dL Magnesium (1.8-2.4) mg/dL Total Bilirubin 0.2 (0.2-1.0) mg/dL AST 12 L (15-37) U/L ALT 13 L (14-59) U/L Alkaline Phosphatase 149 H (46-116) U/L Troponin I High Sens < 4 (<=51) ng/L C-Reactive Protein 5.0 H (<=0.9) mg/dL Total Protein 8.8 H (6.4-8.2) g/dL Albumin 3.3 L (3.4-5.0) g/dL Globulin 5.5 Albumin/Globulin Ratio 0.60 TSH, Ultra Sensitive 2.789 (0.358-3.74) uIU/mL Urine Color (YELLOW) Urine Appearance (CLEAR) Urine pH (5.0-8.0) Ur Specific [place] Urine Protein (NEGATIVE) mg/dL Urine Glucose (UA) (NEGATIVE) mg/dL Urine Ketones (NEGATIVE) mg/dL Urine Occult Blood (NEGATIVE) Urine Nitrite (NEGATIVE) Urine Bilirubin (NEGATIVE) Urine Urobilinogen (0.2) EU/dL Ur Leukocyte Esterase (NEGATIVE) U Hyaline Cast (Auto) Urine RBC (NOT SEEN) /HPF Urine WBC (NOT SEEN) /HPF Ur Squamous Epith Cells (NOT SEEN) /HPF Urine Bacteria (NOT SEEN) /HPF Urine Mucus (NOT SEEN) /LPF SARS CoV-2 RNA Rapid CHRISTELLE Negative (NEGATIVE) 07/04/21 07/04/21 07/04/21 Range/Units 19:32 20:35 23:18 WBC (4.0-10.0) x10^3/uL RBC (4.00-5.50) x10^6/uL Hgb (12.0-16.0) g/dL Hct (33.0-47.0) % MCV (78.0-93.0) fL MCH (26.0-32.0) pg MCHC (32.0-36.0) g/dL RDW Coeff of Gabrielle (10.0-15.0) % Plt Count (130-400) x10^3/uL Neut % (Auto) (50.0-80.0) % Lymph % (Auto) (25.0-50.0) % [place] % (Auto) (2.0-11.0) % Eos % (Auto) (0.0-4.0) % Baso % (Auto) (0.2-1.2) % Sodium (136-145) mmol/L Potassium (3.5-5.1) mmol/L Chloride (98-107) mmol/L Carbon Dioxide (21-32) mmol/L Anion Gap (5-15) mmol/L BUN (7-18) mg/dL Creatinine (0.55-1.02) mg/dL Est Cr Clr Drug Dosing Estimated GFR (MDRD) Glucose (70-99) mg/dL Lactic Acid 2.4 H* 2.5 H* (0.4-2.0) mmol/L Calcium (8.5-10.1) mg/dL Corrected Calcium (8.5-10.1) mg/dL Magnesium (1.8-2.4) mg/dL Total Bilirubin (0.2-1.0) mg/dL AST (15-37) U/L ALT (14-59) U/L Alkaline Phosphatase (46-116) U/L Troponin I High Sens (<=51) ng/L C-Reactive Protein (<=0.9) mg/dL Total Protein (6.4-8.2) g/dL Albumin (3.4-5.0) g/dL Globulin Albumin/Globulin Ratio TSH, Ultra Sensitive (0.358-3.74) uIU/mL Urine Color Yellow (YELLOW) Urine Appearance Slightly cloudy H (CLEAR) Urine pH 7.0 (5.0-8.0) Ur Specific [place] 1.020 Urine Protein 100 H (NEGATIVE) mg/dL Urine Glucose (UA) Negative (NEGATIVE) mg/dL Urine Ketones Negative (NEGATIVE) mg/dL Urine Occult Blood Moderate H (NEGATIVE) Urine Nitrite Positive H (NEGATIVE) Urine Bilirubin Negative (NEGATIVE) Urine Urobilinogen 0.2 (0.2) EU/dL Ur Leukocyte Esterase Large H (NEGATIVE) U Hyaline Cast (Auto) Few Urine RBC 10-20 H (NOT SEEN) /HPF Urine WBC 40-50 H (NOT SEEN) /HPF Ur Squamous Epith Cells Moderate H (NOT SEEN) /HPF Urine Bacteria Moderate H (NOT SEEN) /HPF Urine Mucus Not seen (NOT SEEN) /LPF SARS CoV-2 RNA Rapid CHRISTELLE (NEGATIVE) 07/05/21 07/05/21 Range/Units 06:20 06:20 WBC 13.5 H (4.0-10.0) x10^3/uL RBC 3.18 L (4.00-5.50) x10^6/uL Hgb 9.6 L D (12.0-16.0) g/dL Hct 29.7 L (33.0-47.0) % MCV 93.4 H (78.0-93.0) fL MCH 30.2 (26.0-32.0) pg MCHC 32.3 (32.0-36.0) g/dL RDW Coeff of Gabrielle 15.3 H (10.0-15.0) % Plt Count 356 (130-400) x10^3/uL Neut % (Auto) 90.9 H (50.0-80.0) % Lymph % (Auto) 4.4 L (25.0-50.0) % [place] % (Auto) 4.3 (2.0-11.0) % Eos % (Auto) 0.3 (0.0-4.0) % Baso % (Auto) 0.1 L (0.2-1.2) % Sodium 142 (136-145) mmol/L Potassium 3.9 (3.5-5.1) mmol/L Chloride 106 (98-107) mmol/L Carbon Dioxide 26 (21-32) mmol/L Anion Gap 13.9 (5-15) mmol/L BUN 18 (7-18) mg/dL Creatinine 1.0 (0.55-1.02) mg/dL Est Cr Clr Drug Dosing 32.77 Estimated GFR (MDRD) 53 Glucose 117 H (70-99) mg/dL Lactic Acid (0.4-2.0) mmol/L Calcium 8.3 L (8.5-10.1) mg/dL Corrected Calcium (8.5-10.1) mg/dL Magnesium 2.0 (1.8-2.4) mg/dL Total Bilirubin (0.2-1.0) mg/dL AST (15-37) U/L ALT (14-59) U/L Alkaline Phosphatase (46-116) U/L Troponin I High Sens (<=51) ng/L C-Reactive Protein (<=0.9) mg/dL Total Protein (6.4-8.2) g/dL Albumin (3.4-5.0) g/dL Globulin Albumin/Globulin Ratio TSH, Ultra Sensitive (0.358-3.74) uIU/mL Urine Color (YELLOW) Urine Appearance (CLEAR) Urine pH (5.0-8.0) Ur Specific [place] Urine Protein (NEGATIVE) mg/dL Urine Glucose (UA) (NEGATIVE) mg/dL Urine Ketones (NEGATIVE) mg/dL Urine Occult Blood (NEGATIVE) Urine Nitrite (NEGATIVE) Urine Bilirubin (NEGATIVE) Urine Urobilinogen (0.2) EU/dL Ur Leukocyte Esterase (NEGATIVE) U Hyaline Cast (Auto) Urine RBC (NOT SEEN) /HPF Urine WBC (NOT SEEN) /HPF Ur Squamous Epith Cells (NOT SEEN) /HPF Urine Bacteria (NOT SEEN) /HPF Urine Mucus (NOT SEEN) /LPF SARS CoV-2 RNA Rapid CHRISTELLE (NEGATIVE) David Results Last 24 Hours: Microbiology 07/04/21 19:32 Anaerobic Blood Culture - Final Blood - Venous Med Orders - Current: Current Medications Acetaminophen (Acetaminophen 325 Mg Tab) 650 mg PO Q4H PRN PRN Reason: Pain (Mild 1-3)/fever Last Admin: 07/05/21 06:07 Dose: 650 mg Documented by: Albuterol (Albuterol 2.5 Mg/0.5 Ml Ud Neb) 2.5 mg NEB Q4HRRT PRN PRN Reason: Shortness of Breath Bisacodyl (Bisacodyl 10 Mg Supp) 10 mg RECTAL DAILY PRN PRN Reason: Constipation Carbamazepine (Carbamazepine 100 Mg/5 Ml Susp 10 Ml Ud Cup) 350 mg PO BID [facility] Cyanocobalamin (Cyanocobalamin (Vitamin B12) 1,000 Mcg Tab) 1,000 mcg PO DAILY [facility] Cyclobenzaprine HCl (Cyclobenzaprine 10 Mg Tab) 5 mg PO DAILY [facility] Docusate Sodium (Docusate Sodium 100 Mg Cap) 100 mg PO BID PRN PRN Reason: Constipation Enoxaparin Sodium (Enoxaparin 40 Mg/0.4 Ml Syringe) 40 mg SUBCUT DAILY [facility] Ferrous Sulfate (Ferrous Sulfate 325 Mg Tab) 324 mg PO Q48H [facility] Folic Acid (Folic Acid 1 Mg Tab) 1 mg PO DAILY [facility] Gabapentin (Gabapentin 400 Mg Cap) 800 mg PO TID [facility] Sodium Chloride (Normal Saline) 1,000 mls @ 1,000 mls/hr IV ASDIRECTED [facility] Last Admin: 07/04/21 21:00 Dose: 1,000 mls/hr Documented by: Meropenem 1 gm/ Sodium (Chloride) 100 mls @ 200 mls/hr IV Q12H [facility] Sodium Chloride (Normal Saline) 1,000 mls @ 100 mls/hr IV ASDIRECTED [facility] Last Admin: 07/04/21 23:41 Dose: 100 mls/hr Documented by: Lactobacillus Rhamnosus (Lactobacillus Rhamnosus Gg (Probiotic) Cap) 1 cap PO DAILY [facility] Levothyroxine Sodium (Levothyroxine 50 Mcg Tab) 50 mcg PO DAILY [facility] Ondansetron HCl (Ondansetron 4 Mg Tab.Dis) 4 mg PO Q4H PRN PRN Reason: nausea, able to take PO Ondansetron HCl (Ondansetron 4 Mg/2 Ml Sdv) 4 mg IV Q4H PRN PRN Reason: Nausea/Vomiting Pantoprazole Sodium (Pantoprazole 40 Mg Tab.Cr) 40 mg PO ACBREAKFAST [facility] Last Admin: 07/05/21 06:07 Dose: 40 mg Documented by: Potassium Chloride (Potassium Chloride 10% 20 Meq/15 Ml Soln 15 Ml Ud Cup) 7.5 meq PO DAILY [facility] Discontinued Medications Ceftriaxone Sodium (Ceftriaxone 1 Gm Vial) 1 gm IVPUSH STAT ONE Stop: 07/04/21 20:33 Last Admin: 07/04/21 21:05 Dose: 1 gm Documented by: Ondansetron HCl (Ondansetron 4 Mg/2 Ml Sdv) 4 mg IVPUSH ONETIME ONE Stop: 07/04/21 18:58 Last Admin: 07/04/21 22:00 Dose: Not Given Documented by: - Exam Quality Assessment: Supplemental Oxygen General: Alert, Cooperative, No Acute Distress HEENT: Mucous Membr. Moist/[place] Neck: Supple Lungs: Decreased Breath Sounds, Crackles Cardiovascular: Regular Rate, Regular Rhythm GI/Abdominal Exam: Normal Bowel Sounds, Soft, Non-Tender Extremities: Normal Inspection, No Pedal Edema, Limited Range of Motion (stiff, keeps right arm extended. Pre-existing condition due to CP) Skin: Warm, Dry Neurological: No New Focal Deficit - Patient Data Lab Results Last 24 hrs: Laboratory Results - last 24 hr 07/04/21 07/04/21 07/04/21 Range/Units 18:53 19:32 19:32 WBC 8.4 (4.0-10.0) x10^3/uL RBC 3.95 L (4.00-5.50) x10^6/uL Hgb 11.9 L D (12.0-16.0) g/dL Hct 36.4 (33.0-47.0) % MCV 92.2 (78.0-93.0) fL MCH 30.1 (26.0-32.0) pg MCHC 32.7 (32.0-36.0) g/dL RDW Coeff of Gabrielle 15.4 H (10.0-15.0) % Plt Count 390 (130-400) x10^3/uL Neut % (Auto) 86.0 H (50.0-80.0) % Lymph % (Auto) 9.0 L (25.0-50.0) % [place] % (Auto) 4.3 (2.0-11.0) % Eos % (Auto) 0.5 (0.0-4.0) % Baso % (Auto) 0.2 (0.2-1.2) % Sodium 139 (136-145) mmol/L Potassium 3.7 (3.5-5.1) mmol/L Chloride 101 (98-107) mmol/L Carbon Dioxide 29 (21-32) mmol/L Anion Gap 12.7 (5-15) mmol/L BUN 25 H (7-18) mg/dL Creatinine 1.2 H (0.55-1.02) mg/dL Est Cr Clr Drug Dosing TNP Estimated GFR (MDRD) 43 Glucose 165 H (70-99) mg/dL Lactic Acid (0.4-2.0) mmol/L Calcium 9.4 (8.5-10.1) mg/dL Corrected Calcium 10.0 (8.5-10.1) mg/dL Magnesium (1.8-2.4) mg/dL Total Bilirubin 0.2 (0.2-1.0) mg/dL AST 12 L (15-37) U/L ALT 13 L (14-59) U/L Alkaline Phosphatase 149 H (46-116) U/L Troponin I High Sens < 4 (<=51) ng/L C-Reactive Protein 5.0 H (<=0.9) mg/dL Total Protein 8.8 H (6.4-8.2) g/dL Albumin 3.3 L (3.4-5.0) g/dL Globulin 5.5 Albumin/Globulin Ratio 0.60 TSH, Ultra Sensitive 2.789 (0.358-3.74) uIU/mL Urine Color (YELLOW) Urine Appearance (CLEAR) Urine pH (5.0-8.0) Ur Specific [place] Urine Protein (NEGATIVE) mg/dL Urine Glucose (UA) (NEGATIVE) mg/dL Urine Ketones (NEGATIVE) mg/dL Urine Occult Blood (NEGATIVE) Urine Nitrite (NEGATIVE) Urine Bilirubin (NEGATIVE) Urine Urobilinogen (0.2) EU/dL Ur Leukocyte Esterase (NEGATIVE) U Hyaline Cast (Auto) Urine RBC (NOT SEEN) /HPF Urine WBC (NOT SEEN) /HPF Ur Squamous Epith Cells (NOT SEEN) /HPF Urine Bacteria (NOT SEEN) /HPF Urine Mucus (NOT SEEN) /LPF SARS CoV-2 RNA Rapid CHRISTELLE Negative (NEGATIVE) 07/04/21 07/04/21 07/04/21 Range/Units 19:32 20:35 23:18 WBC (4.0-10.0) x10^3/uL RBC (4.00-5.50) x10^6/uL Hgb (12.0-16.0) g/dL Hct (33.0-47.0) % MCV (78.0-93.0) fL MCH (26.0-32.0) pg MCHC (32.0-36.0) g/dL RDW Coeff of Gabrielle (10.0-15.0) % Plt Count (130-400) x10^3/uL Neut % (Auto) (50.0-80.0) % Lymph % (Auto) (25.0-50.0) % [place] % (Auto) (2.0-11.0) % Eos % (Auto) (0.0-4.0) % Baso % (Auto) (0.2-1.2) % Sodium (136-145) mmol/L Potassium (3.5-5.1) mmol/L Chloride (98-107) mmol/L Carbon Dioxide (21-32) mmol/L Anion Gap (5-15) mmol/L BUN (7-18) mg/dL Creatinine (0.55-1.02) mg/dL Est Cr Clr Drug Dosing Estimated GFR (MDRD) Glucose (70-99) mg/dL Lactic Acid 2.4 H* 2.5 H* (0.4-2.0) mmol/L Calcium (8.5-10.1) mg/dL Corrected Calcium (8.5-10.1) mg/dL Magnesium (1.8-2.4) mg/dL Total Bilirubin (0.2-1.0) mg/dL AST (15-37) U/L ALT (14-59) U/L Alkaline Phosphatase (46-116) U/L Troponin I High Sens (<=51) ng/L C-Reactive Protein (<=0.9) mg/dL Total Protein (6.4-8.2) g/dL Albumin (3.4-5.0) g/dL Globulin Albumin/Globulin Ratio TSH, Ultra Sensitive (0.358-3.74) uIU/mL Urine Color Yellow (YELLOW) Urine Appearance Slightly cloudy H (CLEAR) Urine pH 7.0 (5.0-8.0) Ur Specific [place] 1.020 Urine Protein 100 H (NEGATIVE) mg/dL Urine Glucose (UA) Negative (NEGATIVE) mg/dL Urine Ketones Negative (NEGATIVE) mg/dL Urine Occult Blood Moderate H (NEGATIVE) Urine Nitrite Positive H (NEGATIVE) Urine Bilirubin Negative (NEGATIVE) Urine Urobilinogen 0.2 (0.2) EU/dL Ur Leukocyte Esterase Large H (NEGATIVE) U Hyaline Cast (Auto) Few Urine RBC 10-20 H (NOT SEEN) /HPF Urine WBC 40-50 H (NOT SEEN) /HPF Ur Squamous Epith Cells Moderate H (NOT SEEN) /HPF Urine Bacteria Moderate H (NOT SEEN) /HPF Urine Mucus Not seen (NOT SEEN) /LPF SARS CoV-2 RNA Rapid CHRISTELLE (NEGATIVE) 07/05/21 07/05/21 Range/Units 06:20 06:20 WBC 13.5 H (4.0-10.0) x10^3/uL RBC 3.18 L (4.00-5.50) x10^6/uL Hgb 9.6 L D (12.0-16.0) g/dL Hct 29.7 L (33.0-47.0) % MCV 93.4 H (78.0-93.0) fL MCH 30.2 (26.0-32.0) pg MCHC 32.3 (32.0-36.0) g/dL RDW Coeff of Gabrielle 15.3 H (10.0-15.0) % Plt Count 356 (130-400) x10^3/uL Neut % (Auto) 90.9 H (50.0-80.0) % Lymph % (Auto) 4.4 L (25.0-50.0) % [place] % (Auto) 4.3 (2.0-11.0) % Eos % (Auto) 0.3 (0.0-4.0) % Baso % (Auto) 0.1 L (0.2-1.2) % Sodium 142 (136-145) mmol/L Potassium 3.9 (3.5-5.1) mmol/L Chloride 106 (98-107) mmol/L Carbon Dioxide 26 (21-32) mmol/L Anion Gap 13.9 (5-15) mmol/L BUN 18 (7-18) mg/dL Creatinine 1.0 (0.55-1.02) mg/dL Est Cr Clr Drug Dosing 32.77 Estimated GFR (MDRD) 53 Glucose 117 H (70-99) mg/dL Lactic Acid (0.4-2.0) mmol/L Calcium 8.3 L (8.5-10.1) mg/dL Corrected Calcium (8.5-10.1) mg/dL Magnesium 2.0 (1.8-2.4) mg/dL Total Bilirubin (0.2-1.0) mg/dL AST (15-37) U/L ALT (14-59) U/L Alkaline Phosphatase (46-116) U/L Troponin I High Sens (<=51) ng/L C-Reactive Protein (<=0.9) mg/dL Total Protein (6.4-8.2) g/dL Albumin (3.4-5.0) g/dL Globulin Albumin/Globulin Ratio TSH, Ultra Sensitive (0.358-3.74) uIU/mL Urine Color (YELLOW) Urine Appearance (CLEAR) Urine pH (5.0-8.0) Ur Specific [place] Urine Protein (NEGATIVE) mg/dL Urine Glucose (UA) (NEGATIVE) mg/dL Urine Ketones (NEGATIVE) mg/dL Urine Occult Blood (NEGATIVE) Urine Nitrite (NEGATIVE) Urine Bilirubin (NEGATIVE) Urine Urobilinogen (0.2) EU/dL Ur Leukocyte Esterase (NEGATIVE) U Hyaline Cast (Auto) Urine RBC (NOT SEEN) /HPF Urine WBC (NOT SEEN) /HPF Ur Squamous Epith Cells (NOT SEEN) /HPF Urine Bacteria (NOT SEEN) /HPF Urine Mucus (NOT SEEN) /LPF SARS CoV-2 RNA Rapid CHRISTELLE (NEGATIVE) Result Diagrams: 07/05/21 06:20 07/05/21 06:20 David Results Last 24 hrs: Microbiology 07/04/21 19:32 Anaerobic Blood Culture - Final Blood - Venous Sepsis Event Note - Evaluation Sepsis Screening Result: Possible Sepsis Risk - Focused Exam Vital Signs: Vital Signs Temp Pulse Resp BP Pulse Ox 07/05/21 05:49 95 07/05/21 05:31 99.0 F 110 H 18 134/87 93 L 07/05/21 02:27 98.9 F 86 20 125/90 96 07/05/21 02:14 97 07/05/21 00:21 96 07/04/21 22:05 98.6 F 94 20 134/85 95 - Problem List & Annotations (1) Elevated lactic acid level SNOMED Code(s): 0502505 Code(s): R79.89 - OTHER SPECIFIED ABNORMAL FINDINGS OF BLOOD CHEMISTRY Status: Acute Priority: High Current Visit: Yes (2) UTI (urinary tract infection) SNOMED Code(s): 27432885 Code(s): N39.0 - URINARY TRACT INFECTION, SITE NOT SPECIFIED Status: Acute Priority: High Current Visit: Yes Qualifiers: Urinary tract infection type: acute cystitis - Problem List Review Problem List Initiated/Reviewed/Updated: Yes - Assessment Assessment:: UTI R/O Sepsis - Plan Plan:: Labs this am show elevation of WBC now at 13.5. Hemoglobin down to 9.6. Electrolytes are normal. Initial blood culture and urine culture pending. Vital signs are stable. Blood pressure 134/87. Oxygen sat 95% on 2 liters, is chronically on 1 liter. Will continue with IV fluids, Merepenum. Await blood and urine cultures and determine potential discharge tomorrow back to the residential after received.
[2021-07-05] MEDS: Lactobacillus Rhamnosus GG (Probiotic) Cap PO SCH (07:57)
[2021-07-05] MEDS: Cyclobenzaprine 10 MG Tab PO SCH (07:58)
[2021-07-05] MEDS: Folic Acid 1 MG Tab PO SCH (07:58)
[2021-07-05] MEDS: Levothyroxine 50 MCG Tab PO SCH (07:58)
[2021-07-05] MEDS: Enoxaparin 40 MG/0.4 ML Syringe SUBCUT SCH (07:59)
[2021-07-05] MEDS: Meropenem 1 GM in Sodium Chloride 0.9% 100 ML IV SCH ×2 (08:00→20:29)
[2021-07-05] MEDS: Cyanocobalamin (Vitamin B12) 1,000 MCG Tab PO SCH (08:00)
[2021-07-05] MEDS ORDERED: Ferrous Sulfate 325 MG Tab PO SCH (09:00)
[2021-07-06] MEDS: Sodium Chloride 0.9% 1,000 ML IV SCH (05:47)
[2021-07-06] MEDS: Pantoprazole 40 MG Tab.CR PO SCH (06:53)
[2021-07-06 07:32] LABS: ANION GAP 11.5 mmol/L (5-15)
[2021-07-06] MEDS: Cyclobenzaprine 10 MG Tab PO SCH (08:21)
[2021-07-06] MEDS: Levothyroxine 50 MCG Tab PO SCH (08:21)
[2021-07-06] MEDS: Lactobacillus Rhamnosus GG (Probiotic) Cap PO SCH (08:21)
[2021-07-06] MEDS: Gabapentin 400 MG Cap PO SCH (08:21)
[2021-07-06] MEDS: Folic Acid 1 MG Tab PO SCH (08:21)
[2021-07-06] MEDS: Cyanocobalamin (Vitamin B12) 1,000 MCG Tab PO SCH (08:22)
[2021-07-06] MEDS: Potassium Chloride 10% 20 MEQ/15 ML Soln 15 ML UD Cup PO SCH (08:22)
[2021-07-06] MEDS: Meropenem 1 GM in Sodium Chloride 0.9% 100 ML IV SCH (08:22)
[2021-07-06] MEDS: CARBAMAZEPINE 100 MG/5 ML PO SCH (08:23)
[2021-07-06] MEDS: Enoxaparin 40 MG/0.4 ML Syringe SUBCUT SCH (08:23)
[2021-07-06] MEDS ORDERED: Metoprolol Succinate 25 MG Tab.ER PO SCH (09:00)
[2021-07-06 10:01] VITALS: BP 138/67
[2021-07-06 10:03] VITALS: PULSE 111
--- NOTE | 2021-07-06 10:56 | DISCH ---
PRIMARY DISCHARGE DIAGNOSES: 1. An unresponsive episode with vomiting and a Proteus urinary tract infection. 2. Proteus urinary tract infection with recurrent urinary tract infections and history of renal stones. 3. Seizure disorder, but no reported seizure. 4. Renal insufficiency related to dehydration, resolved with IV fluids. R sided Hydronephrosis with Staghorn calculous in the past outpatient US arranged. 5. Chronic anemia. Hemoglobin did decrease from 11.9 to 8.9 during her stay, but this was likely due to hemodilution. Her baseline hemoglobin has been 8.3 on previous admission, but it did go up to 12 in May. 6. Trouble swallowing with underlying cerebral palsy, but no cough or x-ray findings to suggest pneumonia. 7. Mild hypoxia on admission. The patient was able to be successfully weaned off oxygen. She was 95% on room air. 8. Essential hypertension and mild tachycardia. This had been noted also previously at the long term. The patient is now started on Toprol. 9. Hypothyroidism. She is on levothyroxine. Her TSH was normal during this stay. 10.Adjustment disorder. She is on her home medications for that. 11.Dementia related to her cerebral palsy. 12.History of gastritis no acute signs of GI bleeding. 13.Prediabetes. REASON FOR ADMISSION: On the date of admission, this 80-year-old female who is well known to me with multiple previous hospital admissions for UTI and sepsis, was actually having a good day. Her sister had seen her that day and the charge nurse was even surprised that she had some unresponsive episodes and then vomited up her supper. Therefore, was brought over to the ER for evaluation. She was found to be afebrile but had a positive UA. She was tachycardic. Her blood pressure was actually high, like 175 systolic. She was given IV fluids, IV Zofran, IV Rocephin, and had lab work and her white count was actually normal, but her lactic was 2.4. The patient was admitted due to past cultures. She was placed on IV meropenem. Her lactic initially went up to 2.5, but then normalized at 0.8. Overall, her clinical condition improved. She was alert. She was eating. She was tolerating a diet. She actually got several liters of IV fluids given and had good urine output. She has a Hinojosa catheter in place, but normally is not on one at the long term, so this was removed. The patient was not having any diarrhea. She had no further vomiting. Her blood pressures had improved control but still she was slightly tachycardic. Therefore, she was initiated on Toprol. The patient was also continued on her home Protonix, and her Neurontin and Tegretol for seizure prevention. DISCHARGE PLANS AND INSTRUCTIONS: The patient is going back to [facility]. She will be on Keflex 250 q.8 hours for 3 more days. She will have lab work that was already on file for July including a TSH, CMP, CBC, and ferritin. She will be on Toprol now 25 mg daily. They will check blood pressures and heart rates twice weekly and fax to me and they will push fluids to avoid dehydration. I also did discuss Urology follow up with the patient and her sister given her history of renal stone and they elected to proceed with the next planned visit, will be on 07/16. She will follow up with me on long term rounds. Her pelvic CT which was done back in August did show her to have a staghorn calculus in the right renal pelvis and multiple calices in moderate to right hydronephrosis. She has not had any followup imaging and her renal function did return to normal by discharge. Renal US being scheduled on d/c. DISCHARGE PHYSICAL EXAMINATION: Vital Signs: Discharging vitals include weight 55.7 kg, temp 98.9, pulse 112, blood pressure 138/67, respiratory rate is 16, O2 of 95% on room air. General: She is in no acute distress. Heart: Regular rate and rhythm. S1, S2 without murmur. Abdomen: Soft with positive bowel sounds. Extremities: Warm, dry. No edema. Mental Status: She is alert. She is answering questions appropriately. Skin: Mildly pale, but her extremities are warm to touch. Good perfusion. Greater than 30 minutes spent on this discharge process. MKA: 07/06/2021 10:20:57 MODL: 07/06/2021 10:51:31 /[id number]
== END 2021-07-06 11:15 ==
LOC: VM.ED 18:45 → VM.MS 21:03
PROVIDERS: ADMIT Physician Assistant; ATTEND Physician Assistant
DX: N39.0 Urinary tract infection, site not specified (principal); B95.2 Enterococcus as the cause of diseases classified elsewhere; N28.9 Disorder of kidney and ureter, unspecified; D53.9 Nutritional anemia, unspecified; R09.02 Hypoxemia; I10 Essential (primary) hypertension; E03.9 Hypothyroidism, unspecified; R73.03 Prediabetes; F43.20 Adjustment disorder, unspecified; F03.90 Unspecified dementia, unspecified severity, without behavioral disturbance, psychotic disturbance, mood disturbance, and anxiety; Z20.822 Contact with and (suspected) exposure to COVID-19; Z88.2 Allergy status to sulfonamides; Z88.1 Allergy status to other antibiotic agents; Z88.8 Allergy status to other drugs, medicaments and biological substances; Z79.890 Hormone replacement therapy; Z79.899 Other long term (current) drug therapy; I25.2 Old myocardial infarction; M81.0 Age-related osteoporosis without current pathological fracture
CPT/HCPCS: 36415; 51702; 70450; 71045; 80048; 80053; 81001; 83605; 83735; 84443; 84484; 85025; 86140; 87040; 87086; 87088; 87186; 93005; 96365; 96372; 96374; 96375; 96376; 99285-25; A9270-GY; G0378; J0696; J1650; J2185; J7030; U0002